=== PATIENT | female | born 1975 | race Two or more races ===

== ENCOUNTER 2020-06-28 08:38 | Emergency (ER) | payer MEDICAID, SELFPAY ==
[2020-06-28 08:45] VITALS: BP 145/75; PULSE 75; RESP 16; TEMP 36.9; O2SAT 98; BMI 30.5
--- NOTE | 2020-06-28 08:54 | ECG_ITS ---
Test Reason : CHEST WALL PAIN Blood Pressure : / mmHG Vent. Rate : 070 BPM Atrial Rate : 070 BPM P-R Int : 114 ms QRS Dur : 098 ms QT Int : 386 ms P-R-T Axes : 045 038 051 degrees QTc Int : 416 ms Normal sinus rhythm Normal ECG When compared with ECG of 25-APR-2020 08:44, No significant change was found Referred By: Martha Moore Electronically Signed By:ROLAND PRINCE MD
[2020-06-28 08:59] VITALS: PULSE 70
--- NOTE | 2020-06-28 09:01 | ED.ARRPALP ---
HPI - Arrhythmia/Palpitations General Chief Complaint: Arrhythmia/Palpitations Stated Complaint: CHEST PAIN Time Seen by Provider: 06/28/20 08:55 Source: patient Mode of arrival: ambulatory Limitations: no limitations History of Present Illness HPI narrative: patient comes to emergency room complaining of palpitations, and achiness on the left side of her chest. Patient states it started yesterday morning, it has been over 24 hours with a constant sensation in her chest. Patient states several months ago she was diagnosed with a DVT in her right upper extremity and back then she had palpitations. Patient states that she has a similar sensation in her chest, although her arm is not hurting. Patient denies fever chills cough or shortness of breath. MD complaint: palpitations Related Data Allergies Allergy/AdvReac Type Severity Reaction Status Date / Time Penicillins [PENICILLINS] Allergy Unknown RASH Unverified 05/24/20 18:56 sumatriptan [SUMATRIPTAN] Allergy Unknown DIFF Unverified 05/24/20 18:56 BREATHING Bunnys Allergy Unknown Rash/red Uncoded 06/05/17 00:00 eyes Cats Allergy Unknown Rash/red Uncoded 06/05/17 00:00 eye Dogs Allergy Unknown Rash/red Uncoded 06/05/17 00:00 eyes Review of Systems Review of Systems: Constitutional : No Weight loss, No Fever, No Chills, No Night Sweats, No Fatigue, No Malaise ENT/Mouth : No Hearing loss, No Ear Pain, No Nasal Congestion, No Sinus Pain, No Hoarseness, No sore throat, No Rhinorrhea, No Swallowing Difficulty Eyes: No Eye Pain, No Swelling, No Redness, No Foreign Body, No Discharge, No Vision Changes Cardiovascular : Achiness in the left side of the chest, No SOB, No Dyspnea on Exertion, No Orthopnea, No Edema, complaining of intermittent Palpitations Respiratory : No Cough, No Sputum, No Wheezing, No Smoke Exposure, No Dyspnea Gastrointestinal : No Nausea, No Vomiting, No Diarrhea, No Constipation, No abdominal Pain, No Hematochezia, No Melena Genitourinary : no irregular bleeding, No Dysuria, No Urinary Frequency, No Hematuria, No Urinary Incontinence, No Urgency, No Flank Pain, No Urinary Flow Changes, No Hesitancy Musculoskeletal : No joint pain, No Myalgias, No Joint Swelling Skin : No Skin Lesions, No rash Neuro : No Weakness, No Numbness, No Paresthesias, No Loss of Consciousness, No Dizziness, No Headache Psych : No Anxiety/Panic, No Depression, No SI/HI/AH/VH, No Social Issues, Heme/Lymph: No Bruising, No Bleeding,No Lymphadenopathy Endocrine : No Polyuria, No Polydipsia, No Temperature Intolerance FOR[facility]LY [facility] Past Medical History Medical History Diabetes DVT (deep venous thrombosis) Social History Social History Alcohol intake: never Smoked in Last 30 Days: No Use of substances other than those prescribed or required for medical reasons: No Advance Directives: No Advance Directives Information Provided: No Physical Exam Vital Signs: Vital Signs: Vital Signs Temp Pulse Resp BP Pulse Ox 06/28/20 08:45 98.4 F 75 16 145/75 H 98 Body Mass Index 30.5 Appearance: Alert. Oriented X3. No acute distress. Eyes: Pupils equal, round and reactive to light. ENT: Pharynx normal. Neck: Normal inspection. Neck supple. No lymph nodes noted. No crepitus CVS: Normal heart rate and rhythm. Pulses normal. Normal S1 and S2 Respiratory: No respiratory distress. Breath sounds normal. No Wheezing. No rales Abdomen: Soft and nontender. No rigidity. No distention. good BS x4 Skin: Skin warm and dry. Normal skin color. Normal skin turgor. Extremities: No lower extremity edema. No lower extremity edema. No Lacerations. No Rash Neuro: Oriented X 3. No motor deficit. No sensory deficit. Moving all extermities. No slurred speech. Course Course Course Narrative: at this time, patient is asymptomatic. I discussed with the patient her labs results, D-dimer negative, troponin negative, TSH within normal limits, EKG within normal limits. Patient struck to follow-up with her primary care physician. MDM - Arrhythmia/Palpitations Lab Data Result diagrams: 06/28/20 09:15 06/28/20 09:15 Labs: Lab Results 06/28/20 06/28/20 06/28/20 Range/Units 09:15 09:15 09:15 WBC 7.6 (4.8-10.8) X10*3/uL RBC 4.24 (4.20-5.50) X10*6/uL Hgb 9.5 L (12.0-16.0) g/dl Hct 31.4 L (37-47) % MCV 74.1 L (80-98) fL MCH 22.4 L (27.0-33.0) pg MCHC 30.3 L (31.0-35.0) g/dl RDW 17.6 H (11.0-16.0) % Plt Count 227 (160-400) X10*3/uL MPV 10.8 (9.4-12.3) fL Immature Gran % (Auto) 0.8 H (0.0-0.4) % Neut % (Auto) 68.2 (45-73) % Lymph % (Auto) 23.8 (20-40) % [place] % (Auto) 5.8 (2-11) % Eos % (Auto) 0.9 (0-4) % Baso % (Auto) 0.5 (0-2) % Lymph # (Auto) 1.8 (1.2-4.9) X10*3/uL [place] # (Auto) 0.4 (0.1-1.2) X10*3/uL Eos # (Auto) 0.1 (0.0-0.4) X10*3/uL Baso # (Auto) 0.0 (0.0-0.2) X10*3/uL Abs Immat Gran (auto) 0.06 H (0.00-0.03) X10*3/uL Absolute Neuts (auto) 5.2 (2.0-8.3) X10*3/uL Absolute Nucleated RBC 0.000 (0.0-0.012) X10*3/uL Nucleated RBC % (auto) 0.0 (0.0-0.2) /100WBC D-Dimer < 200 NG/ML Sodium 136 (135-145) mmol/L Potassium 4.2 (3.3-5.1) mmol/l Chloride 105 (96-108) mmol/L Carbon Dioxide 22 (22-29) mmol/L Anion Gap 13 (12-20) BUN 18 H (9-16) mg/dL Creatinine 0.79 (0.5-1.4) mg/dL Estim Creat Clear Calc 86.5 Estimated GFR > 60 Random Glucose 211 H (60-115) mg/dL Calcium 8.4 (8.4-10.2) mg/dL Troponin I High Sens (<3.5-17.0) ng/L TSH 1.10 (0.32-4.0) mIU/mL 06/28/20 Range/Units 09:15 WBC (4.8-10.8) X10*3/uL RBC (4.20-5.50) X10*6/uL Hgb (12.0-16.0) g/dl Hct (37-47) % MCV (80-98) fL MCH (27.0-33.0) pg MCHC (31.0-35.0) g/dl RDW (11.0-16.0) % Plt Count (160-400) X10*3/uL MPV (9.4-12.3) fL Immature Gran % (Auto) (0.0-0.4) % Neut % (Auto) (45-73) % Lymph % (Auto) (20-40) % [place] % (Auto) (2-11) % Eos % (Auto) (0-4) % Baso % (Auto) (0-2) % Lymph # (Auto) (1.2-4.9) X10*3/uL [place] # (Auto) (0.1-1.2) X10*3/uL Eos # (Auto) (0.0-0.4) X10*3/uL Baso # (Auto) (0.0-0.2) X10*3/uL Abs Immat Gran (auto) (0.00-0.03) X10*3/uL Absolute Neuts (auto) (2.0-8.3) X10*3/uL Absolute Nucleated RBC (0.0-0.012) X10*3/uL Nucleated RBC % (auto) (0.0-0.2) /100WBC D-Dimer NG/ML Sodium (135-145) mmol/L Potassium (3.3-5.1) mmol/l Chloride (96-108) mmol/L Carbon Dioxide (22-29) mmol/L Anion Gap (12-20) BUN (9-16) mg/dL Creatinine (0.5-1.4) mg/dL Estim Creat Clear Calc Estimated GFR Random Glucose (60-115) mg/dL Calcium (8.4-10.2) mg/dL Troponin I High Sens < 3.5 (<3.5-17.0) ng/L TSH (0.32-4.0) mIU/mL ECG Data Attestation: I personally reviewed and interpreted this ECG as follows: ( sinus rhythm, heart rate 70, QTC 416, no ST segment elevations or depressions, no T-wave inversions) Scores [place] DVT Alternative Dx as likely as or more likely than DVT: -2 Score: -2 2-tier Risk: unlikely risk (5%) 3-tier Risk: low risk (3%) Discharge Plan Discharge Clinical Impression: Palpitations, Chest pressure Patient Disposition: Home, Self-Care Instructions: Chest Pain (ED), Heart Palpitations (ED) Additional Instructions: Please follow-up with your primary care physician tomorrow. If you have any worsening or new symptoms, please return to the emergency room or call 911
[2020-06-28 09:24] LABS: MANUAL DIFF FLAG NO
--- NOTE | 2020-06-28 09:25 | PC.NURSE ---
pt does not remember doses and names of medications she takes.
[2020-06-28 09:35] LABS: Basophils Percent Auto 0.5 % (0-2); Eosinophils Absolute Auto 0.1 X10*3/uL (0.0-0.4); Eosinophils Percent Auto 0.9 % (0-4); Hematocrit 31.4 % (37-47); Hemoglobin 9.5 g/dl (12.0-16.0); Imm Gran Abs Auto 0.06 X10*3/uL (0.00-0.03); Imm Gran Pct Auto 0.8 % (0.0-0.4); Lymphocytes Absolute Auto 1.8 X10*3/uL (1.2-4.9); Lymphocytes Percent Auto 23.8 % (20-40); Mean Corpuscular HGB Conc 30.3 g/dl (31.0-35.0); Mean Corpuscular Hemoglobin 22.4 pg (27.0-33.0); Mean Corpuscular Volume 74.1 fL (80-98); Mean Platelet Volume 10.8 fL (9.4-12.3); Monocytes Absolute Auto 0.4 X10*3/uL (0.1-1.2); Monocytes Percent Auto 5.8 % (2-11); Neutrophils Absolute Auto 5.2 X10*3/uL (2.0-8.3); Neutrophils Percent Auto 68.2 % (45-73); Platelet Count 227 X10*3/uL (160-400); Red Blood Count 4.24 X10*6/uL (4.20-5.50); Red Cell Distribution Width 17.6 % (11.0-16.0); White Blood Count 7.6 X10*3/uL (4.8-10.8)
[2020-06-28 09:44] LABS: Anion Gap 13 (12-20); Blood Urea Nitrogen 18 mg/dL (9-16); Calcium 8.4 mg/dL (8.4-10.2); Carbon Dioxide 22 mmol/L (22-29); Chloride 105 mmol/L (96-108); Creatinine Clr Calc Pharmacy 86.5; Estimated Glomerular Filt Rate > 60; Glucose Random 211 mg/dL (60-115); Potassium 4.2 mmol/l (3.3-5.1); Sodium 136 mmol/L (135-145)
[2020-06-28 09:48] LABS: D Dimer < 200 NG/ML
[2020-06-28 09:52] LABS: Troponin-I High Sensitivity < 3.5 ng/L (<3.5-17.0)
== END 2020-06-28 10:52 | disposition home or self-care (01) ==
PROVIDERS: Emergency Provider Emergency Medicine; PCP Emergency Medicine
DX: R00.2 Palpitations (principal); R07.89 Other chest pain; Z86.718 Personal history of other venous thrombosis and embolism; Z79.899 Other long term (current) drug therapy
CPT/HCPCS: 36415; 80048; 84443; 84484; 85025; 85379; 93005; 99284

== ENCOUNTER 2020-08-25 13:02 | Emergency (ER) | payer OTHER, MEDICAID, SELFPAY ==
[2020-08-25 13:25] VITALS: BP 124/67; PULSE 74; RESP 18; TEMP 36.9; O2SAT 98; BMI 29.2
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
== END 2020-08-25 14:06 | disposition home or self-care (01) ==
PROVIDERS: Emergency Provider Emergency Medicine
DX: S00.83XA Contusion of other part of head, initial encounter (principal); G44.309 Post-traumatic headache, unspecified, not intractable; V43.52XA Car driver injured in collision with other type car in traffic accident, initial encounter; Y93.9 Activity, unspecified; Y92.410 Unspecified street and highway as the place of occurrence of the external cause; Y99.9 Unspecified external cause status
CPT/HCPCS: 99283

== ENCOUNTER 2020-10-07 13:53 | Emergency (ER) | payer MEDICAID, SELFPAY ==
[2020-10-07 14:26] VITALS: BP 188/79; PULSE 86; RESP 16; TEMP 36.9; O2SAT 99; BMI 29.4
[2020-10-07] MEDS: 0.9 % Sodium Chloride 1,000 ML 999 ML IVCONT (15:36)
--- NOTE | 2020-10-07 15:42 | ED_ITS ---
HPI - General Adult General Chief complaint: Nausea/Vomiting/Diarrhea Stated complaint: abd pain Time Seen by Provider: 10/07/20 15:27 Source: patient Mode of arrival: ambulatory Limitations: no limitations History of Present Illness HPI narrative: 45-year-old female walked in with 6 days of nonbloody watery diarrhea, associated with intermittent crampy pain of the abdomen. Pain started 6 days ago, described as intermittent crampy pain, no radiation of the pain, any type of food will make the pain and diarrhea worse, nothing relieves the symptoms. Otherwise patient declined nausea and vomiting, patient has been having good appetite. No fever, no chills. Related Data Previous Rx's Medication Instructions Recorded loperamide [Anti-Diarrheal 2 mg PO Q6H PRN #10 cap 10/07/20 (loperamide)] Allergies Allergy/AdvReac Type Severity Reaction Status Date / Time Penicillins [PENICILLINS] Allergy Unknown RASH Verified 08/25/20 13:24 sumatriptan [SUMATRIPTAN] Allergy Unknown DIFF Verified 08/25/20 13:24 BREATHING Bunnys Allergy Unknown Rash/red Uncoded 06/05/17 00:00 eyes Cats Allergy Unknown Rash/red Uncoded 06/05/17 00:00 eye Dogs Allergy Unknown Rash/red Uncoded 06/05/17 00:00 eyes Review of Systems Review of Systems: All other systems are reviewed and are negative Constitutional: Reports as per HPI and Reports no additional constitutional complaints Eyes: Reports as per HPI and Reports no additional eye complaints Reports system reviewed and no additional complaints, except as documented Cardiovascular: Reports as per HPI and Reports no additional cardiovascular complaints Respiratory: Reports as per HPI and Reports no additional respiratory complaints Gastrointestinal: Reports as per HPI and Reports no additional gastrointestinal complaints Genitourinary: Reports no additional female genitourinary complaints Musculoskeletal: Reports no additional musculoskeletal complaints Skin/Breast: Reports system reviewed and no additional complaints, except as docu Psychiatric: Reports no additional psychiatric complaints Endocrine: Reports no additional endocrine complaints Hematologic/Lymphatic: Reports no additional hematologic/lymphatic complaints Allergic/Immunologic: Reports no additional allergic/immunologic complaints Reports system reviewed and no additional complaints, except as documented and Reports Abnormal speech present [facility] Past Medical History Medical History Diabetes DVT (deep venous thrombosis) Social History Social History Alcohol intake: never Smoking Status: Never smoker Use of substances other than those prescribed or required for medical reasons: No Advance Directives: No Advance Directives Information Provided: Yes Physical Exam Vital Signs: Vital Signs: Last Vital Signs Temp 98.5 F 10/07/20 14:26 Pulse 75 10/07/20 15:52 Resp 18 10/07/20 15:52 BP 109/48 L 10/07/20 15:52 Pulse Ox 100 10/07/20 15:52 Body Mass Index 29.4 Vital signs have been reviewed as normal and appeared to be correct. Blood pressure normal. Heart rate normal. Respiration rate normal. Temperature normal. Oxygen saturation normal. Appearance: Alert. Oriented X3. No acute distress. Head: Normal external exam. Normocephalic. Atraumatic. No Ly signs noted. No raccoon eyes noted Eyes: PERRLA. EOMI. Conjunctiva and sclera normal. Eyelids normal. ENT: EAC normal. TM's Normal. Pharynx normal. Uvula midline. Moist mucous membranes. No trismus noted. No drooling noted. No muffled voice noted. Neck: Normal inspection. Neck supple. FROM. No adenopathy. Thyroid Normal. No meningeal signs. No neck mass noted. CVS: Normal heart rate and rhythm. Heart sound normal. No murmurs noted. Pulses normal throughout. Respiratory: No respiratory distress. Painless inspiration. Breath sounds normal. No wheezes/rales/rhonchi noted. Chest nontender. No accessory muscle usage noted or decreased air movement noted. Abdomen: Soft, mild tenderness in the left lower quadrant, no rebound, no guarding.. Bowel sounds normal in all 4 quadrants. No distention noted. No organomegaly noted. No visible injury noted. Back: No CVA tenderness. Full range of motion noted. Skin: Skin warm and dry. Normal skin color. Normal skin turgor. No rashes/lesions/lacerations noted. Extremities: No lower extremity edema. Extremities exhibit normal range of motion. Extremities nontender. Neuro: Oriented X 3. No motor deficit. No sensory deficit. Reflexes normal. Course Course Course Narrative: Assessment and plan. 45-year-old female came in with 6 days of nonbloody watery diarrhea with abdominal cramps intermittent for 6 days. Physical exam/labs/vital signs appear stable decide very mild and benign left lower abdominal tenderness. Patient was instructed to drink plenty of fluid will discharge the patient on Imodium and reassess herself patient was instructed to return to the emergency department if any worsening of her symptoms. Medical Decision Making Lab Data Lab results reviewed: Yes I reviewed the patient's lab results. Result diagrams: 10/07/20 15:35 10/07/20 15:35 Labs: Lab Results 10/07/20 10/07/20 10/07/20 Range/Units 15:35 15:35 15:46 WBC 9.8 (4.8-10.8) X10*3/uL RBC 4.58 (4.20-5.50) X10*6/uL Hgb 10.2 L (12.0-16.0) g/dl Hct 34.0 L (37-47) % MCV 74.2 L (80-98) fL MCH 22.3 L (27.0-33.0) pg MCHC 30.0 L (31.0-35.0) g/dl RDW 16.4 H (11.0-16.0) % Plt Count 261 (160-400) X10*3/uL MPV 11.3 (9.4-12.3) fL Immature Gran % (Auto) 0.3 (0.0-0.4) % Neut % (Auto) 69.2 (45-73) % Lymph % (Auto) 22.5 (20-40) % [place] % (Auto) 6.9 (2-11) % Eos % (Auto) 0.7 (0-4) % Baso % (Auto) 0.4 (0-2) % Lymph # (Auto) 2.2 (1.2-4.9) X10*3/uL [place] # (Auto) 0.7 (0.1-1.2) X10*3/uL Eos # (Auto) 0.1 (0.0-0.4) X10*3/uL Baso # (Auto) 0.0 (0.0-0.2) X10*3/uL Abs Immat Gran (auto) 0.03 (0.00-0.03) X10*3/uL Absolute Neuts (auto) 6.8 (2.0-8.3) X10*3/uL Absolute Nucleated RBC 0.000 (0.0-0.012) X10*3/uL Nucleated RBC % (auto) 0.0 (0.0-0.2) /100WBC Urine Color YELLOW Urine Appearance CLEAR Urine pH 6.0 (5.0-8.0) Ur Specific [place] >= 1.030 H (1.005-1.025) Urine Protein NEG (NEG-TRACE) MG/DL Urine Glucose (UA) 250 H (NEG) MG/DL Urine Ketones NEG (NEG) MG/DL Urine Blood NEG (NEG) Urine Nitrite NEG (NEG) Ur Leukocyte Esterase NEG (NEG) Urine Test NEGATIVE (NEGATIVE) COVID-19 (RICKY) Negative (Negative) COVID-19 Clin Com See Note Discharge Plan Discharge Clinical Impression: Abdominal pain Diarrhea Qualifiers: Diarrhea type: unspecified type Qualified Code(s): R19.7 - Diarrhea, unspecified Patient Disposition: Home, Self-Care Instructions: Abdominal Pain (ED) Prescriptions: New loperamide [Anti-Diarrheal (loperamide)] 2 mg capsule 2 mg PO Q6H PRN (Reason: loose stool) Qty: 10 RF: 0 Referrals: [facility] [Primary Care Provider] - 2 days Alex Hampton MD [Physician] - 2 days
[2020-10-07 15:45] LABS: MANUAL DIFF FLAG NO
[2020-10-07 15:47] LABS: Basophils Percent Auto 0.4 % (0-2); Eosinophils Absolute Auto 0.1 X10*3/uL (0.0-0.4); Eosinophils Percent Auto 0.7 % (0-4); Hemoglobin 10.2 g/dl (12.0-16.0); Imm Gran Abs Auto 0.03 X10*3/uL (0.00-0.03); Imm Gran Pct Auto 0.3 % (0.0-0.4); Lymphocytes Absolute Auto 2.2 X10*3/uL (1.2-4.9); Lymphocytes Percent Auto 22.5 % (20-40); Mean Corpuscular Hemoglobin 22.3 pg (27.0-33.0); Mean Corpuscular Volume 74.2 fL (80-98); Mean Platelet Volume 11.3 fL (9.4-12.3); Monocytes Absolute Auto 0.7 X10*3/uL (0.1-1.2); Monocytes Percent Auto 6.9 % (2-11); Neutrophils Absolute Auto 6.8 X10*3/uL (2.0-8.3); Neutrophils Percent Auto 69.2 % (45-73); Platelet Count 261 X10*3/uL (160-400); Red Blood Count 4.58 X10*6/uL (4.20-5.50); Red Cell Distribution Width 16.4 % (11.0-16.0); White Blood Count 9.8 X10*3/uL (4.8-10.8)
[2020-10-07 15:48] LABS: Glucose Urine UA 250 MG/DL (NEG); Leukocyte Esterase Urine NEG (NEG); Nitrite Urine NEG (NEG); Specific Gravity - Urine >= 1.030 (1.005-1.025); Urine Blood NEG (NEG); Urine Ketones NEG (NEG); Urine Protein NEG (NEG-TRACE)
[2020-10-07 15:49] LABS: UPreg QC Valid YES; Urine Pregnancy NEGATIVE (NEGATIVE)
[2020-10-07 15:51] LABS: Appearance Urine CLEAR; Color Urine YELLOW
[2020-10-07] MEDS: Loperamide HCl 2 MG CAPSULE PO (15:51)
[2020-10-07 15:52] VITALS: BP 109/48; PULSE 75; RESP 18; O2SAT 100
--- NOTE | 2020-10-07 15:54 | PC.NURSE ---
patient a&ox3, iv inserted, labs drawn, urine obtained, pt medicated per order, vss, will continue to monitor.
[2020-10-07 16:06] LABS: COVID-19 Test Negative (Negative); IDNOW Serial# 9DD0AD1C
[2020-10-07 16:18] LABS: Alanine Aminotransferase 25 U/L (0-31); Alkaline Phosphatase 75 U/L (39-117); Anion Gap 13 (12-20); Aspartate Amino Transferase 32 U/L (5-31); Bilirubin Direct < 0.2 mg/dL (0.0-0.5); Bilirubin Total < 0.2 mg/dL (0.0-1.0); Blood Urea Nitrogen 17 mg/dL (9-16); Calcium 8.5 mg/dL (8.4-10.2); Carbon Dioxide 23 mmol/L (22-29); Chloride 104 mmol/L (96-108); Estimated Glomerular Filt Rate > 60; Glucose Random 164 mg/dL (60-115); Lipase 33 U/L (8-78); Potassium 4.2 mmol/L (3.3-5.1); Sodium 136 mmol/L (135-145); Total Protein 6.8 g/dL (6.5-8.0)
[2020-10-07] MEDS: Fluconazole 150 MG TABLET PO (16:40)
== END 2020-10-07 16:43 | disposition home or self-care (01) ==
PROVIDERS: Emergency Provider Emergency Medicine
DX: R19.7 Diarrhea, unspecified (principal); R11.2 Nausea with vomiting, unspecified; R10.9 Unspecified abdominal pain; Z20.822 Contact with and (suspected) exposure to COVID-19
CPT/HCPCS: 36415; 80048; 80076; 81003; 81025; 83690; 85025; 87635; 96360; 99284

== ENCOUNTER 2020-10-17 15:52 | Outpatient (REF) | payer MEDICAID, SELFPAY ==
--- NOTE | ~2020-10-17 | MM_ITS ---
EXAMINATION: MM SCREENING DIGITAL BREAST TOMOSYNTHESIS, BILATERAL CLINICAL INFORMATION: Screening. Asymptomatic. The lifetime risk of breast cancer based on the Tyrer-Cuzick Model is 8.2%. COMPARISON: Mammography: October 12, 2019 and October 30, 2017 TECHNIQUE: Digital breast tomosynthesis is performed in both the craniocaudal and mediolateral oblique views along with computer-aided detection (CAD). Synthesized 2D images are generated from the tomosynthesis. FINDINGS: The breasts are almost entirely fatty (ACR BI-RADS breast composition Category a). There are no significant masses, abnormal calcifications, or other abnormalities. MM/MM tomosynthesis screening BI IMPRESSION: There are no significant changes from prior study. ASSESSMENT: BI-RADS 1: Negative RECOMMENDATION: Routine annual mammography screening. This patient's information was entered into a reminder system with a target due date for their next mammogram.
== END 2020-10-17 15:53 | disposition home or self-care (01) ==
LOC: HO.MAMMO 15:52
PROVIDERS: PCP Emergency Medicine; Visit Provider Emergency Medicine
DX: Z12.31 Encounter for screening mammogram for malignant neoplasm of breast (principal)
CPT/HCPCS: 77063; 77067

== ENCOUNTER 2020-11-06 07:25 | Outpatient (REF) | payer MEDICAID, SELFPAY ==
[2020-11-06 08:48] LABS: MANUAL DIFF FLAG NO
[2020-11-06 08:51] LABS: Basophils Absolute Auto 0.1 X10*3/uL (0.0-0.2); Basophils Percent Auto 0.6 % (0-2); Eosinophils Absolute Auto 0.1 X10*3/uL (0.0-0.4); Eosinophils Percent Auto 1.3 % (0-4); Hematocrit 34.6 % (37-47); Hemoglobin 10.3 g/dl (12.0-16.0); Imm Gran Abs Auto 0.02 X10*3/uL (0.00-0.03); Imm Gran Pct Auto 0.2 % (0.0-0.4); Lymphocytes Absolute Auto 2.1 X10*3/uL (1.2-4.9); Lymphocytes Percent Auto 24.6 % (20-40); Mean Corpuscular HGB Conc 29.8 g/dl (31.0-35.0); Mean Corpuscular Hemoglobin 21.5 pg (27.0-33.0); Mean Corpuscular Volume 72.4 fL (80-98); Mean Platelet Volume 11.7 fL (9.4-12.3); Monocytes Absolute Auto 0.5 X10*3/uL (0.1-1.2); Monocytes Percent Auto 5.4 % (2-11); Neutrophils Absolute Auto 5.7 X10*3/uL (2.0-8.3); Neutrophils Percent Auto 67.9 % (45-73); Platelet Count 272 X10*3/uL (160-400); Red Blood Count 4.78 X10*6/uL (4.20-5.50); Red Cell Distribution Width 16.8 % (11.0-16.0); White Blood Count 8.4 X10*3/uL (4.8-10.8)
[2020-11-06 09:08] LABS: Estimated Average Glucose 174 mg/dL; Hemoglobin A1c % 7.7 %
[2020-11-06 09:15] LABS: Microalbum/Creatinine Ratio Ur 6.7 ug/mg cr
[2020-11-06 09:26] LABS: Cholesterol 188 mg/dL; HDL Cholesterol 51 mg/dL; LDL Cholesterol Calculated 124 mg/dl; Triglycerides 68 mg/dL
[2020-11-06 09:36] LABS: Ferritin 3 ng/mL (10-250)
== END 2020-11-06 07:26 | disposition home or self-care (01) ==
LOC: HO.LAB 07:25
PROVIDERS: PCP Family Medicine; Visit Provider Family Medicine
DX: E11.9 Type 2 diabetes mellitus without complications (principal)
CPT/HCPCS: 36415; 80061; 82043; 82728; 83036; 85025

== ENCOUNTER 2021-02-07 19:30 | Emergency (ER) | payer MEDICAID, SELFPAY ==
--- NOTE | ~2021-02-07 | CT_ITS ---
EXAMINATION: CT ABDOMEN AND PELVIS WITH CONTRAST CLINICAL INFORMATION: Left-sided abdominal pain COMPARISON: CT abdomen pelvis 03/16/2016 TECHNIQUE: Multidetector volumetric images were obtained from the superior aspect of the liver through the pubic symphysis following administration 85 mL of Omnipaque 350 intravenous contrast. Sagittal and coronal reformatted images were obtained on the technologist's workstation. Oral contrast: No This CT examination was performed using dose optimization techniques as appropriate, variously including the following: *Automated exposure control *Adjustment of mA and/or kV according to patient size (this includes techniques or standardized protocols for targeted exams where dose is matched to indication/reason for exam; i.e. extremities or head) *Use of iterative reconstruction technique DLP: 581 mGy-cm FINDINGS: LUNG BASES: The visualized lung bases are unremarkable. Minimal bibasilar atelectasis is present LIVER, GALLBLADDER, AND BILIARY TREE: The liver is normal in size, shape, and attenuation. No focal hepatic lesion or biliary ductal dilatation is present. The gallbladder is contracted but otherwise unremarkable with no evidence of radiopaque gallstones, gallbladder wall thickening, or obvious pericholecystic inflammatory changes. PANCREAS: Unremarkable. SPLEEN: Unremarkable. ADRENAL GLANDS: Unremarkable. KIDNEYS AND URETERS: The kidneys are normal in size, shape, and attenuation. No hydronephrosis, hydroureter, or calculi seen. No perinephric stranding. BLADDER: Unremarkable. GASTROINTESTINAL TRACT: In the distal descending colon, on the medial aspect, there is a rounded area of fat with inflammatory change around it consistent with epiploic appendagitis. No diverticula are seen in this area and there is no evidence of diverticulitis. The small and large bowel are otherwise unremarkable. The appendix is unremarkable. ABDOMINAL WALL: No significant hernia is appreciated. LYMPH NODES: No retroperitoneal lymphadenopathy. VASCULAR: Unremarkable. PELVIC VISCERA: A 3.8 x 1.9 x 2.2 cm cyst is noted in the left ovary. No significant right ovarian cysts are seen. Larger left ovarian cysts were present on the 03/16/2016 no free intraperitoneal fluid is seen. A normal anteverted uterus is present.. OSSEOUS STRUCTURES: Unremarkable. CT/CT abdomen pelvis w con 1. IMPRESSION: 2. Epiploic appendagitis involving the distal descending colon. 3. Small left ovarian cyst. Much larger cysts were present at the time of the prior exam.
[2021-02-07 20:50] VITALS: BP 140/69; PULSE 68; RESP 18; TEMP 37.1; O2SAT 100; BMI 28.1
[2021-02-07 21:52] VITALS: BP 128/67; PULSE 55; RESP 17; TEMP 36.9; O2SAT 96
[2021-02-07 22:00] LABS: MANUAL DIFF FLAG NO
[2021-02-07 22:06] LABS: Basophils Percent Auto 0.4 % (0-2); Eosinophils Absolute Auto 0.2 X10*3/uL (0.0-0.4); Hematocrit 32.5 % (37-47); Hemoglobin 10.2 g/dl (12.0-16.0); Imm Gran Abs Auto 0.02 X10*3/uL (0.00-0.03); Imm Gran Pct Auto 0.2 % (0.0-0.4); Lymphocytes Absolute Auto 2.8 X10*3/uL (1.2-4.9); Lymphocytes Percent Auto 31.7 % (20-40); Mean Corpuscular HGB Conc 31.4 g/dl (31.0-35.0); Mean Corpuscular Hemoglobin 24.4 pg (27.0-33.0); Mean Corpuscular Volume 77.8 fL (80-98); Mean Platelet Volume 11.1 fL (9.4-12.3); Monocytes Absolute Auto 0.6 X10*3/uL (0.1-1.2); Monocytes Percent Auto 6.3 % (2-11); Neutrophils Absolute Auto 5.3 X10*3/uL (2.0-8.3); Neutrophils Percent Auto 59.4 % (45-73); Platelet Count 235 X10*3/uL (160-400); Red Blood Count 4.18 X10*6/uL (4.20-5.50); Red Cell Distribution Width 17.1 % (11.0-16.0)
[2021-02-07 22:06] LABS: UPreg QC Valid YES; Urine Pregnancy NEGATIVE (NEGATIVE)
[2021-02-07 22:08] LABS: Glucose Urine UA NEG (NEG); Leukocyte Esterase Urine NEG (NEG); Nitrite Urine NEG (NEG); Specific Gravity - Urine 1.025 (1.005-1.025); Urine Blood 3+ (NEG); Urine Ketones NEG (NEG); Urine Protein NEG (NEG-TRACE)
[2021-02-07 22:13] LABS: Appearance Urine CLEAR; Color Urine YELLOW
[2021-02-07 22:22] LABS: Squamous Epithelial Cell Urine 1+ /LPF; WBC Urine 0-2 /HPF (0-4)
[2021-02-07 22:23] LABS: Bacteria Urine TRACE /LPF; Mucus Urine 1+ /LPF
--- NOTE | 2021-02-07 22:31 | ED_ITS ---
HPI - Abdominal Pain General Chief Complaint: Abdominal Pain Stated Complaint: side pain Time Seen by Provider: 02/07/21 22:31 Source: patient Mode of arrival: ambulatory History of Present Illness HPI narrative: This is a 45-year-old female with history of diabetes and presents with left-sided abdominal discomfort, nonradiating that started yesterday and has not been associated with fever, chills, nausea, vomiting, diarrhea, urinary pain/burning/frequency. In addition, patient denies any cough or shortness of breath. Patient states that she started her period and thought that she was having possible menstrual cramps or that she was ?gassy? but after having bowel movements there was no improvement in her abdominal discomfort. Sh e denies any trauma. Related Data Previous Rx's Medication Instructions Recorded loperamide [Anti-Diarrheal 2 mg PO Q6H PRN #10 cap 10/07/20 (loperamide)] Allergies Allergy/AdvReac Type Severity Reaction Status Date / Time Penicillins [PENICILLINS] Allergy Unknown RASH Verified 02/07/21 20:50 sumatriptan [SUMATRIPTAN] Allergy Unknown DIFF Verified 02/07/21 20:50 BREATHING Bunnys Allergy Unknown Rash/red Uncoded 06/05/17 00:00 eyes Cats Allergy Unknown Rash/red Uncoded 06/05/17 00:00 eye Dogs Allergy Unknown Rash/red Uncoded 06/05/17 00:00 eyes Review of Systems Review of Systems Pertinent positives and negatives as stated in HPI 10 point review of systems is otherwise negative. Physical Exam Vital Signs: Vital Signs: Last Vital Signs Temp 98.4 F 02/07/21 21:52 Pulse 55 02/07/21 23:59 Resp 17 02/07/21 23:59 BP 134/72 02/07/21 23:59 Pulse Ox 97 02/07/21 23:59 Body Mass Index 28.1 VITAL SIGNS: Reviewed. GENERAL: Well developed, well nourished, in no acute distress. HEAD: Normocephalic/atraumatic EYES: PERRLA, EOMI OROPHARYNX: no oral lesions noted, posterior pharynx clear NECK: Supple, no adenopathy LUNGS: Normal breath sounds. No adventitious sounds or accessory muscle use. SpO2<96> CARDIOVASCULAR: Regular rate and rhythm without noted murmurs ABDOMEN: Soft, mild tenderness on left abdomen without rebound, non-distended with bowel sounds. NEUROLOGIC: Alert and oriented x 4. Strength and sensation to light touch were grossly intact x 4. Course Course Course Narrative: This is a 45-year-old female with history and clinical presentation suggestive of possible diverticulitis, constipation/gas, less likely pneumonia/pyelonephritis/renal colic. Review of all investigations consistent with epiploic appendagitis. All results discussed with the patient at bedside showed be discharged with combination analgesics and instructions to follow-up with her PCP. MDM - Abdominal Pain Lab Data Result diagrams: 02/07/21 21:51 02/07/21 21:52 Labs: Lab Results 02/07/21 02/07/21 02/07/21 Range/Units 21:51 21:51 21:52 WBC 9.0 (4.8-10.8) X10*3/uL RBC 4.18 L (4.20-5.50) X10*6/uL Hgb 10.2 L (12.0-16.0) g/dl Hct 32.5 L (37-47) % MCV 77.8 L (80-98) fL MCH 24.4 L (27.0-33.0) pg MCHC 31.4 (31.0-35.0) g/dl RDW 17.1 H (11.0-16.0) % Plt Count 235 (160-400) X10*3/uL MPV 11.1 (9.4-12.3) fL Immature Gran % (Auto) 0.2 (0.0-0.4) % Neut % (Auto) 59.4 (45-73) % Lymph % (Auto) 31.7 (20-40) % Bryan % (Auto) 6.3 (2-11) % Eos % (Auto) 2.0 (0-4) % Baso % (Auto) 0.4 (0-2) % Lymph # (Auto) 2.8 (1.2-4.9) X10*3/uL Bryan # (Auto) 0.6 (0.1-1.2) X10*3/uL Eos # (Auto) 0.2 (0.0-0.4) X10*3/uL Baso # (Auto) 0.0 (0.0-0.2) X10*3/uL Abs Immat Gran (auto) 0.02 (0.00-0.03) X10*3/uL Absolute Neuts (auto) 5.3 (2.0-8.3) X10*3/uL Absolute Nucleated RBC 0.000 (0.0-0.012) X10*3/uL Nucleated RBC % (auto) 0.0 (0.0-0.2) /100WBC Sodium 141 (135-145) mmol/L Potassium 4.1 (3.3-5.1) mmol/L Chloride 107 (96-108) mmol/L Carbon Dioxide 26 (22-29) mmol/L Anion Gap 12 (12-20) BUN 21 H (9-16) mg/dL Creatinine 0.80 (0.5-1.4) mg/dL Estim Creat Clear Calc 81.3 Estimated GFR > 60 Random Glucose 139 H (60-115) mg/dL Calcium 9.0 (8.4-10.2) mg/dL Lipase 36 (8-78) U/L Urine Color Urine Appearance Urine pH (5.0-8.0) Ur Specific [place] (1.005-1.025) Urine Protein (NEG-TRACE) MG/DL Urine Glucose (UA) (NEG) MG/DL Urine Ketones (NEG) MG/DL Urine Blood (NEG) Urine Nitrite (NEG) Ur Leukocyte Esterase (NEG) Urine RBC (0) /HPF Urine WBC (0-4) /HPF Ur Squamous Epith Cells /LPF Urine Bacteria /LPF Urine Mucus /LPF Urine Test (NEGATIVE) 02/07/21 02/07/21 Range/Units 21:52 21:52 WBC (4.8-10.8) X10*3/uL RBC (4.20-5.50) X10*6/uL Hgb (12.0-16.0) g/dl Hct (37-47) % MCV (80-98) fL MCH (27.0-33.0) pg MCHC (31.0-35.0) g/dl RDW (11.0-16.0) % Plt Count (160-400) X10*3/uL MPV (9.4-12.3) fL Immature Gran % (Auto) (0.0-0.4) % Neut % (Auto) (45-73) % Lymph % (Auto) (20-40) % Bryan % (Auto) (2-11) % Eos % (Auto) (0-4) % Baso % (Auto) (0-2) % Lymph # (Auto) (1.2-4.9) X10*3/uL Bryan # (Auto) (0.1-1.2) X10*3/uL Eos # (Auto) (0.0-0.4) X10*3/uL Baso # (Auto) (0.0-0.2) X10*3/uL Abs Immat Gran (auto) (0.00-0.03) X10*3/uL Absolute Neuts (auto) (2.0-8.3) X10*3/uL Absolute Nucleated RBC (0.0-0.012) X10*3/uL Nucleated RBC % (auto) (0.0-0.2) /100WBC Sodium (135-145) mmol/L Potassium (3.3-5.1) mmol/L Chloride (96-108) mmol/L Carbon Dioxide (22-29) mmol/L Anion Gap (12-20) BUN (9-16) mg/dL Creatinine (0.5-1.4) mg/dL Estim Creat Clear Calc Estimated GFR Random Glucose (60-115) mg/dL Calcium (8.4-10.2) mg/dL Lipase (8-78) U/L Urine Color YELLOW Urine Appearance CLEAR Urine pH 6.0 (5.0-8.0) Ur Specific [place] 1.025 (1.005-1.025) Urine Protein NEG (NEG-TRACE) MG/DL Urine Glucose (UA) NEG (NEG) MG/DL Urine Ketones NEG (NEG) MG/DL Urine Blood 3+ H (NEG) Urine Nitrite NEG (NEG) Ur Leukocyte Esterase NEG (NEG) Urine RBC 15-29 H (0) /HPF Urine WBC 0-2 (0-4) /HPF Ur Squamous Epith Cells 1+ /LPF Urine Bacteria TRACE /LPF Urine Mucus 1+ /LPF Urine Test NEGATIVE (NEGATIVE) Discharge Plan Discharge Clinical Impression: Epiploic appendagitis Patient Disposition: Home, Self-Care Additional Instructions: 1. Resume all home medications as prescribed. 2. Tylenol 1000 mg, orally, every 6 hours as needed for pain control. Do not exceed 4000 mg within 24 hours. 3. Ibuprofen 400 mg, orally with milk or food, every 6 hours as needed for pain control. Recommend taking this together with Tylenol for additional symptom relief. 4. Please follow-up with your primary care provider in 2-3 days for re- evaluation. Return to the ER for any acute worsening of your symptoms. Prescriptions: No Action loperamide [Anti-Diarrheal (loperamide)] 2 mg capsule 2 mg PO Q6H PRN (Reason: loose stool) Qty: 10 RF: 0 Referrals: Randi Chávez MD [Primary Care Provider] - 2 days (Re-evaluation for epiploic appendagitis.) REPLACED BY [facility] Past Medical History Source: nursing notes reviewed Medical History Diabetes DVT (deep venous thrombosis) Social History Social History Alcohol intake: never Advance Directives: No Advance Directives Information Provided: No Patient : No
[2021-02-07 22:34] LABS: Anion Gap 12 (12-20); Blood Urea Nitrogen 21 mg/dL (9-16); Carbon Dioxide 26 mmol/L (22-29); Chloride 107 mmol/L (96-108); Creatinine Clr Calc Pharmacy 81.3; Estimated Glomerular Filt Rate > 60; Glucose Random 139 mg/dL (60-115); Potassium 4.1 mmol/L (3.3-5.1); Sodium 141 mmol/L (135-145)
[2021-02-07 22:35] LABS: Lipase 36 U/L (8-78)
[2021-02-07] MEDS: iohexoL 350 MG/ML 100 ML INFUS..BTL 85 ML IV (23:52)
[2021-02-07 23:59] VITALS: BP 134/72; PULSE 55; RESP 17; O2SAT 97
[2021-02-08] MEDS: 0.9 % Sodium Chloride 1,000 ML 999 ML IV (00:01)
== END 2021-02-08 02:03 | disposition home or self-care (01) ==
PROVIDERS: Emergency Provider Student in an Organized Health Care Education/Training Program; PCP Family Medicine
DX: K63.89 Other specified diseases of intestine (principal); R10.9 Unspecified abdominal pain; Z86.718 Personal history of other venous thrombosis and embolism; Z79.899 Other long term (current) drug therapy
CPT/HCPCS: 36415; 74177; 80048; 81001; 81003; 81025; 83690; 85025; 96360; 99284; Q9967

== ENCOUNTER 2021-06-04 10:15 | Outpatient (REF) | payer MEDICAID, SELFPAY ==
--- NOTE | 2021-06-11 11:30 | MHC.AU.ANO ---
Adult Audiological Evaluation Date of Visit: 06/04/21 Blackjack Supervisor Used: Not Applicable Reason for Appointment: Audiologic re-evaluation due to increasing difficulties understanding speech which is now significantly impacting daily functioning. Izabella was previously tested at this office in May 2019 with results indicating normal peripheral hearing, as well as normal cochlear and middle ear function for both ears. Provided communication strategies and recommended consideration for a medical consultation with a Neurologist or Waste Management Specialist regarding her significant aural symptoms related to migraines. This consultation was not pursued. Does patient feel they have a hearing loss?: Yes If Yes, Which Ear?: Both Ears Hearing Handicap Inventory: HHIE SCORE: 26 Based on HHIE score, patient has: Severe perceived hearing handicap Medical History: Medical History: Diabetes, Migraines, COVID-19, and history of anemia Medication List: Trulicity, Metformin, Melatonin, Crestor, Escitalopram Oxalate, Famotidine, Fioricet, Baclofen, Naprosyn, Epipen, Loratadine, Minoxidil, Ferrous Gluconate, Tramadol, Vitamin B, Magnesium, Finasteride, Omeprazole, Otoscopy: Right Ear: Unremarkable Left Ear: Unremarkable Tympanometry: Tympanometry performed due to: To assess integrity of the middle ear system Right Ear: Normal Middle Ear System (Type A) Left Ear: Normal Middle Ear System (Type A) Acoustic Reflexes: Ipsilateral Probe Right: 500 Hz: Present 1000 Hz: Present 2000 Hz: Present 4000 Hz: Present Probe Left: 500 Hz: Present 1000 Hz: Present 2000 Hz: Present 4000 Hz: Present Otoacoustic Emissions Frequency Range Used: 1.6-8 kHz Right Ear Results: Present 0367-3727 Hz, Absent 8000 Hz Analysis: Present emissions suggest normal cochlear function Rules out peripheral hearing loss greater than a mild degree Reduced/Absent emissions suggest cochlear dysfunction Left Ear Results: Present Emissions Analysis: Present emissions suggest normal cochlear function Rules out peripheral hearing loss greater than a mild degree Hearing Evaluation: Transducer(s) Used: Circumaural Headphones Bone Conduction Method: Conventional Audiometry Stimuli Used: Pure Tones Right Ear: Description of Hearing: Normal to borderline normal thresholds at 250-8000 Hz. Compared to the left ear, thresholds at 1000 and 8000 Hz are 10-15 dB poorer. Left Ear: Description of Hearing: Normal to borderline normal thresholds at 250-8000 Hz. Speech Recognition Threshold (SRT): Method Used: Monitored Live Voice Stimuli Used: Spondee Words Right Ear: 10 dB HL Left Ear: 10 dB HL Word Discrimination: Method: Recorded Lists Word Lists Used: NU-6 Right Ear: 92% at 50 dB HL Left Ear: 92% at 50 dB HL QuickSIN: Binaural Quick SIN Test: 15 dB SNR Loss suggesting severe difficulty understanding speech with increasing levels of background noise. Comparison: Compared to most recent evaluation: Overall 5-15 dB decrease in hearing thresholds for both ears Interpretation of Results: The Mwajrm-lz-Vnhcx test indicates Izabella experiences significant difficulty understanding speech in noise despite overall normal hearing thresholds and excellent speech discrimination in quiet. This test was performed in the controlled test environment with Izabella's full attention to the listening task. Real world listening with background noise and distractions will cause even further speech discrimination problems. Recommendations: - Consultation with an Waste Management Specialist is recommended due to the continued aural migraine symptoms and decreased hearing thresholds and symptoms. - Due to the fact Josephs hearing difficulties are now significantly impacting her daily functioning and causing more stress, discussed Jayce Montnets II hearing devices/FM system to help with the difficulty understanding speech in noise. This device does not provide amplification, but brings the speech of the person using the FM microphone directly with the hearing devices worn by Izabella. Unfortunately, insurance does not cover this FM system. Her insurance would cover traditional hearing aids. It is recommended Izabella contact [place] [facility] ([facility]) to determine if she is eligible to obtain a Phonak Jayce Select iN microphone which would be placed on the person speaking, and wirelessly connect to hearing aids obtained through her insurance. This device will significantly improve the [id number] ratio and her ability to the understand the primary speaker. - If Izabella is eligible for [facility] and would like to pursue the hearing aid/Jayce Select iN FM recommendation, she may schedule a Hearing Aid Evaluation appointment. This evaluation needs to be scheduled within 6 months of this hearing test. - Audiological re-evaluation in one year. Will send a reminder card. Diagnosis: Primary Diagnosis: H93.293 Abnormal Auditory Perception Services Performed: Comprehensive Audiological Evaluation (CPT 80158) Diagnostic Otoacoustic Emissions (CPT 93627, 26+TC) Tympanometry and Acoustic Reflexes (CPT 20557) Signature: Provider: Sharmaine Pineda, [facility]
== END 2021-06-04 10:16 | disposition home or self-care (01) ==
LOC: HO.SH 10:15
PROVIDERS: Visit Provider Family Medicine
DX: H93.293 Other abnormal auditory perceptions, bilateral (principal)
CPT/HCPCS: 92550; 92557; 92588

== ENCOUNTER 2021-06-22 07:25 | Outpatient (REF) | payer MEDICAID, SELFPAY ==
[2021-06-22 08:24] LABS: Hematocrit 32.5 % (37-47); Mean Corpuscular HGB Conc 30.8 g/dl (31.0-35.0); Mean Corpuscular Volume 74.9 fL (80-98); Mean Platelet Volume 11.2 fL (9.4-12.3); Platelet Count 259 X10*3/uL (160-400); Red Blood Count 4.34 X10*6/uL (4.20-5.50); Red Cell Distribution Width 15.9 % (11.0-16.0); White Blood Count 7.7 X10*3/uL (4.8-10.8)
[2021-06-22 08:44] LABS: Estimated Average Glucose 131 mg/dL; Hemoglobin A1c % 6.2 %
[2021-06-22 09:16] LABS: Creatinine Urine 91.72 mg/dL; Microalbumin Urine < 5.0 mg/L
[2021-06-22 09:23] LABS: Alanine Aminotransferase 17 U/L (0-31); Albumin Level 4.1 g/dL (3.5-5.0); Alkaline Phosphatase 62 U/L (39-117); Anion Gap 10 (12-20); Aspartate Amino Transferase 21 U/L (5-31); Bilirubin Total < 0.2 mg/dL (0.0-1.0); Blood Urea Nitrogen 15 mg/dL (9-16); Calcium 8.7 mg/dL (8.4-10.2); Carbon Dioxide 25 mmol/L (22-29); Chloride 106 mmol/L (96-108); Cholesterol 160 mg/dL; Estimated Glomerular Filt Rate > 60; Glucose Random 99 mg/dL (60-115); HDL Cholesterol 42 mg/dL; LDL Cholesterol Calculated 102 mg/dl; Potassium 4.4 mmol/L (3.3-5.1); Sodium 137 mmol/L (135-145); Total Protein 6.7 g/dL (6.5-8.0); Triglycerides 81 mg/dL
[2021-06-22 09:45] LABS: T4 Thyroxine 6.8 ug/dL (4.5-12.0); Thyroid Stimulating Hormone 1.65 uIU/mL (0.32-4.0)
[2021-06-22 11:34] LABS: CT PCR NOT DETECTED (Not Detect.); NG PCR NOT DETECTED (Not Detect.)
[2021-06-24 04:18] LABS: Syphilis Screen Nonreactive (Nonreactive)
[2021-06-24 04:19] LABS: ~HepC Num1 0.11 S/CO (0.00-0.79); ~Hepatitis C Antibody Nonreactive (Nonreactive)
[2021-06-24 04:41] LABS: HBS Num1 > 1000.00 mIU/mL (0-7.99); HBsAGNum1 0.27 S/CO (0.00-0.99); HIV AB/AG Nonreactive (Nonreactive); HIV Num 1 0.07 S/CO (0.00-0.99); Hepatitis B Surface Antigen Negative (Negative); ~Hepatitis B Surface Antibody REACTIVE (Nonreactive)
[2021-06-24 08:26] LABS: Triiodothyronine T3 Total 91 ng/dL (76-181)
== END 2021-06-22 07:26 | disposition home or self-care (01) ==
LOC: HO.LAB 07:25
PROVIDERS: PCP Family Medicine; Visit Provider Family Medicine
DX: E11.9 Type 2 diabetes mellitus without complications (principal)
CPT/HCPCS: 80053; 80061; 82043; 82306; 83036; 84436; 84443; 84480; 85027; 86706; 86780; 86803; 87340; 87389; 87491; 87591

== ENCOUNTER 2021-07-09 07:53 | Outpatient (REF) | payer MEDICAID, SELFPAY | END 2021-07-09 07:54 | disposition home or self-care (01) | LOC: HO.MDS 07:53 | PROVIDERS: Visit Provider Internal Medicine | DX: D50.9 Iron deficiency anemia, unspecified (principal) | CPT/HCPCS: 96365; 96366; J1200; J1750; Q0163 ==

== ENCOUNTER 2021-10-30 18:32 | Emergency (ER) | payer MEDICAID, SELFPAY ==
[2021-10-30 19:02] VITALS: BP 139/89; PULSE 80; RESP 18; TEMP 37.1; O2SAT 98; BMI 26.5
[2021-10-30 21:04] VITALS: BP 135/77; PULSE 66; RESP 16; TEMP 36.8; O2SAT 98
--- NOTE | 2021-10-30 21:07 | ED_ITS ---
HPI - Headache General Chief Complaint: Headache Stated Complaint: migrane/ ear ache Time Seen by Provider: 10/30/21 21:06 Source: patient Mode of arrival: ambulatory Limitations: no limitations History of Present Illness HPI Narrative: Patient is a 46 year old female presenting to the emergency department today with a migraine headache. Patient states that he has a history of migraine headaches and this headache feels the same. Patient states that she usually gets a migraine cocktail and feels much better. Patient denies any dizziness, lightheadedness, abdominal pain, vomiting, fever, chills, blurry vision, double vision, loss of vision, chest pain, difficulty breathing, shortness of breath, back pain, night sweats, pain with urination, increased urinary frequency, increased urinary urgency, blood in her urine or stool, syncope or a near syncopal episode, recent trauma or falls, bowel incontinence, bladder incontinence, bowel retention, bladder retention, or any other complaints at this time. MD elicited complaint: headache and migraine Pertinent past history: migraines Onset (ago): hour(s) Related Data Home Medications Medication Instructions Recorded Confirmed [id number]-qucyskcixgeci-[id number] 1 - 2 tab PO Q4H PRN 07/02/21 09/03/21 50 mg-325 mg-40 mg tablet dulaglutide 1.5 mg/0.5 mL 1.5 mg SUBCUT QWEEK 07/02/21 09/03/21 subcutaneous pen injector (Trulicity) loratadine 10 mg tablet 1 tab PO DAILY 07/02/21 09/03/21 metformin 500 mg tablet 1 tab PO BID 07/02/21 09/03/21 omeprazole 20 mg capsule,delayed 1 cap PO DAILY 07/02/21 09/03/21 release tramadol 50 mg tablet 1 tab PO Q8H PRN 07/02/21 09/03/21 Previous Rx's Medication Instructions Recorded loperamide 2 mg capsule 2 mg PO Q6H PRN #10 cap 10/07/20 (Anti-Diarrheal (loperamide)) Allergies Allergy/AdvReac Type Severity Reaction Status Date / Time Penicillins [PENICILLINS] Allergy Unknown RASH Verified 10/30/21 19:02 sumatriptan [SUMATRIPTAN] Allergy Unknown DIFF Verified 10/30/21 19:02 BREATHING Bunnys Allergy Unknown Rash/red Uncoded 10/30/21 19:02 eyes Cats Allergy Unknown Rash/red Uncoded 10/30/21 19:02 eye Dogs Allergy Unknown Rash/red Uncoded 10/30/21 19:02 eyes Review of Systems Constitutional: Constitutional: Reports no additional constitutional complaints, Denies chills, Denies fever(s) and Denies night sweats Eyes: Eyes: Reports no additional eye complaints, Denies blurry vision, Denies change in vision, Denies diplopia, Denies eye discharge, Denies loss of vision and Denies eye pain ENT: Denies dizziness Cardiovascular: Cardiovascular: Reports no additional cardiovascular complaints, Denies chest pain, Denies lightheadedness, Denies Loss of Consciousness and Denies dyspnea Respiratory: Respiratory: Reports no additional respiratory complaints and Denies dyspnea Gastrointestinal: Gastrointestinal: Reports no additional gastrointestinal complaints, Denies abdominal pain, Denies melena, Denies hematochezia, Denies change in bowel habits and Denies change in stool character Genitourinary: Genitourinary: Denies hematuria, Denies urinary frequency, Denies dysuria, Denies urinary incontinence, Denies urinary hesitancy and Denies urinary urgency Musculoskeletal: Musculoskeletal: Reports no additional musculoskeletal complaints, Denies numbness and Denies tingling Neurologic: Denies dizziness, Denies loss of vision, Denies numbness and Denies tingling Psychiatric: Psychiatric: Reports no additional psychiatric complaints Endocrine: Endocrine: Reports no additional endocrine complaints Hematologic/Lymphatic: Hematologic/Lymphatic: Reports no additional hematologic/lymphatic complaints Allergic/Immunologic: Allergic/Immunologic: Reports no additional allergic/immunologic complaints [facility] Past Medical History Attestation statement: The following information was validated with the patient. Medical History Diabetes DVT (deep venous thrombosis) GERD (gastroesophageal reflux disease) Iron deficiency Migraine Surgical History Hx of section Hx of tubal ligation Family History Family History Paternal Grandfather Cancer Paternal Uncle Stomach cancer Father Diabetes Heart attack Mother Diabetes Heart attack Social History Social History Alcohol intake: current Alcohol intake frequency: holidays/special occasions only Patient Tobacco Use Status: Former Tobacco user Quit Date: 2018 Tobacco use type: Cigarette Advance Directives: No Advance Directives Information Provided: No Patient : No Physical Exam Vital Signs: Vital Signs: Last Vital Signs Temp 98.2 F 10/30/21 21:04 Pulse 66 10/30/21 21:04 Resp 16 10/30/21 21:04 BP 135/77 10/30/21 21:04 Pulse Ox 98 10/30/21 21:04 BMI result Body Mass Index 26.5 Const: General: cooperative, no acute distress, alert and awake Nutritional Appearance: well nourished Orientation/consciousness: patient oriented x3 Limitations: no limitations HENMT: Head: Yes normal to inspection and Yes atraumatic Ears: hearing grossly normal bilaterally and external ears normal General nose exam: Normal external nose present, no nasal discharge noted and no epistaxis Face and sinus: Yes normal facial exam, No abrasion and No laceration Mouth: Normal oral and palatal mucosa present, no drooling and no muffled voice Eyes: General: appearance normal, both eyes and all related structures Periorbital: periorbital findings normal Eyelids: Yes eyelids normal Conjunctivae: conjunctivae normal Pupils: Equal, round and reactive pupils present EOM: EOMs intact bilaterally Neck: Neck: Yes normal visual inspection, Yes full ROM and Yes no lymphadenopathy Chest: Chest palpation & inspection: normal inspection of the chest Resp: Effort & Inspection: normal respiratory effort and able to speak in complete sentences Auscultation: clear to auscultation bilaterally Cardio: Rate: regular rate Rhythm: regular rhythm GI: Inspection: Yes normal to inspection Neuro: General: patient oriented x3 and moves all extremities Cranial nerves: Yes Equal, round and reactive pupils present Cognition (Neuro): normal cognition Motor exam (neuro): 5/5 motor strength present throughout Sensory Exam: Normal double simultaneous stimulation for sensation Coordination: urtbdh-qk-jyrg test normal Extrem: General: Yes normal to inspection, Yes full ROM and Yes capillary refill normal Psych: Appearance: grossly normal Mental Status: mental status grossly normal Affect: normal affect Attitude: cooperative Thought process: Normal thought process present Thought content: Normal thought content present Insight: Good insight present (Psych) MDM - Headache MDM Narrative Medical decision making narrative: Patient is a 46 year old female presenting to the emergency department today with a migraine headache. Patient's physical exam was unremarkable. I explained my physical exam findings to the patient. I answered all questions asked by the patient. Patient received ODT Zofran, PO Benadryl, and IM toradol which she stated helped her symptoms significantly. I stressed the importance of the patient taking her medication as prescribed. I stressed the importance of the patient following up with her primary care provider. I stressed the importance of the patient returning to the emergency department immediately if her symptoms were to worsen or if she were to develop any dizziness, shortness of breath, difficulty breathing, chest pain, blurry vision, loss of vision, nausea, vomiting, abdominal pain, fever, chills, back pain, or any other complaints. Patient verbalized agreement and understanding with this treatment plan and discharge. Differential Diagnosis Differential diagnosis: Likely migraine Medical Records Attestation: I reviewed the patient's medical records. Discharge Plan Discharge Clinical Impression: Migraine Patient Disposition: Home, Self-Care Instructions: Migraine Headache (ED) Additional Instructions: Follow up with your primary care provider. Return to the emergency department immediately if your symptoms worsen or if you develop any dizziness, shortness of breath, difficulty breathing, chest pain, blurry vision, loss of vision, nausea, vomiting, abdominal pain, fever, chills, back pain, or any other complaints. Prescriptions: No Action loperamide [Anti-Diarrheal (loperamide)] 2 mg capsule 2 mg PO Q6H PRN (Reason: loose stool) Qty: 10 0RF metformin 500 mg tablet 1 tab PO BID 0RF tramadol 50 mg tablet 1 tab PO Q8H PRN (Reason: Pain) 0RF isqmmlauyt-saacxylfiftug-eagk 50-325-40 mg tablet 1 - 2 tab PO Q4H PRN (Reason: migraine) 0RF omeprazole 20 mg capsule,delayed release(DR/EC) 1 cap PO DAILY 0RF loratadine 10 mg tablet 1 tab PO DAILY 0RF Trulicity 1.5 mg/0.5 mL pen injector 1.5 mg subcut QWEEK 0RF Referrals: Randi Chávez MD [Primary Care Provider] - 2 days Print Language: Mauritanian
[2021-10-30] MEDS: diphenhydrAMINE HCL 25 MG TABLET 50 MG PO (21:33)
[2021-10-30] MEDS: Ondansetron ODT 4 MG TAB.RAPDIS TRANSLINGU (21:33)
[2021-10-30] MEDS: Ketorolac Tromethamine 30 MG/ML VIAL IM (21:33)
[2021-10-30 23:42] VITALS: BP 124/76; PULSE 72; RESP 16; O2SAT 99
== END 2021-10-30 23:50 | disposition home or self-care (01) ==
PROVIDERS: Emergency Provider Emergency Medicine Emergency Medical Services; PCP Family Medicine
DX: G43.909 Migraine, unspecified, not intractable, without status migrainosus (principal); E11.9 Type 2 diabetes mellitus without complications; Z86.718 Personal history of other venous thrombosis and embolism
CPT/HCPCS: 96372; 99284; J1885; Q0163

== ENCOUNTER 2021-11-12 14:30 | Outpatient (REF) | payer MEDICAID, SELFPAY ==
--- NOTE | ~2021-11-12 | MM_ITS ---
EXAMINATION: MM SCREENING DIGITAL BREAST TOMOSYNTHESIS, BILATERAL CLINICAL INFORMATION: Screening. Asymptomatic. The lifetime risk of breast cancer based on the Tyrer-Cuzick Model is 9%. COMPARISON: Mammography: 10/17/2020, 10/12/2019, 10/30/2017 (baseline) TECHNIQUE: Digital breast tomosynthesis is performed in both the craniocaudal and mediolateral oblique views along with computer-aided detection (CAD). Synthesized 2D images are generated from the tomosynthesis. FINDINGS: There are scattered areas of fibroglandular density (ACR BI-RADS breast composition Category b). There are no significant masses, abnormal calcifications, or other abnormalities. Parenchymal pattern is similar to prior studies. There are no significant changes. MM/MM tomosynthesis screening BI IMPRESSION: No mammographic evidence of malignancy. ASSESSMENT: BI-RADS 1: Negative RECOMMENDATION: Routine annual mammography screening. This patient's information was entered into a reminder system with a target due date for their next mammogram.
== END 2021-11-12 14:31 | disposition home or self-care (01) ==
LOC: HO.MAMMO 14:30
PROVIDERS: PCP Family Medicine; Visit Provider Family Medicine
DX: Z12.31 Encounter for screening mammogram for malignant neoplasm of breast (principal)
CPT/HCPCS: 77063; 77067

== ENCOUNTER 2021-11-13 17:09 | Emergency (ER) | payer MEDICAID, SELFPAY ==
--- NOTE | ~2021-11-13 | US_ITS ---
EXAMINATION: PELVIC ULTRASOUND CLINICAL INFORMATION: Left adnexal tenderness COMPARISON: CT abdomen and pelvis 02/07/2021 TECHNIQUE: Both transabdominal and endovaginal imaging was performed. Color-flow Doppler imaging was utilized. FINDINGS: An anteverted anteflexed uterus is present measuring 8.9 x 4.2 x 6.6 cm which appears normal. Endometrium measures 1.7 cm in thickness. The right ovary measures 2.5 x 1.4 x 1.8 cm for volume of 3.3 mL and appears normal. The left ovary measures 6.4 x 4.3 x 5.8 cm for a volume of 87.4 mL and contains a complex cystic structure measuring 3.8 x 4.7 x 2.2 cm. In addition, there is a tubular structure/versus free fluid seen in the left adnexa measuring 4.0 x 1.8 x 1.9 cm. A similar tubular structure could be seen on the prior CT (3:74). Flow in both ovaries is symmetric. No free fluid is present in the cul-de-sac. US/US pelvic ovarian doppler IMPRESSION: Complex left ovarian cyst with tubular structure next to it. Similar appearances were present at the time of the prior CT scan. If the patient is tender, this could conceivably represent a tubo-ovarian abscess, although, if this was the case, I probably would have expected significantly increased flow on Doppler imaging.
[2021-11-13 17:26] VITALS: BP 131/81; PULSE 90; RESP 18; TEMP 37.3; O2SAT 99; BMI 26.6
[2021-11-13 17:51] LABS: Appearance Urine CLEAR; Color Urine YELLOW; Glucose Urine UA NEG (NEG); Leukocyte Esterase Urine NEG (NEG); Nitrite Urine NEG (NEG); Specific Gravity - Urine >= 1.030 (1.005-1.025); UACC Culture Trigger NO; Urine Blood TRACE (NEG); Urine Ketones 5 MG/DL (NEG); Urine Protein TRACE MG/DL (NEG-TRACE)
[2021-11-13 17:54] LABS: UPreg QC Valid YES; Urine Pregnancy NEGATIVE (NEGATIVE)
[2021-11-13 17:58] LABS: RBC Urine 0-2 /HPF (0); Squamous Epithelial Cell Urine 1+ /LPF; WBC Urine 0 /HPF (0-4)
--- NOTE | 2021-11-13 18:27 | ED.ABDPAIN ---
HPI - Abdominal Pain General Chief Complaint: Abdominal Pain Stated Complaint: abd pain/lower back/barragan when urinanting Source: patient Mode of arrival: ambulatory Limitations: no limitations History of Present Illness HPI narrative: 46-year-old female presents with left-sided flank pain and painful urination for 5 days. Does not report any fevers, chills, nausea, vomiting, diarrhea, constipation, or any other concerning symptoms. Has a history of ovarian cysts. Does not report any abnormal vaginal discharge or bleeding. MD elicited complaint: abdominal pain and flank pain Onset (ago): day(s) (5) Pain Consistency: constant and colicky Location: LLQ and L flank Severity: moderate Pain scale (0-10): 6 Quality: cramping and aching Radiation: LLQ Migration to: no migration Exacerbating factors: eating and movement Relieving factors: rest Associated symptoms: other (Dysuria) Treatments prior to arrival: NSAIDs Related Data Patient : No Home Medications Medication Instructions Recorded Confirmed kostczopmx-tdaqtmqdhjbhd-sjaitdxd 1 - 2 tab PO Q4H PRN 07/02/21 09/03/21 50 mg-325 mg-40 mg tablet dulaglutide 1.5 mg/0.5 mL 1.5 mg SUBCUT QWEEK 07/02/21 09/03/21 subcutaneous pen injector (Trulicity) loratadine 10 mg tablet 1 tab PO DAILY 07/02/21 09/03/21 metformin 500 mg tablet 1 tab PO BID 07/02/21 09/03/21 omeprazole 20 mg capsule,delayed 1 cap PO DAILY 07/02/21 09/03/21 release tramadol 50 mg tablet 1 tab PO Q8H PRN 07/02/21 09/03/21 Previous Rx's Medication Instructions Recorded loperamide 2 mg capsule 2 mg PO Q6H PRN #10 cap 10/07/20 (Anti-Diarrheal (loperamide)) ibuprofen 600 mg tablet 600 mg PO Q6H PRN #60 tab 11/13/21 Allergies Allergy/AdvReac Type Severity Reaction Status Date / Time Penicillins [PENICILLINS] Allergy Unknown RASH Verified 10/30/21 19:02 sumatriptan [SUMATRIPTAN] Allergy Unknown DIFF Verified 10/30/21 19:02 BREATHING Bunnys Allergy Unknown Rash/red Uncoded 10/30/21 19:02 eyes Cats Allergy Unknown Rash/red Uncoded 10/30/21 19:02 eye Dogs Allergy Unknown Rash/red Uncoded 10/30/21 19:02 eyes Review of Systems Review of Systems Constitutional: No Weight loss, No Fever, No Chills, No Night Sweats, No Fatigue, No Malaise ENT/Mouth: No Hearing loss, No Ear Pain, No Nasal Congestion, No Sinus Pain, No Hoarseness, No sore throat, No Rhinorrhea, No Swallowing Difficulty Eyes: No Eye Pain, No Swelling, No Redness, No Foreign Body, No Discharge, No Vision Changes Cardiovascular: No Chest Pain, No SOB, No Dyspnea on Exertion, No Orthopnea, No Edema, No Palpitations Respiratory: No Cough, No Sputum, No Wheezing, No Smoke Exposure, No Dyspnea Gastrointestinal: No Nausea, no Vomiting, no Diarrhea, positive abdominal Pain, No Hematochezia, No Melena Genitourinary: no irregular bleeding, positive Dysuria, No Urinary Frequency, No Hematuria, No Urinary Incontinence, No Urgency, positive Flank Pain, No Urinary Flow Changes, No Hesitancy Musculoskeletal: No joint pain, No Myalgias, No Joint Swelling Skin: No Skin Lesions, No rash Neuro: No Weakness, No Numbness, No Paresthesias, No Loss of Consciousness, No Dizziness, No Headache Psych: No Anxiety/Panic, No Depression, No SI/HI/AH/VH, No Social Issues Heme/Lymph: No Bruising, No Bleeding,No Lymphadenopathy Endocrine: No Polyuria, No Polydipsia, No Temperature Intolerance Yes all other systems are reviewed and are negative [facility] Past Medical History Attestation statement: The following information was validated with the patient. Source: old records reviewed Medical History Diabetes DVT (deep venous thrombosis) GERD (gastroesophageal reflux disease) Iron deficiency Migraine Surgical History Hx of section Hx of tubal ligation Family History Family History Paternal Grandfather Cancer Paternal Uncle Stomach cancer Father Diabetes Heart attack Mother Diabetes Heart attack Social History Social History Alcohol intake: current Alcohol intake frequency: holidays/special occasions only Patient Tobacco Use Status: Former Tobacco user Quit Date: 2018 Tobacco use type: Cigarette Advance Directives: No Advance Directives Information Provided: No Physical Exam ED Vital Signs: Vital Signs - 24 hr 11/13/21 17:26 11/13/21 19:50 11/13/21 19:58 Temperature 99.1 F 98.8 F 98.8 F Pulse Rate 90 72 62 Respiratory Rate 18 20 16 Blood Pressure 131/81 136/80 130/84 Pulse Oximetry 99 97 99 BMI result Body Mass Index 26.6 Appearance: Alert. Oriented X3. Mild distress. Eyes: Pupils equal, round and reactive to light. EOMI. Sclerae nonicteric. ENT: Pharynx normal. Moist mucous membranes. Neck: Normal inspection. Neck supple. CVS: Normal heart rate and rhythm. Pulses normal. Respiratory: No respiratory distress. Breath sounds normal. Abdomen: Soft and left lower tenderness. Left adnexal tenderness. No CVA tenderness. Skin: Skin warm and dry. Normal skin color. Normal skin turgor. Extremities: No lower extremity edema. Gait well-balanced well coordinated. Neuro: No motor deficit. No sensory deficit. Cranial nerves 2-12 intact. Course Course Course Narrative: 46-year-old female presents with left lower quadrant and flank pain with dysuria for approximately 5 days. Does have a known history of ovarian cysts. Patient denies fevers, chills, nausea, vomiting, and any other concerning symptoms. Patient is afebrile and nontoxic appearing. Physical exam is negative for CVA tenderness, urinalysis negative for heme. Will order pelvic ultrasound secondary to adnexal tenderness on the left side and history of ovarian cyst. Will give L of fluid at this time. Ovarian Doppler negative for acute findings requiring emergent intervention. Does show left ovarian complex cyst with tubular structure, no significant change when compared to abdominal ultrasound on 02/07/2021. I do not feel that further imaging is warranted at this time as patient does not have a significant white count, and urinalysis is negative. Low likelihood to be kidney stone or pyelo secondary to negative urinalysis and negative CVA tenderness. Patient will follow-up with primary care physician. I did refer her to Dr. Hayes for laser beam cutter follow-up. Patient verbalized understanding of and agrees to plan of care to discharge home. Verbalized understanding of signs and symptoms indicating need for emergent intervention MDM - Abdominal Pain Differential Diagnosis Differential diagnosis: Likely abdominal pain, calculus of kidney, diverticulitis and ovarian cyst Medical Records Attestation: I reviewed the patient's medical records. Lab Data Attestation: I reviewed the patient's lab results. Result diagrams: 11/13/21 19:46 11/13/21 19:46 Labs: Lab Results 11/13/21 11/13/21 11/13/21 Range/Units 17:40 17:40 19:46 WBC 8.9 (4.8-10.8) X10*3/uL RBC 4.24 (4.20-5.50) X10*6/uL Hgb 11.9 L (12.0-16.0) g/dl Hct 36.3 L (37.0-47.0) % MCV 85.6 (80.0-98.0) fL MCH 28.1 (27.0-33.0) pg MCHC 32.8 (31.0-35.0) g/dl RDW 12.6 (11.0-16.0) % Plt Count 188 D (160-400) X10*3/uL MPV 10.8 (9.4-12.3) fL Immature Gran % (Auto) 0.2 (0.0-0.4) % Neut % (Auto) 50.0 (45-73) % Lymph % (Auto) 40.5 H (20-40) % Beckham % (Auto) 7.4 (2-11) % Eos % (Auto) 1.5 (0-4) % Baso % (Auto) 0.4 (0-2) % Lymph # (Auto) 3.6 (1.2-4.9) X10*3/uL Beckham # (Auto) 0.7 (0.1-1.2) X10*3/uL Eos # (Auto) 0.1 (0.0-0.4) X10*3/uL Baso # (Auto) 0.0 (0.0-0.2) X10*3/uL Abs Immat Gran (auto) 0.02 (0.00-0.03) X10*3/uL Absolute Neuts (auto) 4.4 (2.0-8.3) x10*3/uL Absolute Nucleated RBC 0.000 (0.0-0.012) X10*3/uL Nucleated RBC % (auto) 0.0 (0.0-0.2) /100WBC Sodium (135-145) mmol/L Potassium (3.3-5.1) mmol/L Chloride (96-108) mmol/L Carbon Dioxide (22-29) mmol/L Anion Gap (12-20) BUN (9-16) mg/dL Creatinine (0.5-1.4) mg/dL Estim Creat Clear Calc Estimated GFR Random Glucose (60-115) mg/dL Calcium (8.4-10.2) mg/dL Total Bilirubin (0.0-1.0) mg/dL Direct Bilirubin (0.0-0.5) mg/dL AST (5-31) U/L ALT (0-31) U/L Alkaline Phosphatase (39-117) U/L Total Protein (6.5-8.0) g/dL Albumin (3.5-5.0) g/dL Lipase (8-78) U/L Urine Color YELLOW Urine Appearance CLEAR Urine pH 6.0 (5.0-8.0) Ur Specific [place] >= 1.030 H (1.005-1.025) Urine Protein TRACE (NEG-TRACE) MG/DL Urine Glucose (UA) NEG (NEG) MG/DL Urine Ketones 5 (NEG) MG/DL Urine Blood TRACE (NEG) Urine Nitrite NEG (NEG) Ur Leukocyte Esterase NEG (NEG) Urine RBC 0-2 (0) /HPF Urine WBC 0 (0-4) /HPF Ur Squamous Epith Cells 1+ /LPF Urine Bacteria NONE /LPF Urine Test NEGATIVE (NEGATIVE) 11/13/21 Range/Units 19:46 WBC (4.8-10.8) X10*3/uL RBC (4.20-5.50) X10*6/uL Hgb (12.0-16.0) g/dl Hct (37.0-47.0) % MCV (80.0-98.0) fL MCH (27.0-33.0) pg MCHC (31.0-35.0) g/dl RDW (11.0-16.0) % Plt Count (160-400) X10*3/uL MPV (9.4-12.3) fL Immature Gran % (Auto) (0.0-0.4) % Neut % (Auto) (45-73) % Lymph % (Auto) (20-40) % Beckham % (Auto) (2-11) % Eos % (Auto) (0-4) % Baso % (Auto) (0-2) % Lymph # (Auto) (1.2-4.9) X10*3/uL [place]ham # (Auto) (0.1-1.2) X10*3/uL Eos # (Auto) (0.0-0.4) X10*3/uL Baso # (Auto) (0.0-0.2) X10*3/uL Abs Immat Gran (auto) (0.00-0.03) X10*3/uL Absolute Neuts (auto) (2.0-8.3) x10*3/uL Absolute Nucleated RBC (0.0-0.012) X10*3/uL Nucleated RBC % (auto) (0.0-0.2) /100WBC Sodium 137 (135-145) mmol/L Potassium 4.0 (3.3-5.1) mmol/L Chloride 106 (96-108) mmol/L Carbon Dioxide 24 (22-29) mmol/L Anion Gap 11 L (12-20) BUN 20 H (9-16) mg/dL Creatinine 0.73 (0.5-1.4) mg/dL Estim Creat Clear Calc 85.9 Estimated GFR > 60 Random Glucose 108 (60-115) mg/dL Calcium 9.0 (8.4-10.2) mg/dL Total Bilirubin 0.3 (0.0-1.0) mg/dL Direct Bilirubin < 0.2 (0.0-0.5) mg/dL AST 18 (5-31) U/L ALT 11 (0-31) U/L Alkaline Phosphatase 58 (39-117) U/L Total Protein 6.3 L (6.5-8.0) g/dL Albumin 3.9 (3.5-5.0) g/dL Lipase 68 (8-78) U/L Urine Color Urine Appearance Urine pH (5.0-8.0) Ur Specific [place] (1.005-1.025) Urine Protein (NEG-TRACE) MG/DL Urine Glucose (UA) (NEG) MG/DL Urine Ketones (NEG) MG/DL Urine Blood (NEG) Urine Nitrite (NEG) Ur Leukocyte Esterase (NEG) Urine RBC (0) /HPF Urine WBC (0-4) /HPF Ur Squamous Epith Cells /LPF Urine Bacteria /LPF Urine Test (NEGATIVE) Imaging Data Ovarian Doppler: Attestation: I personally reviewed and interpreted this imaging study as follows: Radiologist's impression: EXAMINATION: PELVIC ULTRASOUND CLINICAL INFORMATION: Left adnexal tenderness? COMPARISON: CT abdomen and pelvis 02/07/2021? TECHNIQUE: Both transabdominal and endovaginal imaging was performed. Color-flow Doppler imaging was utilized.? FINDINGS: An anteverted anteflexed uterus is present measuring 8.9 x 4.2 x 6.6 cm which appears normal. Endometrium measures 1.7 cm in thickness. The right ovary measures 2.5 x 1.4 x 1.8 cm for volume of 3.3 mL and appears normal. The left ovary measures 6.4 x 4.3 x 5.8 cm for a volume of 87.4 mL and contains a complex cystic structure measuring 3.8 x 4.7 x 2.2 cm. In addition, there is a tubular structure/versus free fluid seen in the left adnexa measuring 4.0 x 1.8 x 1.9 cm. A similar tubular structure could be seen on the prior CT (3:74). Flow in both ovaries is symmetric. No free fluid is present in the cul-de-sac. US/US pelvic ovarian doppler IMPRESSION: Complex left ovarian cyst with tubular structure next to it. Similar appearances were present at the time of the prior CT scan. If the patient is tender, this could conceivably represent a tubo-ovarian abscess, although, if this was the case, I probably would have expected significantly increased flow on Doppler imaging.? Discharge Plan Discharge Clinical Impression: Complex cyst of left ovary Patient Disposition: Home, Self-Care Instructions: Ovarian Cyst (ED) Additional Instructions: You were evaluated for left lower abdominal pain. Pelvic ultrasound indicates a left ovarian cyst with a tubular structure. Please follow-up with laser beam cutter for further evaluation. I referred her to Dr. Machado. Please call and request an appointment. Use Motrin 600 mg every 6 hours as needed for pain management. Drink plenty of fluids. Thank you for choosing this emergency department for evaluation. Please follow-up with primary care physician as needed. Return to the emergency department for any new, concerning, or worsening symptoms. Prescriptions: New ibuprofen 600 mg tablet 600 mg PO Q6H PRN (Reason: fever or pain) Qty: 60 0RF No Action loperamide [Anti-Diarrheal (loperamide)] 2 mg capsule 2 mg PO Q6H PRN (Reason: loose stool) Qty: 10 0RF metformin 500 mg tablet 1 tab PO BID 0RF tramadol 50 mg tablet 1 tab PO Q8H PRN (Reason: Pain) 0RF cvlbarhljo-lkkiogpvzlkqs-zhmj 50-325-40 mg tablet 1 - 2 tab PO Q4H PRN (Reason: migraine) 0RF omeprazole 20 mg capsule,delayed release(DR/EC) 1 cap PO DAILY 0RF loratadine 10 mg tablet 1 tab PO DAILY 0RF Trulicity 1.5 mg/0.5 mL pen injector 1.5 mg subcut QWEEK 0RF Referrals: Samuel Machado MD [Physician] - 2 days (Complex left ovarian cyst)
[2021-11-13 19:50] VITALS: BP 136/80; PULSE 72; RESP 20; TEMP 37.1; O2SAT 97
[2021-11-13 19:57] LABS: MANUAL DIFF FLAG NO
[2021-11-13 19:58] VITALS: BP 130/84; PULSE 62; RESP 16; TEMP 37.1; O2SAT 99
[2021-11-13 19:58] LABS: Basophils Percent Auto 0.4 % (0-2); Eosinophils Absolute Auto 0.1 X10*3/uL (0.0-0.4); Eosinophils Percent Auto 1.5 % (0-4); Hematocrit 36.3 % (37.0-47.0); Hemoglobin 11.9 g/dl (12.0-16.0); Imm Gran Abs Auto 0.02 X10*3/uL (0.00-0.03); Imm Gran Pct Auto 0.2 % (0.0-0.4); Lymphocytes Absolute Auto 3.6 X10*3/uL (1.2-4.9); Lymphocytes Percent Auto 40.5 % (20-40); Mean Corpuscular HGB Conc 32.8 g/dl (31.0-35.0); Mean Corpuscular Hemoglobin 28.1 pg (27.0-33.0); Mean Corpuscular Volume 85.6 fL (80.0-98.0); Mean Platelet Volume 10.8 fL (9.4-12.3); Monocytes Absolute Auto 0.7 X10*3/uL (0.1-1.2); Monocytes Percent Auto 7.4 % (2-11); Neutrophils Absolute Auto 4.4 x10*3/uL (2.0-8.3); Platelet Count 188 X10*3/uL (160-400); Red Blood Count 4.24 X10*6/uL (4.20-5.50); Red Cell Distribution Width 12.6 % (11.0-16.0); White Blood Count 8.9 X10*3/uL (4.8-10.8)
[2021-11-13 20:16] LABS: Alanine Aminotransferase 11 U/L (0-31); Albumin Level 3.9 g/dL (3.5-5.0); Alkaline Phosphatase 58 U/L (39-117); Anion Gap 11 (12-20); Aspartate Amino Transferase 18 U/L (5-31); Bilirubin Direct < 0.2 mg/dL (0.0-0.5); Bilirubin Total 0.3 mg/dL (0.0-1.0); Blood Urea Nitrogen 20 mg/dL (9-16); Carbon Dioxide 24 mmol/L (22-29); Chloride 106 mmol/L (96-108); Creatinine Clr Calc Pharmacy 85.9; Estimated Glomerular Filt Rate > 60; Glucose Random 108 mg/dL (60-115); Lipase 68 U/L (8-78); Sodium 137 mmol/L (135-145); Total Protein 6.3 g/dL (6.5-8.0)
[2021-11-13] MEDS: 0.9 % Sodium Chloride 1,000 ML 999 ML IVCONT (20:22)
[2021-11-13 21:39] VITALS: BP 139/80; PULSE 67; RESP 17; O2SAT 97
== END 2021-11-13 21:40 | disposition home or self-care (01) ==
PROVIDERS: Nurse Practitioner Family; Emergency Provider Emergency Medicine Emergency Medical Services; PCP Family Medicine
DX: N83.202 Unspecified ovarian cyst, left side (principal); R10.32 Left lower quadrant pain; R30.0 Dysuria; Z79.899 Other long term (current) drug therapy
CPT/HCPCS: 36415; 80048; 80076; 81001; 81025; 83690; 85025; 93975; 96360; 99283; 99284

== ENCOUNTER 2022-03-31 12:17 | Outpatient (REF) | payer MEDICAID, SELFPAY | END 2022-03-31 12:18 | disposition home or self-care (01) | LOC: HO.MDS 12:17 | PROVIDERS: Visit Provider Internal Medicine | DX: D50.9 Iron deficiency anemia, unspecified (principal) | CPT/HCPCS: 96365; J1756 ==

== ENCOUNTER 2022-04-07 11:10 | Outpatient (REF) | payer MEDICAID, SELFPAY | END 2022-04-07 11:11 | disposition home or self-care (01) | LOC: HO.MDS 11:10 | PROVIDERS: Visit Provider Internal Medicine | DX: D50.9 Iron deficiency anemia, unspecified (principal) | CPT/HCPCS: 96365; J1756 ==

== ENCOUNTER 2022-04-15 12:29 | Outpatient (REF) | payer MEDICAID, SELFPAY | END 2022-04-15 12:30 | disposition home or self-care (01) | LOC: HO.MDS 12:29 | PROVIDERS: Visit Provider Internal Medicine | DX: D50.9 Iron deficiency anemia, unspecified (principal) | CPT/HCPCS: 96365; J1756 ==

== ENCOUNTER 2022-05-18 16:36 | Emergency (ER) | payer MEDICAID, SELFPAY ==
[2022-05-18 18:48] VITALS: BP 116/74; PULSE 79; RESP 16; TEMP 36.1; O2SAT 96; BMI 23.8
[2022-05-18 19:39] LABS: Appearance Urine Clear; Color Urine Yellow; Glucose Urine UA Negative (Negative); Leukocyte Esterase Urine Small (1+) (Negative); Nitrite Urine Negative (Negative); Specific Gravity - Urine 1.025 (1.005-1.025); Urine Blood Negative (Negative); Urine Ketones Negative (Negative); Urine Protein Negative (Neg-Trace)
[2022-05-18 19:44] LABS: Bacteria Urine None Seen (None Seen); Hyaline Casts Urine 0-2 /LPF (0-2); RBC Urine 0-2 /HPF (0-2); Squamous Epithelial Cell Urine 0-2 /HPF (0-2); UACC CULT YES; UACC Culture Trigger YES
== END 2022-05-18 23:23 | disposition left against medical advice (07) ==
PROVIDERS: Emergency Provider Emergency Medicine; PCP Family Medicine
DX: R10.13 Epigastric pain (principal); M54.50 Low back pain, unspecified; Z79.899 Other long term (current) drug therapy
CPT/HCPCS: 81001; 87086; 99282

== ENCOUNTER 2022-05-19 07:36 | Emergency (ER) | payer MEDICAID, SELFPAY ==
--- NOTE | ~2022-05-19 | CT_ITS ---
EXAMINATION: CT ABDOMEN AND PELVIS WITH CONTRAST CLINICAL INFORMATION: Abdominal pain postop COMPARISON: Pelvic ultrasound 11/13/[address] abdomen pelvis 02/07/2021 TECHNIQUE: Multidetector volumetric images were obtained from the superior aspect of the liver through the pubic symphysis following administration 85 mL of Omnipaque 350 intravenous contrast. Sagittal and coronal reformatted images were obtained on the technologist's workstation. This CT examination was performed using dose optimization techniques as appropriate, variously including the following: *Automated exposure control *Adjustment of mA and/or kV according to patient size (this includes techniques or standardized protocols for targeted exams where dose is matched to indication/reason for exam; i.e. extremities or head) *Use of iterative reconstruction technique DLP: 436 mGy-cm FINDINGS: LUNG BASES: Visualized lung bases demonstrate minimal dependent atelectasis. The liver demonstrates normal size, contour and attenuation. The gallbladder is normal in appearance. The pancreas, spleen and adrenal glands are unremarkable. Symmetrically enhancing kidneys. No hydronephrosis bilaterally. Normal caliber loops of small and large bowel. Unremarkable anastomotic suture line within the proximal sigmoid colon. There is a mild colonic stool burden. Normal appendix. Normal caliber abdominal aorta. No retroperitoneal lymphadenopathy. The bladder is normal in appearance. Unremarkable CT appearance of the uterus. 2.1 cm right adnexal cyst. Previously visualized left ovarian cyst not clearly identified on today's imaging. There is no gross free pelvic fluid. No inguinal lymphadenopathy. Mild degenerative changes of the spine. CT/CT abdomen pelvis w IV con IMPRESSION: No CT evidence for acute abnormality within the abdomen or pelvis. Fleischner guidelines were followed.
[2022-05-19 07:53] VITALS: BP 134/86; PULSE 67; RESP 16; TEMP 36.6; O2SAT 98; BMI 23.8
--- NOTE | 2022-05-19 08:16 | ED.GENADULT ---
HPI - General Adult General Chief complaint: Abdominal Pain Stated complaint: abd pain Time Seen by Provider: 05/19/22 08:16 Source: patient Mode of arrival: ambulatory Limitations: no limitations History of Present Illness HPI narrative: Patient is a 46 year old female presenting to the emergency department today with abdominal pain. Patient states that she has had this abdominal pain since last Thursday and she attempted to be evaluated last night but left after waiting too long. Patient states that she had a surgery in February for an ovarian issue and while the procedure was being done, she got a bowel laceration. Patient states that everything from that has been healed. Patient denies any dizziness, lightheadedness, nausea, vomiting, fever, chills, blurry vision, double vision, loss of vision, chest pain, difficulty breathing, shortness of breath, back pain, night sweats, pain with urination, increased urinary frequency, increased urinary urgency, blood in her urine or stool, syncope or a near syncopal episode, recent trauma or falls, bowel incontinence, bladder incontinence, bowel retention, bladder retention, or any other complaints at this time. Onset (ago): day(s) (2) Location: abdomen Radiation: non-radiation Severity: mild Severity scale (1-10): 2 Quality: dull Pain Consistency: constant Relieving factors: none Exacerbating factors: none Associated symptoms: denies other symptoms Treatments prior to arrival: none Related Data Home Medications Medication Instructions Recorded Confirmed uvwmcukyqn-ivhdztidpsagp-lfypvrsc 1 - 2 tab PO Q4H PRN migraine 07/02/21 09/03/21 50 mg-325 mg-40 mg tablet dulaglutide 1.5 mg/0.5 mL 1.5 mg subcut QWEEK 07/02/21 09/03/21 subcutaneous pen injector (Trulicity) loratadine 10 mg tablet 1 tab PO DAILY 07/02/21 09/03/21 metformin 500 mg tablet 1 tab PO BID 07/02/21 09/03/21 omeprazole 20 mg capsule,delayed 1 cap PO DAILY 07/02/21 09/03/21 release tramadol 50 mg tablet 1 tab PO Q8H PRN Pain 07/02/21 09/03/21 amitriptyline 10 mg tablet 1 tab PO BEDTIME headache 03/12/22 03/12/22 Previous Rx's Medication Instructions Recorded ibuprofen 600 mg tablet 600 mg PO Q6H PRN fever or pain 11/13/21 #60 tabs fluconazole 150 mg tablet 150 mg PO Q3D 2 doses #2 tabs 05/19/22 (Diflucan) nitrofurantoin macrocrystal 100 mg 100 mg PO BID 7 days #14 caps 05/19/22 capsule Allergies Allergy/AdvReac Type Severity Reaction Status Date / Time Penicillins [PENICILLINS] Allergy Unknown RASH Verified 10/30/21 19:02 sumatriptan [SUMATRIPTAN] Allergy Unknown DIFF Verified 10/30/21 19:02 BREATHING grass pollen Allergy Difficulty Verified 03/12/22 15:28 Breathing mite-Dermatophagoides Allergy Difficulty Verified 03/12/22 15:28 farinae, stacey Breathing [dust mite - [place]] Bunnys Allergy Unknown Rash/red Uncoded 10/30/21 19:02 eyes Cats Allergy Unknown Rash/red Uncoded 10/30/21 19:02 eye Dogs Allergy Unknown Rash/red Uncoded 10/30/21 19:02 eyes Review of Systems Constitutional: Constitutional: Reports no additional constitutional complaints, Denies chills, Denies fever(s) and Denies night sweats Eyes: Eyes: Reports no additional eye complaints, Denies blurry vision, Denies change in vision, Denies diplopia, Denies eye discharge, Denies loss of vision and Denies eye pain ENT: Denies dizziness Cardiovascular: Cardiovascular: Reports no additional cardiovascular complaints, Denies chest pain, Denies lightheadedness, Denies Loss of Consciousness and Denies dyspnea Respiratory: Respiratory: Reports no additional respiratory complaints and Denies dyspnea Gastrointestinal: Gastrointestinal: Reports no additional gastrointestinal complaints, Reports abdominal pain, Denies melena, Denies hematochezia, Denies change in bowel habits and Denies change in stool character Genitourinary: Genitourinary: Denies hematuria, Denies urinary frequency, Denies dysuria, Denies urinary incontinence, Denies urinary hesitancy and Denies urinary urgency Musculoskeletal: Musculoskeletal: Reports no additional musculoskeletal complaints, Denies numbness and Denies tingling Neurologic: Denies dizziness, Denies loss of vision, Denies numbness and Denies tingling Psychiatric: Psychiatric: Reports no additional psychiatric complaints Endocrine: Endocrine: Reports no additional endocrine complaints Hematologic/Lymphatic: Hematologic/Lymphatic: Reports no additional hematologic/lymphatic complaints Allergic/Immunologic: Allergic/Immunologic: Reports no additional allergic/immunologic complaints PMFSH Past Medical History Attestation statement: The following information was validated with the patient. Source: old records reviewed Medical History Cyst of ovary, left Diabetes DVT (deep venous thrombosis) GERD (gastroesophageal reflux disease) Iron deficiency Migraine Surgical History H/O resection of large bowel Hx of section Hx of tubal ligation Family History Family History Paternal Grandfather Cancer Paternal Uncle Stomach cancer Father Diabetes Heart attack Mother Diabetes Heart attack Social History Social History Household Members: Children Housing: Apartment Alcohol intake: never Patient Tobacco Use Status: Former Tobacco user Quit Date: 2018 Tobacco use type: Cigarette Use of substances other than those prescribed or required for medical reasons: No Advance Directives: No Advance Directives Information Provided: No Patient : No service: No Current occupational status: employed Physical Exam ED Vital Signs: Vital Signs - 24 hr 05/19/22 07:53 05/19/22 09:53 05/19/22 10:50 Temperature 98 F 98.3 F 98.1 F Pulse Rate 67 60 56 Respiratory Rate 16 18 18 Blood Pressure 134/86 139/82 139/82 Pulse Oximetry 98 98 98 Oxygen Delivery Method Room Air Room Air Room Air BMI result Body Mass Index 23.8 Const General: cooperative, no acute distress, alert and awake Nutritional Appearance: well nourished Orientation/consciousness: patient oriented x3 Limitations: no limitations HENID Head: Yes normal to inspection and Yes atraumatic Ears: hearing grossly normal bilaterally and external ears normal General nose exam: Normal external nose present, no nasal discharge noted and no epistaxis Face and sinus: Yes normal facial exam, No abrasion and No laceration Mouth: Normal oral and palatal mucosa present, no drooling and no muffled voice Eyes General: appearance normal, both eyes and all related structures Periorbital: periorbital findings normal Eyelids: Yes eyelids normal Conjunctivae: conjunctivae normal Pupils: Equal, round and reactive pupils present EOM: EOMs intact bilaterally Neck Neck: Yes normal visual inspection, Yes full ROM and Yes no lymphadenopathy Chest Chest palpation & inspection: normal inspection of the chest Resp Effort & Inspection: normal respiratory effort and able to speak in complete sentences Auscultation: clear to auscultation bilaterally Cardio Rate: regular rate Rhythm: regular rhythm GI Inspection: Yes normal to inspection Palpation (GI): Soft to palpation, not firm, nontender, no guarding and not rigid Neuro General: patient oriented x3 and moves all extremities Cranial nerves: Yes Equal, round and reactive pupils present Cognition (Neuro): normal cognition Motor exam (neuro): 5/5 motor strength present throughout Sensory Exam: Normal double simultaneous stimulation for sensation Coordination: [id number]-[id number] test normal Extrem General: Yes normal to inspection, Yes full ROM and Yes capillary refill normal Psych Appearance: grossly normal Mental Status: mental status grossly normal Affect: normal affect Attitude: cooperative Thought process: Normal thought process present Thought content: Normal thought content present Insight: Good insight present (Psych) Medical Decision Making MDM Narrative Medical decision making narrative: Patient is a 46 year old female presenting to the emergency department today with abdominal pain. Patient's physical exam was unremarkable. Patient's blood work was unremarkable. Patient's urine showed an acute urinary tract infection. Patient's abdominal CT showed no acute process. I explained my physical exam findings as well as all test results to the patient. I answered all questions asked by the patient. I stressed the importance of the patient taking her medication as prescribed. I stressed the importance of the patient following up with her primary care provider. I stressed the importance of the patient returning to the emergency department immediately if her symptoms were to worsen or if she were to develop any dizziness, shortness of breath, difficulty breathing, chest pain, blurry vision, loss of vision, nausea, vomiting, abdominal pain, fever, chills, back pain, or any other complaints. Patient verbalized agreement and understanding with this treatment plan and discharge. Medical Records Medical records reviewed: Yes I reviewed the patient's medical records. Lab Data Lab results reviewed: Yes I reviewed the patient's lab results. Result diagrams: 05/19/22 08:36 05/19/22 08:36 Labs: Lab Results 05/19/22 05/19/22 05/19/22 Range/Units 08:36 08:36 08:36 WBC 5.4 (4.8-10.8) X10*3/uL RBC 4.37 (4.20-5.50) X10*6/uL Hgb 11.8 L (12.0-16.0) g/dl Hct 36.6 L (37.0-47.0) % MCV 83.8 (80.0-98.0) fL MCH 27.0 (27.0-33.0) pg MCHC 32.2 (31.0-35.0) g/dl RDW 14.4 (11.0-16.0) % Plt Count 174 (160-400) X10*3/uL MPV 10.6 (9.4-12.3) fL Immature Gran % (Auto) 0.2 (0.0-0.4) % Neut % (Auto) 66.2 (45-73) % Lymph % (Auto) 25.7 (20-40) % [place] % (Auto) 6.1 (2-11) % Eos % (Auto) 1.1 (0-4) % Baso % (Auto) 0.7 (0-2) % Lymph # (Auto) 1.4 (1.2-4.9) X10*3/uL [place] # (Auto) 0.3 (0.1-1.2) X10*3/uL Eos # (Auto) 0.1 (0.0-0.4) X10*3/uL Baso # (Auto) 0.0 (0.0-0.2) X10*3/uL Abs Immat Gran (auto) 0.01 (0.00-0.03) X10*3/uL Absolute Neuts (auto) 3.6 (2.0-8.3) x10*3/uL Absolute Nucleated RBC 0.000 (0.0-0.012) X10*3/uL Nucleated RBC % (auto) 0.0 (0.0-0.2) /100WBC Sodium 140 (135-145) mmol/L Potassium 3.9 (3.3-5.1) mmol/L Chloride 106 (96-108) mmol/L Carbon Dioxide 27 (22-29) mmol/L Anion Gap 11 L (12-20) BUN 24 H (9-16) mg/dL Creatinine 0.77 (0.5-1.4) mg/dL Estim Creat Clear Calc 72.2 Estimated GFR > 60 Random Glucose 137 H (60-115) mg/dL Calcium 8.7 (8.4-10.2) mg/dL Magnesium 1.9 (1.6-2.6) mg/dL Total Bilirubin 0.2 (0.0-1.0) mg/dL Direct Bilirubin < 0.2 (0.0-0.5) mg/dL AST 13 (5-31) U/L ALT 11 (0-31) U/L Alkaline Phosphatase 66 (39-117) U/L Total Protein 6.2 L (6.5-8.0) g/dL Albumin 3.9 (3.5-5.0) g/dL Beta HCG, Quant 4 mIU/mL Urine Color Urine Appearance Urine pH (5.0-9.0) Ur Specific [place] (1.005-1.025) Urine Protein (Neg-Trace) mg/dL Urine Glucose (UA) (Negative) mg/dL Urine Ketones (Negative) mg/dL Urine Blood (Negative) Urine Nitrite (Negative) Ur Leukocyte Esterase (Negative) Urine RBC (0-2) /HPF Urine WBC (0-5) /HPF Ur Squamous Epith Cells (0-2) /HPF Urine Bacteria (None Seen) Hyaline Casts (0-2) /LPF 05/19/22 Range/Units 09:01 WBC (4.8-10.8) X10*3/uL RBC (4.20-5.50) X10*6/uL Hgb (12.0-16.0) g/dl Hct (37.0-47.0) % MCV (80.0-98.0) fL MCH (27.0-33.0) pg MCHC (31.0-35.0) g/dl RDW (11.0-16.0) % Plt Count (160-400) X10*3/uL MPV (9.4-12.3) fL Immature Gran % (Auto) (0.0-0.4) % Neut % (Auto) (45-73) % Lymph % (Auto) (20-40) % [place] % (Auto) (2-11) % Eos % (Auto) (0-4) % Baso % (Auto) (0-2) % Lymph # (Auto) (1.2-4.9) X10*3/uL [place] # (Auto) (0.1-1.2) X10*3/uL Eos # (Auto) (0.0-0.4) X10*3/uL Baso # (Auto) (0.0-0.2) X10*3/uL Abs Immat Gran (auto) (0.00-0.03) X10*3/uL Absolute Neuts (auto) (2.0-8.3) x10*3/uL Absolute Nucleated RBC (0.0-0.012) X10*3/uL Nucleated RBC % (auto) (0.0-0.2) /100WBC Sodium (135-145) mmol/L Potassium (3.3-5.1) mmol/L Chloride (96-108) mmol/L Carbon Dioxide (22-29) mmol/L Anion Gap (12-20) BUN (9-16) mg/dL Creatinine (0.5-1.4) mg/dL Estim Creat Clear Calc Estimated GFR Random Glucose (60-115) mg/dL Calcium (8.4-10.2) mg/dL Magnesium (1.6-2.6) mg/dL Total Bilirubin (0.0-1.0) mg/dL Direct Bilirubin (0.0-0.5) mg/dL AST (5-31) U/L ALT (0-31) U/L Alkaline Phosphatase (39-117) U/L Total Protein (6.5-8.0) g/dL Albumin (3.5-5.0) g/dL Beta HCG, Quant mIU/mL Urine Color Yellow Urine Appearance Clear Urine pH 5.5 (5.0-9.0) Ur Specific [place] 1.025 (1.005-1.025) Urine Protein Negative (Neg-Trace) mg/dL Urine Glucose (UA) 100 H (Negative) mg/dL Urine Ketones Negative (Negative) mg/dL Urine Blood Negative (Negative) Urine Nitrite Negative (Negative) Ur Leukocyte Esterase Small (1+) H (Negative) Urine RBC 3-5 H (0-2) /HPF Urine WBC 11-20 H (0-5) /HPF Ur Squamous Epith Cells 6-10 (0-2) /HPF Urine Bacteria Trace (None Seen) Hyaline Casts 0-2 (0-2) /LPF Imaging Data CT scan - abdomen: Attestation: I personally reviewed and interpreted this imaging study as follows: My impression: No acute process. Radiologist's impression: EXAMINATION: CT ABDOMEN AND PELVIS WITH CONTRAST? CLINICAL INFORMATION: Abdominal pain postop? COMPARISON: Pelvic ultrasound 11/13/[address] abdomen pelvis 02/07/2021? TECHNIQUE: Multidetector volumetric images were obtained from the superior aspect of the liver through the pubic symphysis following administration 85 mL of Omnipaque 350 intravenous contrast. Sagittal and coronal reformatted images were obtained on the technologist's workstation.? This CT examination was performed using dose optimization techniques as appropriate, variously including the following: *Automated exposure control *Adjustment of mA and/or kV according to patient size (this includes techniques or standardized protocols for targeted exams where dose is matched to indication/reason for exam; i.e. extremities or head) *Use of iterative reconstruction technique DLP: 436 mGy-cm FINDINGS: LUNG BASES: Visualized lung bases demonstrate minimal dependent atelectasis. The liver demonstrates normal size, contour and attenuation. The gallbladder is normal in appearance. The pancreas, spleen and adrenal glands are unremarkable. Symmetrically enhancing kidneys. No hydronephrosis bilaterally. Normal caliber loops of small and large bowel. Unremarkable anastomotic suture line within the proximal sigmoid colon. There is a mild colonic stool burden. Normal appendix. Normal caliber abdominal aorta. No retroperitoneal lymphadenopathy. The bladder is normal in appearance. Unremarkable CT appearance of the uterus. 2.1 cm right adnexal cyst. Previously visualized left ovarian cyst not clearly identified on today's imaging. There is no gross free pelvic fluid. No inguinal lymphadenopathy. Mild degenerative changes of the spine. CT/CT abdomen pelvis w IV con IMPRESSION: No CT evidence for acute abnormality within the abdomen or pelvis.? ? Fleischner guidelines were followed. Dictated By: Darnell Pike MD Signed By: Electronically signed by Darnell Pike MD 05/19/22 5005 Discharge Plan Discharge Clinical Impression: UTI (urinary tract infection) Patient Disposition: Home, Self-Care Instructions: Urinary Tract Infection in Women (ED) Additional Instructions: Follow up with your primary care provider. Return to the emergency department immediately if your symptoms worsen or if you develop any dizziness, shortness of breath, difficulty breathing, chest pain, blurry vision, loss of vision, nausea, vomiting, abdominal pain, fever, chills, back pain, or any other complaints. Prescriptions: New nitrofurantoin macrocrystal 100 mg capsule 100 mg PO BID 7 Days Qty: 14 0RF Rx Instructions: must administer with a meal/food fluconazole [Diflucan] 150 mg tablet 150 mg PO Q3D Qty: 2 0RF No Action metformin 500 mg tablet 1 tab PO BID tramadol 50 mg tablet 1 tab PO Q8H PRN (Reason: Pain) bfpeqlobxm-iyzgpxnohlerj-uyie 50-325-40 mg tablet 1 - 2 tab PO Q4H PRN (Reason: migraine) omeprazole 20 mg capsule,delayed release(DR/EC) 1 cap PO DAILY loratadine 10 mg tablet 1 tab PO DAILY Trulicity 1.5 mg/0.5 mL pen injector 1.5 mg subcut QWEEK amitriptyline 10 mg tablet 1 tab PO BEDTIME ibuprofen 600 mg tablet 600 mg PO Q6H PRN (Reason: fever or pain) Qty: 60 0RF Referrals: Randi Chávez MD [Primary Care Provider] - Interventions: ED Discharge Assessment Last Done: 05/19/22 10:58 Discharge Date/Time: 05/19/22 10:58 Print Language: Spanish
[2022-05-19 08:44] LABS: MANUAL DIFF FLAG NO
[2022-05-19] MEDS: Pantoprazole Sodium 40 MG/10 ML VIAL IVPUSH (08:44)
[2022-05-19] MEDS: 0.9 % Sodium Chloride 1,000 ML 999 ML IV (08:44)
[2022-05-19 08:45] LABS: Basophils Percent Auto 0.7 % (0-2); Eosinophils Absolute Auto 0.1 X10*3/uL (0.0-0.4); Eosinophils Percent Auto 1.1 % (0-4); Hematocrit 36.6 % (37.0-47.0); Hemoglobin 11.8 g/dl (12.0-16.0); Imm Gran Abs Auto 0.01 X10*3/uL (0.00-0.03); Imm Gran Pct Auto 0.2 % (0.0-0.4); Lymphocytes Absolute Auto 1.4 X10*3/uL (1.2-4.9); Lymphocytes Percent Auto 25.7 % (20-40); Mean Corpuscular HGB Conc 32.2 g/dl (31.0-35.0); Mean Corpuscular Volume 83.8 fL (80.0-98.0); Mean Platelet Volume 10.6 fL (9.4-12.3); Monocytes Absolute Auto 0.3 X10*3/uL (0.1-1.2); Monocytes Percent Auto 6.1 % (2-11); Neutrophils Absolute Auto 3.6 x10*3/uL (2.0-8.3); Neutrophils Percent Auto 66.2 % (45-73); Platelet Count 174 X10*3/uL (160-400); Red Blood Count 4.37 X10*6/uL (4.20-5.50); Red Cell Distribution Width 14.4 % (11.0-16.0); White Blood Count 5.4 X10*3/uL (4.8-10.8)
[2022-05-19 09:03] LABS: Anion Gap 11 (12-20); Blood Urea Nitrogen 24 mg/dL (9-16); Calcium 8.7 mg/dL (8.4-10.2); Carbon Dioxide 27 mmol/L (22-29); Chloride 106 mmol/L (96-108); Creatinine Clr Calc Pharmacy 72.2; Estimated Glomerular Filt Rate > 60; Glucose Random 137 mg/dL (60-115); Potassium 3.9 mmol/L (3.3-5.1); Sodium 140 mmol/L (135-145)
[2022-05-19 09:25] LABS: Appearance Urine Clear; Color Urine Yellow; Glucose Urine UA 100 mg/dL (Negative); Leukocyte Esterase Urine Small (1+) (Negative); Nitrite Urine Negative (Negative); PH 5.5 (5.0-9.0); Specific Gravity - Urine 1.025 (1.005-1.025); Urine Blood Negative (Negative); Urine Ketones Negative (Negative); Urine Protein Negative (Neg-Trace)
[2022-05-19 09:30] LABS: Bacteria Urine Trace (None Seen); Hyaline Casts Urine 0-2 /LPF (0-2); UACC Culture Trigger YES
[2022-05-19 09:40] LABS: Alanine Aminotransferase 11 U/L (0-31); Albumin Level 3.9 g/dL (3.5-5.0); Alkaline Phosphatase 66 U/L (39-117); Aspartate Amino Transferase 13 U/L (5-31); Bilirubin Direct < 0.2 mg/dL (0.0-0.5); Bilirubin Total 0.2 mg/dL (0.0-1.0); Magnesium 1.9 mg/dL (1.6-2.6); Total Protein 6.2 g/dL (6.5-8.0)
[2022-05-19 09:43] LABS: HCG Quantitative 4 mIU/mL
[2022-05-19] MEDS: iohexoL 350 MG/ML 100 ML INFUS..BTL IV (09:49)
[2022-05-19 09:53] VITALS: BP 139/82; PULSE 60; RESP 18; TEMP 36.8; O2SAT 98
[2022-05-19 10:50] VITALS: BP 139/82; PULSE 56; RESP 18; TEMP 36.7; O2SAT 98
== END 2022-05-19 10:58 | disposition home or self-care (01) ==
PROVIDERS: Physician Assistant Medical; Emergency Provider Emergency Medicine; PCP Family Medicine
DX: N39.0 Urinary tract infection, site not specified (principal); R10.9 Unspecified abdominal pain; E11.9 Type 2 diabetes mellitus without complications; Z86.718 Personal history of other venous thrombosis and embolism; Z79.84 Long term (current) use of oral hypoglycemic drugs; Z79.899 Other long term (current) drug therapy
CPT/HCPCS: 36415; 74177; 80048; 80076; 81001; 83735; 84702; 85025; 96361; 96374; 99284; Q9967

== ENCOUNTER 2022-11-14 14:19 | Outpatient (REF) | payer MEDICAID, SELFPAY ==
--- NOTE | ~2022-11-14 | MM_ITS ---
EXAMINATION: MM SCREENING DIGITAL BREAST TOMOSYNTHESIS, BILATERAL CLINICAL INFORMATION: Screening. Asymptomatic. The lifetime risk of breast cancer based on the Tyrer-Cuzick Model is 10%. COMPARISON: Mammography: 11/12/2021, 10/17/2020, 10/12/2019 TECHNIQUE: Digital breast tomosynthesis is performed in both the craniocaudal and mediolateral oblique views along with computer-aided detection (CAD). Synthesized 2D images are generated from the tomosynthesis. FINDINGS: There are scattered areas of fibroglandular density (ACR BI-RADS breast composition Category b). There are no significant masses, abnormal calcifications, or other abnormalities. Parenchymal pattern is similar to prior studies. There is no developing density or architectural abnormality. The axilla and skin contours are unremarkable. No significant changes. MM/MM tomosynthesis screening BI IMPRESSION: No mammographic evidence of malignancy. ASSESSMENT: BI-RADS 1: Negative RECOMMENDATION: Routine annual mammography screening. This patient's information was entered into a reminder system with a target due date for their next mammogram.
== END 2022-11-14 14:20 | disposition home or self-care (01) ==
LOC: HO.MAMMO 14:19
PROVIDERS: PCP Family Medicine; Visit Provider Family Medicine
DX: Z12.31 Encounter for screening mammogram for malignant neoplasm of breast (principal)
CPT/HCPCS: 77063; 77067

== ENCOUNTER 2023-02-18 09:03 | Emergency (ER) | payer MEDICAID, SELFPAY ==
--- NOTE | ~2023-02-18 | CT_ITS ---
EXAMINATION: CT ABDOMEN AND PELVIS WITH CONTRAST CLINICAL INFORMATION: Left lower quadrant abdominal pain, watery diarrhea, bloody bowel movements COMPARISON: CT abdomen pelvis 05/19/2022 TECHNIQUE: Multidetector volumetric images were obtained from the superior aspect of the liver through the pubic symphysis following administration 85 mL of Omnipaque 350 intravenous contrast. Sagittal and coronal reformatted images were obtained on the technologist's workstation. Oral contrast: No This CT examination was performed using dose optimization techniques as appropriate, variously including the following: *Automated exposure control *Adjustment of mA and/or kV according to patient size (this includes techniques or standardized protocols for targeted exams where dose is matched to indication/reason for exam; i.e. extremities or head) *Use of iterative reconstruction technique DLP: 467 mGy-cm FINDINGS: LUNG BASES: The visualized lung bases are unremarkable. LIVER, GALLBLADDER, AND BILIARY TREE: The liver is normal in size, shape, and attenuation. No focal hepatic lesion or biliary ductal dilatation is present. The gallbladder is unremarkable with no evidence of radiopaque gallstones, gallbladder wall thickening, or obvious pericholecystic inflammatory changes. PANCREAS: Unremarkable. SPLEEN: Unremarkable. ADRENAL GLANDS: Unremarkable. KIDNEYS AND URETERS: The kidneys are normal in size, shape, and attenuation. No hydronephrosis, hydroureter, or calculi seen. No perinephric stranding. BLADDER: Unremarkable. GASTROINTESTINAL TRACT: A sigmoid anastomosis is present without obstruction The small and large bowel are otherwise unremarkable. No evidence of bowel obstruction. The appendix is unremarkable. ABDOMINAL WALL: No significant hernia is appreciated. Air is present in the subcutaneous tissues of the right abdomen presumably from subcutaneous injection. LYMPH NODES: Normal. VASCULAR: Unremarkable. PELVIC VISCERA: Female OSSEOUS STRUCTURES: Unremarkable. CT/CT abdomen pelvis w IV con IMPRESSION: A cause for the patient's abdominal pain and diarrhea has not been found. Fleischner guidelines were followed.
[2023-02-18 09:32] VITALS: BP 135/85; PULSE 77; RESP 18; TEMP 36.3; O2SAT 97; BMI 26.8
--- NOTE | 2023-02-18 10:14 | ED_ITS ---
HPI - Nausea/Vomiting/Diarrhea General Chief complaint: Nausea/Vomiting/Diarrhea Stated complaint: diharea, stomach ache Time Seen by Provider: 02/18/23 10:11 Source: patient, RN notes reviewed and old records reviewed Mode of arrival: ambulatory History of Present Illness HPI Narrative: 47-year-old female with a past medical history of diabetes, DVT, GERD, iron deficiency, migraines, presenting to the ED complaining of abdominal cramping, watery mucousy and bloody streak diarrhea, and nausea x4 days s/p eating street tacos. Reports emesis yesterday, & decreased p.o. intake. Denies fever, chills, dysuria/hematuria, sick contacts, taking anticoagulation. Has been taking imodium w/o relief MD elicited complaint: nausea, diarrhea and abdominal pain Related Data Home Medications Medication Instructions Recorded Confirmed cdhcoqpagn-puyhgvsofswaa-teayotis 1 - 2 tab PO Q4H PRN migraine 07/02/21 09/03/21 50 mg-325 mg-40 mg tablet dulaglutide 1.5 mg/0.5 mL 1.5 mg subcut QWEEK 07/02/21 09/03/21 subcutaneous pen injector (Trulicity) loratadine 10 mg tablet 1 tab PO DAILY 07/02/21 09/03/21 metformin 500 mg tablet 1 tab PO BID 07/02/21 09/03/21 omeprazole 20 mg capsule,delayed 1 cap PO DAILY 07/02/21 09/03/21 release tramadol 50 mg tablet 1 tab PO Q8H PRN Pain 07/02/21 09/03/21 amitriptyline 10 mg tablet 1 tab PO BEDTIME headache 03/12/22 03/12/22 Previous Rx's Medication Instructions Recorded ibuprofen 600 mg tablet 600 mg PO Q6H PRN fever or pain 11/13/21 #60 tabs fluconazole 150 mg tablet 150 mg PO Q3D 2 doses #2 tabs 05/19/22 (Diflucan) nitrofurantoin macrocrystal 100 mg 100 mg PO BID 7 days #14 caps 05/19/22 capsule Allergies Allergy/AdvReac Type Severity Reaction Status Date / Time Penicillins [PENICILLINS] Allergy Unknown RASH Verified 02/18/23 09:31 sumatriptan [SUMATRIPTAN] Allergy Unknown DIFF Verified 02/18/23 09:31 BREATHING grass pollen Allergy Difficulty Verified 02/18/23 09:31 Breathing mite-Dermatophagoides Allergy Difficulty Verified 02/18/23 09:31 farinae, stacey Breathing [dust mite - [place]] Bunnys Allergy Unknown Rash/red Uncoded 02/18/23 09:31 eyes Cats Allergy Unknown Rash/red Uncoded 02/18/23 09:31 eye Dogs Allergy Unknown Rash/red Uncoded 02/18/23 09:31 eyes Review of Systems Review of Systems: Constitutional: No Fever, No Chills, No Fatigue, No Malaise ENT/Mouth: No Hearing loss, No Ear Pain, No Nasal Congestion,No sore throat, No Rhinorrhea, No Swallowing Difficulty Eyes: No Eye Pain, No Swelling, No Redness, No Foreign Body, No Discharge, No Vision Changes Cardiovascular: No Chest Pain, No SOB, No Palpitations Respiratory: No Cough, No Sputum, No Dyspnea Gastrointestinal: + Nausea, + Vomiting, No Diarrhea, No Constipation, + Abdominal pain Genitourinary: No Dysuria, No Hematuria, No Flank Pain, No Urinary Flow Changes, No Hesitancy Musculoskeletal: No joint pain, No Myalgias, No Joint Swelling Skin: No Skin Lesions, No rash Neuro: No Weakness, No Headache Yes all other systems are reviewed and are negative Constitutional: Constitutional: Reports as per [facility] Past Medical History Attestation statement: The following information was validated with the patient. Source: old records reviewed Medical History Cyst of ovary, left Diabetes DVT (deep venous thrombosis) GERD (gastroesophageal reflux disease) Iron deficiency Migraine Surgical History H/O resection of large bowel Hx of section Hx of tubal ligation Family History Family History Paternal Grandfather Cancer Paternal Uncle Stomach cancer Father Diabetes Heart attack Mother Diabetes Heart attack Social History Social History Household Members: Children Housing: Apartment Alcohol intake: never Patient Tobacco Use Status: Former Tobacco user Quit Date: 2018 Tobacco use type: Cigarette Smoked in Last 30 Days: No Use of substances other than those prescribed or required for medical reasons: No Advance Directives: No Advance Directives Information Provided: No service: No Current occupational status: employed Physical Exam Vital Signs: Vital Signs: Last Vital Signs Temp 98.1 F 02/18/23 10:15 Pulse 65 02/18/23 15:00 Resp 17 02/18/23 15:00 BP 149/92 H 02/18/23 15:00 Pulse Ox 98 02/18/23 15:00 O2 Del Method Room Air 02/18/23 15:00 BMI result Body Mass Index 26.8 Const: General: cooperative, healthy appearing and no acute distress Orientation/consciousness: patient oriented x3 Limitations: no limitations HEENT: Head: Yes normal to inspection and Yes atraumatic Ears: hearing grossly normal bilaterally General nose exam: Normal external nose present Face and sinus: Yes normal facial exam Eyes: General: appearance normal, both eyes and all related structures EOM: EOMs intact bilaterally Neck: Neck: Yes normal visual inspection and Yes no meningeal signs Resp: Effort & Inspection: normal respiratory effort and no respiratory distress Auscultation: clear to auscultation bilaterally Cardio: Rate: regular rate Heart sounds: S1 normal heart sound present and S2 normal heart sound present GI: Inspection: Yes normal to inspection Palpation (GI): Soft to palpation, Tenderness to palpation present (GI) in the LLQ; with no rebound tenderness, no guarding and not rigid : General: Yes no CVA tenderness Back/Spine/Pelvis: Back: no CVA tenderness Skin: Rashes: no rashes Wounds: no wounds Neuro: General: patient oriented x3, tone normal and no meningeal signs Gait exam (Neuro): Normal gait present Extrem: General: Yes normal to inspection Course Course Course Narrative: -[id number]--no leukocytosis. Labs otherwise reassuring -UA negative. Occult stool negative. C diff negative CT abdomen pelvis w IV con IMPRESSION: A cause for the patient's abdominal pain and diarrhea has not been found. ? Fleischner guidelines were followed. > patient tolerating p.o. in the ED. Reports symptomatic improvement Results discussed with patient including worrisome signs and symptoms and strict return precautions, and when to return to the emergency department. They verbalized understanding and feel safe for discharge at this time. Medications Administered Discontinued Medications Generic Name Dose Route Start Last Admin Trade Name Freq PRN Reason Stop Dose Admin Sodium Chloride 1,000 mls @ 999 mls/hr 02/18/23 10:45 02/18/23 13:08 Ns IV 02/18/23 11:45 Infused .Q1H1M PHU Infusion Iohexol 85 ml 02/18/23 11:50 02/18/23 11:51 Iohexol 350 Mg/Ml 100 Ml Infus..Btl IV 02/18/23 11:51 85 ml ONCE ONE Administration Ketorolac Tromethamine 15 mg 02/18/23 10:46 02/18/23 10:58 Ketorolac Tromethamine 15 Mg/Ml Vial IVPUSH 02/18/23 10:47 15 mg ONCE ONE Administration Ondansetron HCl 4 mg 02/18/23 10:44 02/18/23 10:58 Ondansetron Hcl 4 Mg/2 Ml Vial IVPUSH 02/18/23 10:45 4 mg ONCE ONE Administration Medical Decision Making Medical Decision Making MDM Narrative: 47-year-old female with a past medical history of diabetes, DVT, GERD, iron deficiency, migraines, presenting to the ED complaining of abdominal cramping, watery mucousy and bloody streak diarrhea, and nausea x4 days s/p eating street tacos. On exam vital signs stable, NAD, nontoxic appearing, abdomen soft with left lower quadrant tenderness, no rebound or guarding, no CVAT. No stool noted in rectal vault. Concern for food poisoning vs gastroenteritis vs colitis or diverticulitis. Lower suspicion for renal stone/pyelo, UTI, appendicitis Plan: Labs, UA, occult stool, stool studies, IVF, CT AP, re-evaluate Please refer to course for remaining clinical decision making, interpretation of labs/imaging results, and discussions with consultants and/or family members. Differential Diagnosis Differential Diagnoses: The differential diagnosis associated with the presentation includes As above Admission/Observation Consideration of admission/observation: Escalation of care including adm ission/observation considered Lab Data MDM Lab Attestation statement: I reviewed the patient's lab results. 02/18/23 10:57 02/18/23 10:57 Labs: Lab Results 02/18/23 02/18/23 02/18/23 Range/Units 10:54 10:54 10:57 WBC 9.5 (4.8-10.8) X10*3/uL RBC 4.66 (4.20-5.50) X10*6/uL Hgb 12.6 (12.0-16.0) g/dl Hct 39.2 (37.0-47.0) % MCV 84.1 (80.0-98.0) fL MCH 27.0 (27.0-33.0) pg MCHC 32.1 (31.0-35.0) g/dl RDW 12.8 (11.0-16.0) % Plt Count 214 (160-400) X10*3/uL MPV 10.6 (9.4-12.3) fL Immature Gran % (Auto) 0.2 (0.0-0.4) % Neut % (Auto) 58.4 (45-73) % Lymph % (Auto) 29.5 (20-40) % [place] % (Auto) 9.1 (2-11) % Eos % (Auto) 2.2 (0-4) % Baso % (Auto) 0.6 (0-2) % Lymph # (Auto) 2.8 (1.2-4.9) X10*3/uL [place] # (Auto) 0.9 (0.1-1.2) X10*3/uL Eos # (Auto) 0.2 (0.0-0.4) X10*3/uL Baso # (Auto) 0.1 (0.0-0.2) X10*3/uL Abs Immat Gran (auto) 0.02 (0.00-0.03) X10*3/uL Absolute Neuts (auto) 5.5 (2.0-8.3) x10*3/uL Absolute Nucleated RBC 0.000 (0.0-0.012) X10*3/uL Nucleated RBC % (auto) 0.0 (0.0-0.2) /100WBC Sodium (135-145) mmol/L Potassium (3.3-5.1) mmol/L Chloride (96-108) mmol/L Carbon Dioxide (22-29) mmol/L Anion Gap (12-20) BUN (9-16) mg/dL Creatinine (0.5-1.4) mg/dL Estim Creat Clear Calc Estimated GFR Random Glucose (60-115) mg/dL Calcium (8.4-10.2) mg/dL Magnesium (1.6-2.6) mg/dL Total Bilirubin (0.0-1.0) mg/dL Direct Bilirubin (0.0-0.5) mg/dL AST (5-31) U/L ALT (0-31) U/L Alkaline Phosphatase (39-117) U/L Total Protein (6.5-8.0) g/dL Albumin (3.5-5.0) g/dL Lipase (8-78) U/L Urine Color Yellow Urine Appearance Clear Urine pH 5.5 (5.0-9.0) Ur Specific [place] 1.020 (1.005-1.025) Urine Protein Negative (Neg-Trace) mg/dL Urine Glucose (UA) Negative (Negative) mg/dL Urine Ketones Negative (Negative) mg/dL Urine Blood Negative (Negative) Urine Nitrite Negative (Negative) Ur Leukocyte Esterase Negative (Negative) Stool Occult Blood NEGATIVE (NEGATIVE) Stl C. cayetanensis PCR (Not Detect.) Stool Rotavirus A PCR (Not Detect.) Stl Adenov F 40/41 PCR (Not Detect.) Stool Astrovirus (PCR) (Not Detect.) Stool Campylobacter PCR (Not Detect.) Stool Cryptosporidium PCR (Not Detect.) Stl Sh Tox Pr E STEC PCR (Not Detect.) Stool E coli O157 PCR (Not Detect.) Stl Enterotoxigenic E PCR (Not Detect.) Stool EPEC (PCR) (Not Detect.) Stool EAEC (PCR) (Not Detect.) Stl E. histolytica PCR (Not Detect.) Stool Giardia Lamblia PCR (Not Detect.) Stl P. shigelloides PCR (Not Detect.) Stool Salmonella PCR (Not Detect.) Stool Sapovirus (PCR) (Not Detect.) Stl Shigella/EIEC PCR (Not Detect.) St Y.enterocolitica PCR (Not Detect.) Stool Vibrio (PCR) (Not Detect.) Stl Vibrio cholerae PCR (Not Detect.) Stl Norovirus GI/GII PCR (Not Detect.) C. difficile Tox B Gene (Negative) 02/18/23 02/18/23 02/18/23 Range/Units 10:57 12:54 12:54 WBC (4.8-10.8) X10*3/uL RBC (4.20-5.50) X10*6/uL Hgb (12.0-16.0) g/dl Hct (37.0-47.0) % MCV (80.0-98.0) fL MCH (27.0-33.0) pg MCHC (31.0-35.0) g/dl RDW (11.0-16.0) % Plt Count (160-400) X10*3/uL MPV (9.4-12.3) fL Immature Gran % (Auto) (0.0-0.4) % Neut % (Auto) (45-73) % Lymph % (Auto) (20-40) % [place] % (Auto) (2-11) % Eos % (Auto) (0-4) % Baso % (Auto) (0-2) % Lymph # (Auto) (1.2-4.9) X10*3/uL [place] # (Auto) (0.1-1.2) X10*3/uL Eos # (Auto) (0.0-0.4) X10*3/uL Baso # (Auto) (0.0-0.2) X10*3/uL Abs Immat Gran (auto) (0.00-0.03) X10*3/uL Absolute Neuts (auto) (2.0-8.3) x10*3/uL Absolute Nucleated RBC (0.0-0.012) X10*3/uL Nucleated RBC % (auto) (0.0-0.2) /100WBC Sodium 140 (135-145) mmol/L Potassium 3.8 (3.3-5.1) mmol/L Chloride 106 (96-108) mmol/L Carbon Dioxide 27 (22-29) mmol/L Anion Gap 11 L (12-20) BUN 15 (9-16) mg/dL Creatinine 0.77 (0.5-1.4) mg/dL Estim Creat Clear Calc 80.7 Estimated GFR > 60 Random Glucose 109 (60-115) mg/dL Calcium 9.0 (8.4-10.2) mg/dL Magnesium 2.0 (1.6-2.6) mg/dL Total Bilirubin 0.5 (0.0-1.0) mg/dL Direct Bilirubin 0.1 (0.0-0.5) mg/dL AST 21 (5-31) U/L ALT 16 (0-31) U/L Alkaline Phosphatase 74 (39-117) U/L Total Protein 7.2 (6.5-8.0) g/dL Albumin 4.1 (3.5-5.0) g/dL Lipase 15 (8-78) U/L Urine Color Urine Appearance Urine pH (5.0-9.0) Ur Specific [place] (1.005-1.025) Urine Protein (Neg-Trace) mg/dL Urine Glucose (UA) (Negative) mg/dL Urine Ketones (Negative) mg/dL Urine Blood (Negative) Urine Nitrite (Negative) Ur Leukocyte Esterase (Negative) Stool Occult Blood (NEGATIVE) Stl C. cayetanensis PCR Not Detected (Not Detect.) Stool Rotavirus A PCR Not Detected (Not Detect.) Stl Adenov F 40/41 PCR Not Detected (Not Detect.) Stool Astrovirus (PCR) Not Detected (Not Detect.) Stool Campylobacter PCR Not Detected (Not Detect.) Stool Cryptosporidium PCR Not Detected (Not Detect.) Stl Sh Tox Pr E STEC PCR Not Detected (Not Detect.) Stool E coli O157 PCR Not applicable (Not Detect.) Stl Enterotoxigenic E PCR Not Detected (Not Detect.) Stool EPEC (PCR) Not Detected (Not Detect.) Stool EAEC (PCR) Detected A (Not Detect.) Stl E. histolytica PCR Not Detected (Not Detect.) Stool Giardia Lamblia PCR Not Detected (Not Detect.) Stl P. shigelloides PCR Not Detected (Not Detect.) Stool Salmonella PCR Not Detected (Not Detect.) Stool Sapovirus (PCR) Not Detected (Not Detect.) Stl Shigella/EIEC PCR Not Detected (Not Detect.) St Y.enterocolitica PCR Not Detected (Not Detect.) Stool Vibrio (PCR) Not Detected (Not Detect.) Stl Vibrio cholerae PCR Not Detected (Not Detect.) Stl Norovirus GI/GII PCR Not Detected (Not Detect.) C. difficile Tox B Gene NEGATIVE (Negative) Radiology Impression Discussion of test interpretation with radiology: I have reviewed the radiol ogist's reading. External Record Review External record reviewed: Inpatient record, Office record, Outpatient record, Prior outpatient labs, Prior outpatient radiology, Primary care record and Outside ED record Tests considered The following testing was considered but not selected: As above Discharge Plan Discharge Clinical Impression: Food poisoning Patient Disposition: Home, Self-Care Instructions: Acute Diarrhea (ED) Additional Instructions: Your blood work and CT scan were reassuring Your stool studies are pending and should be back in 48-72 hours, we will call you with positive results only Make sure your staying hydrated compensating for your losses If symptoms persist or worsen return to the emergency department Follow-up with your doctor Prescriptions: No Action nitrofurantoin macrocrystal 100 mg capsule 100 mg PO BID 7 Days Qty: 14 0RF Rx Instructions: must administer with a meal/food fluconazole [Diflucan] 150 mg tablet 150 mg PO Q3D Qty: 2 0RF metformin 500 mg tablet 1 tab PO BID tramadol 50 mg tablet 1 tab PO Q8H PRN (Reason: Pain) whzffdrjfq-unaomubixaqxp-huiy 50-325-40 mg tablet 1 - 2 tab PO Q4H PRN (Reason: migraine) omeprazole 20 mg capsule,delayed release(DR/EC) 1 cap PO DAILY loratadine 10 mg tablet 1 tab PO DAILY Trulicity 1.5 mg/0.5 mL pen injector 1.5 mg subcut QWEEK amitriptyline 10 mg tablet 1 tab PO BEDTIME ibuprofen 600 mg tablet 600 mg PO Q6H PRN (Reason: fever or pain) Qty: 60 0RF Referrals: Randi Chávez MD [Primary Care Provider] - Interventions: ED Discharge Assessment Last Done: 02/18/23 15:01 Discharge Date/Time: 02/18/23 15:03
[2023-02-18 10:15] VITALS: BP 153/90; PULSE 66; RESP 20; TEMP 36.7; O2SAT 98
--- NOTE | 2023-02-18 10:21 | PC.NURSE ---
Patient ambulated to bathroom, given cups to give urine and stool samples.
--- OUTSIDE RECORDS SUMMARY | 2023-02-18 10:33 | XMS_ITS | Continuity of Care Document ---
Author Name Unknown Organization [email or web address] Address [address], [address] [place] [address]- Care Team Providers Care Straightedge Man Name Role Phone Kyler PERALES, Randi [id number] Date(s): 03/18/22 - 03/25/22 [facility] [address] [place], [place] [id number] Attending Physician: Whitley Silva MD Referring Physician: Randi Chávez MD Allergies, Adverse Reactions, Alerts Substance Reaction Severity Status penicillin redness Active SUMAtriptan chest tightness Active Medications acetaminophen 325 mg oral tablet 975 mg, By Mouth, Every 6 hours, # 50 tablet, Refills 0, Tot. Refills 0, Maintenance, 02/08/22 18:44:00 EDT, Route to Pharmacy Electronically, [facility]/pharmacy #[id number], Partial fill upon patient request ifthe prescription is for a schedule II opioid drug.,... Start Date: 02/08/22 Status: Ordered amitriptyline 10 mg oral tablet 10 mg, 1, tablet, By Mouth, Daily at bedtime, Refills 0, Maintenance, 02/04/22 10:19:00 EDT, Partial fill upon patient request if the prescription is for a schedule II opioid drug. Start Date: 02/04/22 Status: Ordered docusate-senna 50 mg-187 mg oral tablet 2 tablet, By Mouth, Daily, # 60 tablet, 0 Refills, Maintenance, 02/08/22 18:44:00 EDT, Tablet, [facility]/pharmacy #[id number], Partial fill upon patient request if the prescription is for a schedule II opioid drug., 2 tablet By Mouth Daily, 157.4, cm, 02/08/22 15... Start Date: 02/08/22 Status: Ordered epi pen epi pen, 0 Refills, Maintenance, 01/28/22 7:55:00 EDT Start Date: 01/28/22 Status: Ordered ibuprofen 600 mg oral tablet 600 mg, 1, tablet, By Mouth, Every 6 hours, # 50 tablet, Refills 0, Tot. Refills 0, Maintenance, 02/08/22 18:44:00 EDT, Route to Pharmacy Electronically, [facility]/pharmacy #[id number], Partial fill upon patientrequest if the prescription is for a schedule II op... Start Date: 02/08/22 Status: Ordered Loratadine 10 mg, By Mouth, Daily, Refills 0, Maintenance, 01/28/22 7:55:00 EDT, Partial fill upon patient request if the prescription is for a schedule II opioid drug. Start Date: 01/28/22 Status: Ordered Metformin = 500 mg, By Mouth, 2 times a day, 0 Refills, Maintenance, 01/28/22 7:54:00 EDT, Partial fill upon patient request if the prescription is for a schedule II opioid drug. Start Date: 01/28/22 Status: Ordered Omeprazole = 20 mg, By Mouth, Daily, 0 Refills, Maintenance, 02/04/22 10:17:00 EDT, Partial fill upon patient request if the prescription is for a schedule II opioid drug. Start Date: 02/04/22 Status: Ordered Trulicity Pen = 1.5 mg, Subcutaneous Infusion, Every 7 days, takes on Thursday, 0 Refills, Maintenance, 01/28/22 7:54:00 EDT, Partial fill upon patient request if the prescription is for a schedule II opioid drug. Start Date: 01/28/22 Status: Ordered Vitamin D3 2000 intl units oral capsule 1 capsule = 50 mcg, By Mouth, Daily, # 60 capsule, 0 Refills, Maintenance, 02/04/22 10:17:00 EDT, Capsule, Partial fill upon patient request if the prescription is for a schedule II opioid drug. Start Date: 02/04/22 Status: Ordered Problem List Condition Effective Dates Status Health Status Inform ant DVT - Deep vein thrombosis(Confirmed) 11/26/19 Active Type 2 diabetes mellitus(Confirmed) Active Vital Signs Most recent to oldest [Reference Range]: 1 Height 157.4 cm (03/18/22 1:22 PM) Weight 60.56 kg (03/18/22 1:22 PM) Body Mass Index [18.5-24.99] 24.44 (03/18/22 1:22 PM) Blood Pressure [90-138/55-84 mm Hg] 133/ 83mm Hg (03/18/22 1:22 PM) Blood pressure sites Arm, right (03/18/22 1:22 PM) Weight Obtained Via Standing scale (03/18/22 1:22 PM) Social History Social History Type Response Smoking Status Former smoker, quit more than 30 days ago entered on: 11/26/21 Sex
--- OUTSIDE RECORDS SUMMARY | 2023-02-18 10:33 | XMS_ITS | Continuity of Care Document ---
Author Name Unknown Organization [facility] ter Address [address] [place] [address]- Care Team Providers Care Strip Machine Tender Name Role Phone Randi Chávez MD Primary Care Physician Encounter [facility] Date(s): 02/05/22 - 02/08/[address] [address]- Encounter Diagnosis DVT - Deep vein thrombosis(Discharge Diagnosis) - 02/05/22 Type 2 diabetes mellitus(Discharge Diagnosis) - 02/05/22 Discharge Disposition: A-D/C Home Attending Physician: Whitley Silva MD Admitting Physician: Whitley Silva MD Referring Physician: Whitley Silva MD Allergies, Adverse Reactions, Alerts Substance Reaction Severity Status penicillin redness Active SUMAtriptan chest tightness Active Medications acetaminophen 325 mg oral tablet 975 mg, By Mouth, Every 6 hours, # 50 tablet, Refills 0, Tot. Refills 0, Maintenance, 02/08/22 18:44:00 EDT, Route to Pharmacy Electronically, [facility]/pharmacy #[id number], Partial fill upon patient request ifthe prescription is for a schedule II opioid drug.,... Start Date: 02/08/22 Status: Ordered Acetaminophen Tablet 975 mg, Tablet, By Mouth, 02/08/22 10:30:00 EDT Start Date: 02/08/22 Stop Date: 02/08/22 Status: Completed amitriptyline 10 mg oral tablet 10 mg, 1, tablet, By Mouth, Daily at bedtime, Refills 0, Maintenance, 02/04/22 10:19:00 EDT, Partial fill upon patient request if the prescription is for a schedule II opioid drug. Start Date: 02/04/22 Status: Ordered docusate-senna 50 mg-187 mg oral tablet 2 tablet, By Mouth, Daily, # 60 tablet, 0 Refills, Maintenance, 02/08/22 18:44:00 EDT, Tablet, [facility]/pharmacy #[id number], Partial fill upon patient request if [...] 02/08/22 18:44:00 EDT, Route to Pharmacy Electronically, [facility]/pharmacy #[id number], Partial fill upon patientrequest if the prescription is for a schedule II op... Start Date: 02/08/22 Status: Ordered Ibuprofen Tablet 600 mg, Tablet, By Mouth, 02/08/22 8:00:00 EDT Start Date: 02/08/22 Stop Date: 02/08/22 Status: Completed Loratadine 10 mg, By Mouth, Daily, Refills [...] opioid drug. Start Date: 01/28/22 Status: Ordered MiraLax oral powder for reconstitution = 17 Gm, By Mouth, Daily, dissolve in water before taking, # 255 Gm, 0 Refills, Maintenance, 02/08/22 18:45:00 EDT, REC Powder, [facility]/pharmacy #[id number], Partial fill upon patient request if the prescription is for a schedule II opioid drug., 17 Gm By Mouth... Start Date: 02/08/22 Status: Ordered Omeprazole = 20 mg, By Mouth, Daily, 0 Refills, Maintenance, 02/04/22 10:17:00 EDT, Partial fill upon patient request if the prescription is for a schedule II opioid drug. Start Date: 02/04/22 Status: Ordered oxyCODONE 5 mg oral tablet 5 mg, 1, tablet, By Mouth, Every 4 hours, PRN, # 5 tablet, Refills 0, Tot. Refills 0, Maintenance, Pain , Severe, 02/08/22 18:44:00 EDT, Route to Pharmacy Electronically, [facility]/pharmacy #[id number], Partial fill upon patient request if the prescription is for... Start Date: 02/08/22 Status: Ordered simethicone 80 mg oral tablet, chewable 160 mg, 2, tablet, Chew, 3 times a day, # 36 tablet, Refills 0, Tot. Refills 0, Maintenance, 02/08/22 18:44:00 EDT, Route to Pharmacy Electronically, [facility]/pharmacy #[id number], Partial fill upon patient request if the prescription is for a schedule II opioid... Start Date: 02/08/22 Status: Ordered Trulicity Pen = 1.5 mg, [...] 11/26/19 Active Type 2 diabetes mellitus(Confirmed) Active Diagnosis Diagnosis Type Effective Dates Health Status Clinical Service Informant DVT - Deep vein thrombosis Discharge Diagnosis 02/05/22 Type 2 diabetes mellitus Discharge Diagnosis 02/05/22 Vital Signs Most recent to oldest [Reference Range]: 1 2 3 Height 157.4 cm (02/08/22 3:16 PM) 157.4 cm (02/08/22 7:34 AM) 157.4 cm (02/07/22 11:10 PM) Weight 66.80 kg (02/05/22 5:13 PM) 66.80 kg (02/05/22 5:00 PM) 64.5 kg (02/05/22 6:39 AM) Oxygen Saturation [94-100 %] 98 % (02/08/22 3:16 PM) 95 % (02/08/22 7:34 AM) 95 % (02/07/22 11:10 PM) Pulse Rate [55-90 bpm] 77 bpm (02/08/22 3:16 PM) 79 bpm (02/08/22 7:34 AM) 78 bpm (02/07/22 11:10 PM) Body Mass Index [18.5-24.99] 26.96 *H* (02/05/22 5:13 PM) 26.03 *H* (02/05/22 6:39 AM) 26.03 *H* (02/04/22 10:44 AM) Blood Pressure [90-138/55-84 mm Hg] 125/85mm Hg (02/08/22 3:16 PM) 126/76mm Hg (02/08/22 7:34 AM) 130/80mm Hg (02/07/22 11:10 PM) Respiratory Rate [16-30 br/min] 18 br/min (02/08/22 3:16 PM) 18 br/min (02/08/22 9:42 AM) 18 br/min (02/08/22 9:41 AM) Temperature [96.8-100.4 DegF] 98.6 DegF (02/08/22 3:16 PM) 98.0 DegF (02/08/22 7:34 AM) 98.1 DegF (02/07/22 11:10 PM) Liters per Minute 6 L/min (02/05/22 1:45 PM) 6 L/min (02/05/22 1:30 PM) Mode of Delivery (Oxygen) Room air (02/08/22 3:16 PM) Room air (02/08/22 7:34 AM) Room air (02/07/22 11:10 PM) Blood pressure sites Arm, left (02/08/22 3:16 PM) Arm, left (02/08/22 7:34 AM) Arm, left (02/07/22 11:10 PM) Temperature Route Oral (02/08/22 3:16 PM) Oral (02/08/22 7:34 AM) Oral (02/07/22 11:10 PM) Dry Weight 66.80 kg (02/05/22 5:13 PM) 64.5 kg (02/04/22 10:44 AM) Weight Obtained Via Standing scale (02/05/22 5:00 PM) Patient/family stated (02/04/22 10:44 AM) Dry Weight Obtained Via Patient/family s tated (02/04/22 10:44 AM) Social History Social History Type Response Smoking Status Former smoker, quit more than 30 days ago entered on: 11/26/21 Sex
--- OUTSIDE RECORDS SUMMARY | 2023-02-18 10:33 | XMS_ITS | Continuity of Care Document ---
Author Name Unknown Organization [facility] Isabelle ashfordREPUBLIC RESOURCES [facility] Address [address], [address]t [place] [address]- Care Team Providers Care Executive Producer Name Role Phone Kyler PERAELS, Randi [id number] Date[facility] 12/[facility] - 03/20/[facility] [place] [employer] [facility] [address], [address] [place], [place] [address] Attending Physician: Whitley Silva MD Referring Physician: Randi Chávez MD Allergies, Adverse Reactions, Alerts Substance Reaction Severity Status penicillin redness Active SUMAtriptan chest tightness Active Medications acetaminophen 325 mg oral tablet 975 mg, By Mouth, Every 6 hours, # 50 tablet, Refills 0, Tot. Refills 0, Maintenance, 02/08/22 18:44:00 EDT, Route to Pharmacy Electronically, [facility]/pharmacy #[id number], Partial fill upon patient request ifthe [...] Refills, Maintenance, 02/08/22 18:44:00 EDT, Tablet, [facility]/pharmacy #[id number], Partial fill upon patient request if [...] 18:44:00 EDT, Route to Pharmacy Electronically, [facility]/pharmacy #[id number], Partial fill upon patientrequest if the prescription [...] 11/26/19 Active Type 2 diabetes mellitus(Confirmed) Active Social History Social History Type Response Smoking Status Former smoker, quit more than 30 days ago entered on: 11/26/21 Sex
--- OUTSIDE RECORDS SUMMARY | 2023-02-18 10:33 | XMS_ITS | Continuity of Care Document ---
Author Name Unknown Organization [facility] Isabelle ashfordOutsparkkyrie [facility] Address [address], [address]t [place] [address]- Care Team Providers Care Sales Branch Manager Name Role Phone Randi Chávez MD Primary Care Physician [id number] Date(s): 02/11/22 - 03/13/22 [facility] [place] Alex[place] [facility] [address], [address]th [place] [address]- Allergies, Adverse Reactions, Alerts Substance Reaction Severity Status penicillin redness Active SUMAtriptan chest tightness Active Medications acetaminophen 325 mg oral tablet 975 mg, By Mouth, Every 6 hours, # 50 tablet, Refills 0, Tot. Refills 0, Maintenance, 02/08/22 18:44:00 EDT, Route to Pharmacy Electronically, [facility]/pharmacy #[id number], Partial fill upon patient request ifthe [...] Refills, Maintenance, 02/08/22 18:44:00 EDT, Tablet, [facility]/pharmacy #[id number], Partial fill upon patient request if [...] 18:44:00 EDT, Route to Pharmacy Electronically, [facility]/pharmacy #[id number], Partial fill upon patientrequest if the prescription [...]
--- OUTSIDE RECORDS SUMMARY | 2023-02-18 10:33 | XMS_ITS | Continuity of Care Document ---
Author Name Unknown Organization [facility] Isabelle ashfordAdvanced Plasma Therap[employer] [facility] Address [address], [address] [place] [address]- Care Team Providers Care Air Traffic Instructor Name Role Phone Randi Chávez MD Primary Care Physician [id number] Date(s): 01/28/22 - 02/04/22 [facility] [place] [employer] [facility] [address], [address] [place], [place] [address] Attending Physician: Whitley Silva MD Referring Physician: Randi Chávez MD Allergies, Adverse Reactions, Alerts Substance Reaction Severity Status penicillin redness Active SUMAtriptan chest tightness Active Medications amitriptyline 10 mg oral tablet 10 mg, 1, tablet, By Mouth, Daily at bedtime, Refills 0, Maintenance, 02/04/22 10:19:00 EDT, Partial fill upon patient request if the prescription is for a schedule II opioid drug. Start Date: 02/04/22 Status: Ordered epi pen epi pen, 0 Refills, Maintenance, 01/28/22 7:55:00 EDT Start Date: 01/28/22 Status: Ordered Loratadine 10 mg, By Mouth, [...] Effective Dates Status Health Status Inform ant Left ovarian cyst(Confirmed) Active DVT - Deep vein thrombosis(Confirmed) 11/26/19 Active Type 2 diabetes mellitus(Confirmed) Active Vital Signs Most recent to oldest [Reference Range]: 1 Weight 64.81 kg (01/28/22 7:56 AM) Pulse Rate [55-90 bpm] 71 bpm (01/28/22 7:56 AM) Blood Pressure [90-138/55-84 mm Hg] 113/ 83mm Hg (01/28/22 7:56 AM) Respiratory Rate [16-30 br/min] 18 br/mi n (01/28/22 7:56 AM) Blood pressure sites Arm, left (01/28/22 7:56 AM) Weight Obtained Via Standing scale (01/28/22 7:56 AM) Social History Social History Type Response Smoking Status Former smoker, quit more than 30 days ago entered on: 11/26/21 Sex
--- OUTSIDE RECORDS SUMMARY | 2023-02-18 10:33 | XMS_ITS | Continuity of Care Document ---
Author Name Unknown Organization [facility] Isabelle ashfordDocbookMDkyrie [facility] Address [address], [address]t [place] [address]- Care Team Providers Care Training Officer Name Role Phone Randi Chávez MD [id number] Date(s[facility] 03/14/22 - 04/13/22 [facility] [place] AlexDocbookMD[employer] [facility] [address], [address]th [place] [address]- Allergies, Adverse Reactions, Alerts Substance Reaction Severity Status penicillin redness Active SUMAtriptan chest tightness Active Medications acetaminophen 325 mg oral tablet 975 mg, By Mouth, Every 6 hours, # 50 tablet, Refills 0, Tot. Refills 0, Maintenance, 02/08/22 18:44:00 EDT, Route to Pharmacy Electronically, [facility]/pharmacy #[id number], Partial fill upon patient request ifthe [...] 0 Refills, Maintenance, 02/08/22 18:44:00 EDT, Tablet, [facility]/pharmacy #[id number], Partial fill upon patient request [...] 02/08/22 18:44:00 EDT, Route to Pharmacy Electronically, [facility]/pharmacy #[id number], Partial fill upon patientrequest if the prescription [...]
--- OUTSIDE RECORDS SUMMARY | 2023-02-18 10:33 | XMS_ITS | Continuity of Care Document ---
Author Name Unknown Organization [facility] Address [address] [place] [address]- Care Team Providers Care Outpatient Therapist Name Role Phone Kyler PERALES, Randi Primary Care Physician Encounter [facility] Date(s): 11/18/21 - 12/18/21 [facility] [address] [place] [id number] Allergies, Adverse Reactions, Alerts Substance Reaction Severity Status penicillin Active SUMAtriptan Active Problem List Condition Effective Dates Status Health Status Inform ant Left ovarian cyst(Confirmed) Active DVT - Deep vein thrombosis(Confirmed) 11/26/19 Active Type 2 diabetes mellitus(Confirmed) Active Social History Social History Type Response Smoking Status Former smoker, quit more than 30 days ago entered on: 11/26/21 Sex
--- OUTSIDE RECORDS SUMMARY | 2023-02-18 10:33 | XMS_ITS | Continuity of Care Document ---
Author Name Unknown Organization [facility] Isabelle ashford[employer] [facility] Address [address], [address] [place] [address]- Care Team Providers Care Account Executive Agribusiness Name Role Phone Randi Chávez MD Primary Care Physician [id number] Date(s): 03/04/22 - 03/11/22 [facility] [place] [employer]iPeeride[employer] [facility] [address], [address] [place], [place] [address] Attending Physician: Whitley Silva MD Allergies, Adverse Reactions, Alerts Substance Reaction Severity Status penicillin redness Active SUMAtriptan chest tightness Active Medications acetaminophen 325 mg oral tablet 975 mg, By Mouth, Every 6 hours, # 50 tablet, Refills 0, Tot. Refills 0, Maintenance, 02/08/22 18:44:00 EDT, Route to Pharmacy Electronically, [facility]/pharmacy #[id number], Partial fill upon patient request [...] Maintenance, 02/08/22 18:44:00 EDT, Tablet, [facility]/pharmacy #[id number], Partial fill upon patient request [...] EDT, Route to Pharmacy Electronically, [facility]/pharmacy #[id number], Partial fill upon patientrequest if the prescription [...] 11/26/19 Active Type 2 diabetes mellitus(Confirmed) Active Procedures Procedure Date Related Diagnosis Body Site Status Colon operation 02/05/22 Completed Salpingectomy 1 02/05/22 Completed 1c/b sigmoid colon Vital Signs Most recent to oldest [Reference Range]: 1 Height 157.4 cm (03/04/22 8:07 AM) Social History Social History Type Response Smoking Status Former smoker, quit more than 30 days ago entered on: 11/26/21 Sex
--- OUTSIDE RECORDS SUMMARY | 2023-02-18 10:33 | XMS_ITS | Continuity of Care Document ---
Author Name Unknown Organization [facility] Isabelle [facility] Address [address], [address] [place] [address]- Care Team Providers Care Training And Development Officer Name Role Phone Randi Chávez MD Primary Care Physician Encounter [facility] Date(s): 11/19/21 - 12/19/21 [facility] [address] [place], [place] [address] Allergies, Adverse Reactions, Alerts Substance Reaction Severity Status penicillin Active SUMAtriptan Active Problem List Condition Effective Dates Status Health Status Inform ant Left ovarian cyst(Confirmed) Active DVT - Deep vein thrombosis(Confirmed) 11/26/19 Active Type 2 diabetes mellitus(Confirmed) Active Procedures Procedure Date Related Diagnosis Body Site Status Tubal ligation 2007 Completed Ovarian cystectomy 2002 [facility] [place] [address] [facility] [address], 1999 and 2006 Social History Social History Type Response Smoking Status Former smoker, quit more than 30 days ago entered on: 11/26/21 Sex
--- OUTSIDE RECORDS SUMMARY | 2023-02-18 10:33 | XMS_ITS | Continuity of Care Document ---
Author Name Unknown Organization [facility] Isabelle [facility] [facility] [facility] Address [address], [address] [place] [address]- Care Team Providers Care Marker Assembler Name Role Phone Kyler PERALES, Randi Primary Care Physician Encounter [facility] Date(s): 11/26/21 - 12/03/21 [facility] Isabel[facility] [address], [address]th [place] [address]- Attending Physician: Whitley Silva MD Referring Physician: Randi Chávez MD Allergies, Adverse Reactions, Alerts Substance Reaction Severity Status penicillin Active SUMAtriptan Active Problem List Condition Effective Dates Status Health Status Inform ant Left ovarian cyst(Confirmed) Active DVT - Deep vein thrombosis(Confirmed) 11/26/19 Active Type 2 diabetes mellitus(Confirmed) Active Vital Signs Most recent to oldest [Reference Range]: 1 Weight 65.90 kg (11/26/21 1:05 PM) Pulse Rate [55-90 bpm] 91 bpm *H* (11/26/21 1:05 PM) Blood Pressure [90-138/55-84 mm Hg] 111/ 89mm Hg (11/26/21 1:05 PM) Respiratory Rate [16-30 br/min] 23 br/mi n (11/26/21 1:05 PM) Blood pressure sites Arm, left (11/26/21 1:05 PM) Weight Obtained Via Standing scale (11/26/21 1:05 PM) Social History Social History Type Response Smoking Status Former smoker, quit more than 30 days ago entered on: 11/26/21 Sex
[2023-02-18] MEDS: Ketorolac Tromethamine 15 MG/ML VIAL IVPUSH (10:58)
[2023-02-18] MEDS: 0.9 % Sodium Chloride 1,000 ML 999 ML IV (10:58)
[2023-02-18] MEDS: ondansetron HCL 4 MG/2 ML VIAL IVPUSH (10:58)
[2023-02-18 11:04] LABS: MANUAL DIFF FLAG NO
[2023-02-18 11:05] LABS: Basophils Absolute Auto 0.1 X10*3/uL (0.0-0.2); Basophils Percent Auto 0.6 % (0-2); Eosinophils Absolute Auto 0.2 X10*3/uL (0.0-0.4); Eosinophils Percent Auto 2.2 % (0-4); Hematocrit 39.2 % (37.0-47.0); Hemoglobin 12.6 g/dl (12.0-16.0); Imm Gran Abs Auto 0.02 X10*3/uL (0.00-0.03); Imm Gran Pct Auto 0.2 % (0.0-0.4); Lymphocytes Absolute Auto 2.8 X10*3/uL (1.2-4.9); Lymphocytes Percent Auto 29.5 % (20-40); Mean Corpuscular HGB Conc 32.1 g/dl (31.0-35.0); Mean Corpuscular Volume 84.1 fL (80.0-98.0); Mean Platelet Volume 10.6 fL (9.4-12.3); Monocytes Absolute Auto 0.9 X10*3/uL (0.1-1.2); Monocytes Percent Auto 9.1 % (2-11); Neutrophils Absolute Auto 5.5 x10*3/uL (2.0-8.3); Neutrophils Percent Auto 58.4 % (45-73); Platelet Count 214 X10*3/uL (160-400); Red Blood Count 4.66 X10*6/uL (4.20-5.50); Red Cell Distribution Width 12.8 % (11.0-16.0); White Blood Count 9.5 X10*3/uL (4.8-10.8)
[2023-02-18 11:07] LABS: Appearance Urine Clear; Color Urine Yellow; Glucose Urine UA Negative (Negative); Leukocyte Esterase Urine Negative (Negative); Nitrite Urine Negative (Negative); PH 5.5 (5.0-9.0); Urine Blood Negative (Negative); Urine Ketones Negative (Negative); Urine Protein Negative (Neg-Trace)
[2023-02-18 11:08] LABS: OBS Int Ctl Valid YES; OBS1 NEGATIVE (NEGATIVE)
[2023-02-18 11:20] LABS: Alanine Aminotransferase 16 U/L (0-31); Albumin Level 4.1 g/dL (3.5-5.0); Alkaline Phosphatase 74 U/L (39-117); Anion Gap 11 (12-20); Aspartate Amino Transferase 21 U/L (5-31); Bilirubin Direct 0.1 mg/dL (0.0-0.5); Bilirubin Total 0.5 mg/dL (0.0-1.0); Blood Urea Nitrogen 15 mg/dL (9-16); Carbon Dioxide 27 mmol/L (22-29); Chloride 106 mmol/L (96-108); Creatinine Clr Calc Pharmacy 80.7; Estimated Glomerular Filt Rate > 60; Glucose Random 109 mg/dL (60-115); Lipase 15 U/L (8-78); Potassium 3.8 mmol/L (3.3-5.1); Sodium 140 mmol/L (135-145); Total Protein 7.2 g/dL (6.5-8.0)
[2023-02-18] MEDS: iohexoL 350 MG/ML 100 ML INFUS..BTL 85 ML IV (11:51)
[2023-02-18 14:23] LABS: CDiff Gene PCR NEGATIVE (Negative)
[2023-02-18 15:00] VITALS: BP 149/92; PULSE 65; RESP 17; O2SAT 98
[2023-02-18 15:23] LABS: Campylobacter Not Detected (Not Detect.); Cryptosporidium Not Detected (Not Detect.); Cyclospora cayetanensis Not Detected (Not Detect.); E. coli EAEC Detected (Not Detect.); E. coli EPEC Not Detected (Not Detect.); E. coli ETEC Not Detected (Not Detect.); E. coli STEC Not Detected (Not Detect.); Entamoeba histolytica Not Detected (Not Detect.); Plesiomonas shigelloides Not Detected (Not Detect.); Salmonella Not Detected (Not Detect.); Shigella sp./EIEC Not Detected (Not Detect.); Vibrio Not Detected (Not Detect.); Vibrio Cholerae Not Detected (Not Detect.); Yersinia enterocolitica Not Detected (Not Detect.)
[2023-02-18 15:24] LABS: Adenovirus F 40/41 Not Detected (Not Detect.); Astrovirus Not Detected (Not Detect.); Giardia lamblia Not Detected (Not Detect.); Norovirus GI/GII Not Detected (Not Detect.); Rotavirus A Not Detected (Not Detect.); Sapovirus Not Detected (Not Detect.)
== END 2023-02-18 15:03 | disposition home or self-care (01) ==
PROVIDERS: Physician Assistant; Emergency Provider Emergency Medicine; PCP Family Medicine
DX: A05.9 Bacterial foodborne intoxication, unspecified (principal); R19.7 Diarrhea, unspecified; R11.0 Nausea; R10.9 Unspecified abdominal pain; Z79.899 Other long term (current) drug therapy; E11.9 Type 2 diabetes mellitus without complications; K21.9 Gastro-esophageal reflux disease without esophagitis
CPT/HCPCS: 36415; 74177; 80048; 80076; 81003; 82272; 83690; 83735; 85025; 87493; 87507; 96361; 96374; 96375; 99284; J1885; J2405; Q9967

== ENCOUNTER 2023-04-30 14:16 | Outpatient (REF) | payer MEDICAID, SELFPAY | END 2023-04-30 14:17 | disposition home or self-care (01) | LOC: HO.HHCL 14:16 | PROVIDERS: Visit Provider Registered Nurse | DX: R30.0 Dysuria (principal) | CPT/HCPCS: 87086; 87088; 87186 ==

== ENCOUNTER 2023-05-19 09:45 | Outpatient (REF) | payer MEDICAID, SELFPAY ==
[2023-05-21 14:43] LABS: TS Negative Control Passed; TS Panel A 0; TS Panel B 0; TS Positive Control Passed; TSpotTB Negative (Negative)
== END 2023-05-19 09:46 | disposition home or self-care (01) ==
LOC: HO.HHCL 09:45
PROVIDERS: Visit Provider Internal Medicine
DX: Z11.1 Encounter for screening for respiratory tuberculosis (principal)
CPT/HCPCS: 36415; 86481

== ENCOUNTER 2023-05-29 18:25 | Outpatient (REF) | payer MEDICAID, SELFPAY ==
[2023-05-31 11:20] LABS: BV Int Neg Control Negative (Negative); BV Int Pos Control Positive (Positive)
== END 2023-05-29 18:26 | disposition home or self-care (01) ==
LOC: HO.LNP 18:25
PROVIDERS: Visit Provider Emergency Medicine
DX: B37.9 Candidiasis, unspecified (principal)
CPT/HCPCS: 87480; 87510; 87660

== ENCOUNTER 2023-06-22 16:19 | Outpatient (REF) | payer MEDICAID, SELFPAY ==
[2023-06-22 17:28] LABS: MANUAL DIFF FLAG NO
[2023-06-22 17:32] LABS: Basophils Absolute Auto 0.1 X10*3/uL (0.0-0.2); Basophils Percent Auto 0.9 % (0-2); Eosinophils Absolute Auto 0.1 X10*3/uL (0.0-0.4); Eosinophils Percent Auto 1.3 % (0-4); Hematocrit 35.4 % (37.0-47.0); Hemoglobin 11.3 g/dl (12.0-16.0); Imm Gran Abs Auto 0.02 X10*3/uL (0.00-0.03); Imm Gran Pct Auto 0.3 % (0.0-0.4); Lymphocytes Absolute Auto 2.5 X10*3/uL (1.2-4.9); Lymphocytes Percent Auto 31.9 % (20-40); Mean Corpuscular HGB Conc 31.9 g/dl (31.0-35.0); Mean Corpuscular Hemoglobin 26.2 pg (27.0-33.0); Mean Corpuscular Volume 81.9 fL (80.0-98.0); Mean Platelet Volume 11.5 fL (9.4-12.3); Monocytes Absolute Auto 0.6 X10*3/uL (0.1-1.2); Monocytes Percent Auto 7.3 % (2-11); Neutrophils Absolute Auto 4.5 x10*3/uL (2.0-8.3); Neutrophils Percent Auto 58.3 % (45-73); Platelet Count 249 X10*3/uL (160-400); Red Blood Count 4.32 X10*6/uL (4.20-5.50); Red Cell Distribution Width 13.8 % (11.0-16.0); White Blood Count 7.7 X10*3/uL (4.8-10.8)
[2023-06-22 18:15] LABS: Microalbum/Creatinine Ratio Ur 3.6 ug/mg cr (<30)
[2023-06-22 18:20] LABS: Iron 71 mcg/dL (30-160); Percent Iron Saturation 21 % (15-50); Total Iron Binding Capacity 341 mcg/dL (228-428); Unsaturated Iron Binding 270 ug/dL
[2023-06-22 18:34] LABS: Ferritin 13 ng/mL (10-250)
== END 2023-06-22 16:20 | disposition home or self-care (01) ==
LOC: HO.CHCLDS 16:19
PROVIDERS: Visit Provider Family Medicine
DX: D50.9 Iron deficiency anemia, unspecified (principal); E11.9 Type 2 diabetes mellitus without complications
CPT/HCPCS: 36415; 82043; 82570; 82728; 83540; 85025

== ENCOUNTER 2023-06-30 15:12 | Outpatient (AMB) | payer MEDICAID, SELFPAY ==
--- NOTE | 2023-06-30 15:18 | A.OFFVIS_ITS ---
Intake Vital Signs 06/30/23 15:19 Height 5 ft 2 in Weight 152 lb BMI 27.8 BP 114/69 Blood Pressure Location Rt brachial Position Sitting Pulse 82 Intake Visit Reasons: Rt neck mass Intake Note: Patient referred for growth on rt post neck. Has been present for 2 yrs. C/o pain. Denies oozing, bleeding, itch. Has u/s scheduled on 07-09-23. Therapeutic Radiologist Required: No Accompanied by: Daughter Allergies Penicillins [PENICILLINS] Allergy (Unknown, Verified 06/30/23 15:21) RASH sumatriptan [SUMATRIPTAN] Allergy (Unknown, Verified 06/30/23 15:21) DIFF BREATHING grass pollen Allergy (Verified 06/30/23 15:21) Difficulty Breathing mite-Dermatophagoides farinae, stacey [dust mite - [place]] Allergy (Verified 06/30/23 15:21) Difficulty Breathing Bunnys Allergy (Unknown, Uncoded 06/30/23 15:21) Rash/red eyes Cats Allergy (Unknown, Uncoded 06/30/23 15:21) Rash/red eye Dogs Allergy (Unknown, Uncoded 06/30/23 15:21) Rash/red eyes Medication List - Last Reconciled 06/30/23 by Lul Mendoza MD amitriptyline 1 tab PO BEDTIME hruqsoowct-jekcavoveolgl-rnjr 50-325-40 mg 1 - 2 tabs PO Q4H PRN dulaglutide (Trulicity) 1.5 mg subcut QWEEK fluconazole (Diflucan) 150 mg PO Q3D 2 doses ibuprofen 600 mg PO Q6H PRN loratadine 1 tab PO DAILY metformin 1 tab PO BID nitrofurantoin macrocrystal 100 mg PO BID 7 days omeprazole 1 cap PO DAILY HPI HPI Comments History of Present Illness Details Patient presents with daughter for evaluation of 2 posterior neck processes. Patient has a soft tissue mass of the posterior neck which he has had indeterminate time. She thinks it is increasing in size, becoming more symptomatic. She also has a superficial skin lesion just below/inferior to the lipoma of the posterior neck which she also would like removed. Chart was reviewed patient evaluated [facility] Medical History Cyst of ovary, left Migraine Iron deficiency GERD (gastroesophageal reflux disease) DVT (deep venous thrombosis) Diabetes Surgical History H/O resection of large bowel Hx of tubal ligation Hx of section Family History Paternal Grandfather Cancer Paternal Uncle Stomach cancer Father Diabetes Heart attack Mother Diabetes Heart attack Social History Household Members: Children Housing: Apartment Alcohol intake: never Patient Tobacco Use Status: Former Tobacco user Quit Date: 2018 Tobacco use type: Cigarette service: No Current occupational status: employed Physical Exam Vital Signs: Last Vital Signs Pulse 82 06/30/23 15:19 BP 114/69 06/30/23 15:19 BMI result Body Mass Index 27.8 Neck Other: Posterior neck demonstrates a approximately 3 x 2 cm lipoma. This approximately 1 x 1 cm superficial skin lesion. Office Procedures Excision Details: Risks, benefits, alternatives of excision of lipoma and of skin lesion reviewed the patient and included but not limited to bleeding, infection, recurrence, numbness, pain, scarring the patient was to proceed. All questions were answered. Consent was signed. After appropriate positioning, patient underwent 1% lidocaine and Betadine prep to the posterior neck lipoma and skin lesion. The lipoma was commenced 1st with a transverse incision was made and carried down through skin, subcutaneous tissue, were enucleation of approximately 3 x 2 cm lipoma was uneventfully performed. Specimen sent to pathology. Wound was irrigated, secured hemostasis, and closed using running subcuticular 3-0 Vicryl suture followed by Steri-Strips. Next the skin lesion measured approximately 1 x 1 cm underwent a tangential excision. Specimen sent to pathology. Wound base was cauterized with silver nitrate followed by bacitracin and sterile dressing. Patient tolerated procedure well. 29575-kwmaw/arms/legs 0.6-1cm 57602-onihs/arms/legs 2.1-3cm Procedure code (CPT) selection complete Office Meds lidocaine 1 %-epinephrine 1:100,000 injection solution Performing Provider: Lul Mendoza MD Performing Location: [facility] [place] [facility] Administered by: Lul Mendoza MD on 06/30/23 15:51 Dose Route Admin Location Dispensed Lot Number Expiration Date [facility] Combat Rifle Crewmember 10 mL Infiltration 10 mL Assessment & Plan Assessment & Plan (1) Skin lesion of back: Code(s): L98.9 - Disorder of the skin and subcutaneous tissue, unspecified Plan: Patient has been given local instructions, including ice periodically today and tomorrow, may shower in 2 days, remove outside dressing only 2 days regarding lipoma, leaving Steri-Strips intact. Bacitracin to skin lesion site q.day, no strenuous activities, patient will see me as directed or p.r.n.. (2) Lipoma: Code(s): D17.9 - Benign lipomatous neoplasm, unspecified Orders: Orders AMB Excision Today D17.9 - Benign lipomatous neoplasm, unspecified, L98.9 - Disorder of the skin and subcutaneous tissue, unspecified Coding Level of Care Code New Pt Level 5 (72666) Diagnoses Skin lesion of back L98.9 Lipoma D17.9 CPT Codes Trunk/Arms/Legs - CPT: 74662-pycho/arms/legs 0.6-1cm ([id number]) Trunk/Arms/Legs - CPT: 86406-wyluw/arms/legs 2.1-3cm ([id number])
[2023-06-30 15:19] VITALS: BP 114/69; PULSE 82; BMI 27.8
== END 2023-06-30 16:11 | disposition home or self-care (01) ==
PROVIDERS: PCP Family Medicine; Visit Provider Surgery
DX: L98.9 Disorder of the skin and subcutaneous tissue, unspecified (principal); D17.0 Benign lipomatous neoplasm of skin and subcutaneous tissue of head, face and neck; L72.0 Epidermal cyst
CPT/HCPCS: 11102; 11403; 99204

== ENCOUNTER 2023-06-30 15:12 | Outpatient (REF) | payer MEDICAID, SELFPAY | END 2023-06-30 15:13 | disposition home or self-care (01) | LOC: HO.LNP 15:12 | PROVIDERS: PCP Family Medicine; Visit Provider Surgery | DX: D17.0 Benign lipomatous neoplasm of skin and subcutaneous tissue of head, face and neck (principal); L98.9 Disorder of the skin and subcutaneous tissue, unspecified; Z79.899 Other long term (current) drug therapy | CPT/HCPCS: 11102; 11403; 88304; 88305; 88312; 99202 ==

== ENCOUNTER 2023-07-07 15:19 | Outpatient (AMB) | payer MEDICAID, SELFPAY ==
--- NOTE | 2023-07-07 15:21 | A.OFFVIS_ITS ---
Intake Vital Signs 07/07/23 15:26 Height 5 ft 2 in Weight 151 lb 15.998 oz BMI 27.8 BP 107/68 Blood Pressure Location Rt brachial Position Sitting Pulse 82 Intake Visit Reasons: S/P Exc Rt neck mass Intake Note: This patient presents for a post-op assessment status post excision right neck mass. Patient c/o; reports no changes or complaints at this time. City Letter Carrier Required: No Accompanied by: Other Relationship Allergies Penicillins [PENICILLINS] Allergy (Unknown, Verified 07/07/23 15:27) RASH sumatriptan [SUMATRIPTAN] Allergy (Unknown, Verified 07/07/23 15:27) DIFF BREATHING grass pollen Allergy (Verified 07/07/23 15:27) Difficulty Breathing mite-Dermatophagoides farinae, stacey [dust mite - [place]] Allergy (Verified 07/07/23 15:27) Difficulty Breathing Bunnys Allergy (Unknown, Uncoded 07/07/23 15:27) Rash/red eyes Cats Allergy (Unknown, Uncoded 07/07/23 15:27) Rash/red eye Dogs Allergy (Unknown, Uncoded 07/07/23 15:27) Rash/red eyes HPI HPI Comments History of Present Illness Details Patient presents for follow-up. She has no wound issues or complaints. Pathology is benign for the 2 lesions. [facility] Medical History Cyst of ovary, left Migraine Iron deficiency GERD (gastroesophageal reflux disease) DVT (deep venous thrombosis) Diabetes Surgical History H/O resection of large bowel Hx of tubal ligation Hx of section Family History Paternal Grandfather Cancer Paternal Uncle Stomach cancer Father Diabetes Heart attack Mother Diabetes Heart attack Social History Household Members: Children Housing: Apartment Alcohol intake: never Patient Tobacco Use Status: Former Tobacco user Quit Date: 2018 Tobacco use type: Cigarette service: No Current occupational status: employed Physical Exam Vital Signs: Last Vital Signs Pulse 82 07/07/23 15:26 BP 107/68 10/31/23 15:26 BMI result Body Mass Index 27.8 Neck Other: Both posterior neck wounds are healing uneventfully. Assessment & Plan Assessment & Plan (1) Skin lesion of back: Code(s): L98.9 - Disorder of the skin and subcutaneous tissue, unspecified (2) Lipoma: Code(s): D17.9 - Benign lipomatous neoplasm, unspecified Qualifiers: Lipoma location: neck Qualified Code(s): D17.0 - Benign lipomatous neoplasm of skin and subcutaneous tissue of head, face and neck Plan Patient has been given local wound instructions, and will follow-up p.r.n.. Coding Level of Care Code Global (04815) Diagnoses Skin lesion of back L98.9 Lipoma of neck D17.0 Lipoma location: neck
[2023-07-07 15:26] VITALS: BP 107/68; PULSE 82; BMI 27.8
== END 2023-07-07 15:29 | disposition home or self-care (01) ==
PROVIDERS: PCP Family Medicine; Visit Provider Surgery
DX: L98.9 Disorder of the skin and subcutaneous tissue, unspecified (principal); D17.0 Benign lipomatous neoplasm of skin and subcutaneous tissue of head, face and neck
CPT/HCPCS: 99024

== ENCOUNTER → 2023-07-07 15:19 | Outpatient (BNVA) | payer MEDICAID, SELFPAY | PROVIDERS: PCP Family Medicine; Visit Provider Surgery | DX: D17.9 Benign lipomatous neoplasm, unspecified (principal); L98.9 Disorder of the skin and subcutaneous tissue, unspecified ==

== ENCOUNTER 2023-08-10 07:31 | Emergency (ER) | payer MEDICAID, SELFPAY ==
[2023-08-10 07:41] VITALS: BP 116/72; PULSE 70; RESP 16; TEMP 36.3; O2SAT 99; BMI 28.0
[2023-08-10 07:59] LABS: MANUAL DIFF FLAG NO
[2023-08-10 08:04] LABS: Basophils Percent Auto 0.5 % (0-2); Eosinophils Absolute Auto 0.1 X10*3/uL (0.0-0.4); Eosinophils Percent Auto 0.9 % (0-4); Hematocrit 36.9 % (37.0-47.0); Hemoglobin 11.8 g/dl (12.0-16.0); Imm Gran Abs Auto 0.02 X10*3/uL (0.00-0.03); Imm Gran Pct Auto 0.3 % (0.0-0.4); Lymphocytes Absolute Auto 1.7 X10*3/uL (1.2-4.9); Lymphocytes Percent Auto 21.4 % (20-40); Mean Corpuscular Hemoglobin 25.9 pg (27.0-33.0); Mean Corpuscular Volume 80.9 fL (80.0-98.0); Mean Platelet Volume 10.3 fL (9.4-12.3); Monocytes Absolute Auto 0.4 X10*3/uL (0.1-1.2); Monocytes Percent Auto 5.7 % (2-11); Neutrophils Absolute Auto 5.5 x10*3/uL (2.0-8.3); Neutrophils Percent Auto 71.2 % (45-73); Platelet Count 214 X10*3/uL (160-400); Red Blood Count 4.56 X10*6/uL (4.20-5.50); Red Cell Distribution Width 14.1 % (11.0-16.0); White Blood Count 7.8 X10*3/uL (4.8-10.8)
[2023-08-10 08:15] LABS: Alanine Aminotransferase 18 U/L (0-31); Albumin Level 3.7 g/dL (3.5-5.0); Alkaline Phosphatase 68 U/L (39-117); Anion Gap 12 (12-20); Aspartate Amino Transferase 19 U/L (5-31); Bilirubin Total 0.3 mg/dL (0.0-1.0); Blood Urea Nitrogen 18 mg/dL (9-16); Calcium 8.5 mg/dL (8.4-10.2); Carbon Dioxide 20 mmol/L (22-29); Chloride 110 mmol/L (96-108); Creatinine Clr Calc Pharmacy 79.3; Estimated Glomerular Filt Rate > 60; Glucose Random 180 mg/dL (60-115); Potassium 3.6 mmol/L (3.3-5.1); Sodium 138 mmol/L (135-145); Total Protein 6.6 g/dL (6.5-8.0)
--- NOTE | 2023-08-10 10:53 | PC.NURSE ---
labs obtained/sent to lab.
[2023-08-10 11:14] LABS: IDNOW Serial# 58CA691E; Influenza A Negative (Negative); Influenza B2 Negative (Negative)
[2023-08-10 11:15] LABS: COVID-19 Test Negative (Negative); IDNOW Serial# BCCEAD1C
--- NOTE | 2023-08-10 12:32 | ED.NAVMDI ---
HPI - Nausea/Vomiting/Diarrhea General Chief complaint: Nausea/Vomiting/Diarrhea Stated complaint: diarrhea Time Seen by Provider: 08/10/23 10:18 Source: patient Mode of arrival: ambulatory Limitations: no limitations History of Present Illness HPI Narrative: This is a 47-year-old female history of obesity, anemia presenting to the emergency department with diarrhea and intermittent stomach pains/ cramping throughout, she reports this is all worse after eating, she is also having increased associated gas X5 days. Reports she thinks this started after she ate which a resort Taco from a food cart on Thursday, 6 days ago. Daughter at home with similar sx . Nausea, vomiting, abdominal pain headache, vision changes, chest pain, shortness of breath, fevers and chills. Related Data Home Medications Medication Instructions Recorded Confirmed abtqlqdjbk-vhbgreskbotln-gwulgtbo 1 - 2 tab PO Q4H PRN migraine 07/02/21 09/03/21 50 mg-325 mg-40 mg tablet dulaglutide 1.5 mg/0.5 mL 1.5 mg subcut QWEEK 07/02/21 09/03/21 subcutaneous pen injector (Trulicity) loratadine 10 mg tablet 1 tab PO DAILY 07/02/21 09/03/21 metformin 500 mg tablet 1 tab PO BID 07/02/21 09/03/21 omeprazole 20 mg capsule,delayed 1 cap PO DAILY 07/02/21 09/03/21 release amitriptyline 10 mg tablet 1 tab PO BEDTIME headache 03/12/22 03/12/22 Previous Rx's Medication Instructions Recorded ibuprofen 600 mg tablet 600 mg PO Q6H PRN fever or pain 11/13/21 #60 tabs fluconazole 150 mg tablet 150 mg PO Q3D 2 doses #2 tabs 05/19/22 (Diflucan) nitrofurantoin macrocrystal 100 mg 100 mg PO BID 7 days #14 caps 05/19/22 capsule fluconazole 150 mg tablet 150 mg PO Q3D 2 doses #2 tabs 08/10/23 loperamide 2 mg tablet 2 mg PO Q6H PRN loose stool #14 08/10/23 tabs Allergies Allergy/AdvReac Type Severity Reaction Status Date / Time Penicillins [PENICILLINS] Allergy Unknown RASH Verified 08/10/23 07:40 sumatriptan [SUMATRIPTAN] Allergy Unknown DIFF Verified 08/10/23 07:40 BREATHING grass pollen Allergy Difficulty Verified 08/10/23 07:40 Breathing mite-Dermatophagoides Allergy Difficulty Verified 08/10/23 07:40 farinae, stacey Breathing [dust mite - [place]] Bunnys Allergy Unknown Rash/red Uncoded 08/10/23 07:40 eyes Cats Allergy Unknown Rash/red Uncoded 08/10/23 07:40 eye Dogs Allergy Unknown Rash/red Uncoded 08/10/23 07:40 eyes Review of Systems Review of Systems: Constitutional : No Weight loss, No Fever, No Chills, No Fatigue, No Malaise ENT/Mouth : No sore throat, No Rhinorrhea Eyes: No Eye Pain, No Swelling, No Redness Cardiovascular : No Chest Pain, No SOB, No Dyspnea on Exertion, No Orthopnea, No Edema, No Palpitations Respiratory : No Cough, No Sputum, No Wheezing Gastrointestinal : No Nausea, No Vomiting, + Diarrhea, No Constipation, + abdominal Pain, No Hematochezia, No Melena Genitourinary : No Dysuria, No Urinary Frequency, No Hematuria, Musculoskeletal : No joint pain, No Myalgias, No Joint Swelling Skin : No Skin Lesions, No rash Neuro : No Weakness, No Numbness, No Dizziness, No Headache Psych : No Anxiety/Panic, No Depression All other systems reviewed and are negative Yes all other systems are reviewed and are negative [facility] Past Medical History Attestation statement: The following information was validated with the patient. Source: old records reviewed and nursing notes reviewed Medical History Cyst of ovary, left Migraine Iron deficiency GERD (gastroesophageal reflux disease) DVT (deep venous thrombosis) Diabetes Surgical History H/O resection of large bowel Hx of tubal ligation Hx of section Family History Family History Paternal Grandfather Cancer Paternal Uncle Stomach cancer Father Diabetes Heart attack Mother Diabetes Heart attack Social History Social History Household Members: Children Housing: Apartment Alcohol intake: never Patient Tobacco Use Status: Former Tobacco user Quit Date: 2018 Tobacco use type: Cigarette Smoked in Last 30 Days: No Use of substances other than those prescribed or required for medical reasons: No Advance Directives: No Advance Directives Information Provided: No Patient : No service: No Current occupational status: employed Physical Exam Vital Signs: Vital Signs: Last Vital Signs Temp 97.3 F 08/10/23 07:41 Pulse 70 08/10/23 07:41 Resp 16 08/10/23 07:41 BP 116/72 08/10/23 07:41 Pulse Ox 99 08/10/23 07:41 O2 Del Method Room Air 08/10/23 07:41 BMI result Body Mass Index 28.0 vss Appearance: Alert.? Oriented X3.? No acute distress.? Head: Normocephalic, atraumatic, no step-offs or deformities Eyes: Pupils equal, round and reactive to light.? ENT: Pharynx normal.? Neck: Normal inspection.? Neck supple.? CVS: Normal heart rate and rhythm.? Pulses normal.? Respiratory: No respiratory distress.? Breath sounds normal.? Abdomen: Soft and very mild discomfort with palpation of abdomen throughout. Normoactive bowel sounds. No rebound tenderness negative Rovsing, Rodriguez's, obturator and psoas..? Skin: Skin warm and dry.? Normal skin color.? Normal skin turgor.? Extremities: No lower extremity edema.? No calf ttp. 5/5 strength to bilateral upper and lower extremities Back: No midline tenderness, no C-spine tenderness, full range of motion, no CVA tenderness bilaterally Neuro: Oriented X 3.? No motor deficit.? No sensory deficit. CN 2-12 intact Course Reevaluation(s) Reevaluation #1: CBC appears to be around patient's baseline with a normocytic anemia. Chemistry with no acute findings requiring acute intervention, BUN slightly elevated likely secondary to poor p.o. intake/dehydration. Normal transaminases. Flu/COVID negative. UA and urine preg pending Time: 12:52 Reevaluation #2: Patient's UA without infection. Urine negative. At this time I suspect viral illness. Educated patient on diagnosis and treatment plan, answered all question, patient verbalizes understanding. At this time patient will be discharged home, advised to return with new or worsening symptoms. Educated on worrisome signs and symptoms and when to return. At this time I feel comfortable discharge home. Time: 13:49 Reevaluation #3: Prior to leaving patient informed me that she typically gets yeast infections from using the clean-catch wipes and requested medication for home with needed. Will send fluconazole. Normal hepatic function Medical Decision Making Medical Decision Making [facility] Narrative: 47-year-old female presents with diarrhea since Thursday thinks it started after eating a chorizo Taco from a food cart. Daughter at home sick with similar symptoms Physical examination with Soft and very mild discomfort with palpation of abdomen throughout. Normoactive bowel sounds. No rebound tenderness negative Rovsing, Rodriguez's, obturator and psoas..? History and physical exam concerning for possible food poisoning versus gastroenteritis versus viral illness. Unlikely obstruction, acute abdomen, diverticulitis, appendicitis, pancreatitis, cholecystitis, choledocholithiasis, cholangitis. Other differentials include IBS an IBD. Plan at this time labs, viral test Differential Diagnosis Differential Diagnoses: The differential diagnosis associated with the presentation includes History and physical exam concerning for possible food poisoning versus gastroenteritis versus viral illness. Unlikely obstruction, acute abdomen, diverticulitis, appendicitis, pancreatitis, cholecystitis, choledocholithiasis, cholangitis. Other differentials include IBS an IBD. Admission/Observation Consideration of admission/observation: Escalation of care including admission/observation considered Unlikely Lab Data [facility] Lab Attestation statement: I reviewed the patient's lab results. 08/10/23 07:55 08/10/23 07:55 Labs: Lab Results 08/10/23 08/10/23 08/10/23 Range/Units 07:55 10:49 13:30 WBC 7.8 (4.8-10.8) X10*3/uL RBC 4.56 (4.20-5.50) X10*6/uL Hgb 11.8 L (12.0-16.0) g/dl Hct 36.9 L (37.0-47.0) % MCV 80.9 (80.0-98.0) fL MCH 25.9 L (27.0-33.0) pg MCHC 32.0 (31.0-35.0) g/dl RDW 14.1 (11.0-16.0) % Plt Count 214 (160-400) X10*3/uL MPV 10.3 (9.4-12.3) fL Immature Gran % (Auto) 0.3 (0.0-0.4) % Neut % (Auto) 71.2 (45-73) % Lymph % (Auto) 21.4 (20-40) % [place] % (Auto) 5.7 (2-11) % Eos % (Auto) 0.9 (0-4) % Baso % (Auto) 0.5 (0-2) % Lymph # (Auto) 1.7 (1.2-4.9) X10*3/uL [place] # (Auto) 0.4 (0.1-1.2) X10*3/uL Eos # (Auto) 0.1 (0.0-0.4) X10*3/uL Baso # (Auto) 0.0 (0.0-0.2) X10*3/uL Abs Immat Gran (auto) 0.02 (0.00-0.03) X10*3/uL Absolute Neuts (auto) 5.5 (2.0-8.3) x10*3/uL Absolute Nucleated RBC 0.000 (0.0-0.012) X10*3/uL Nucleated RBC % (auto) 0.0 (0.0-0.2) /100WBC Sodium 138 (135-145) mmol/L Potassium 3.6 (3.3-5.1) mmol/L Chloride 110 H (96-108) mmol/L Carbon Dioxide 20 L (22-29) mmol/L Anion Gap 12 (12-20) BUN 18 H (9-16) mg/dL Creatinine 0.80 (0.5-1.4) mg/dL Estim Creat Clear Calc 79.3 Estimated GFR > 60 Random Glucose 180 H (60-115) mg/dL Calcium 8.5 (8.4-10.2) mg/dL Total Bilirubin 0.3 (0.0-1.0) mg/dL AST 19 (5-31) U/L ALT 18 (0-31) U/L Alkaline Phosphatase 68 (39-117) U/L Total Protein 6.6 (6.5-8.0) g/dL Albumin 3.7 (3.5-5.0) g/dL Urine Color Yellow Urine Appearance Clear Urine pH 5.5 (5.0-9.0) Ur Specific [place] >= 1.030 H (1.005-1.025) Urine Protein Negative (Neg-Trace) mg/dL Urine Glucose (UA) Negative (Negative) mg/dL Urine Ketones Negative (Negative) mg/dL Urine Blood Trace (Negative) Urine Nitrite Negative (Negative) Ur Leukocyte Esterase Negative (Negative) Urine RBC 0-2 (0-2) /HPF Urine WBC 0-5 (0-5) /HPF Ur Squamous Epith Cells 0-2 (0-2) /HPF Urine Bacteria None Seen (None Seen) Hyaline Casts 0-2 (0-2) /LPF Urine Test NEGATIVE (NEGATIVE) COVID-19 (RICKY) Negative (Negative) COVID-19 Clin Com See Note Influenza Type A (CHUYITA) Negative (Negative) Influenza Type B ([place]) Negative (Negative) Influenza A & B Note See Note Tests considered The following testing was considered but not selected: Specialty test negative, labs without leukocytosis, on exam initially had very mild tenderness re-evaluation no tenderness to palpation no indication for imaging at this time. I do not suspect a surgical abdomen. No signs of appendicitis, diverticulitis, pancreatitis, cholecystitis or obstruction at this time. Likely viral Prescription Management I considered prescription management with: Other (loperamide ) Chronic Conditions Patient?s care impacted by: Other (obesity ) Discharge Plan Discharge Clinical Impression: Gastroenteritis Patient Disposition: Home, Self-Care Instructions: Gastroenteritis (ED), Acute Diarrhea (ED), Nutrition Tips for Relief of Diarrhea (ED) Additional Instructions: Take your medications as prescribed. If you were prescribed antibiotics today, it is important that you take your medication to their entirety, do not skip any doses, do not finish them early. Follow-up with your primary care provider this week. Return to the emergency department with new or worsening symptoms. Such as fevers, chills, chest pain, shortness of breath, nausea, vomiting, dizziness, headache, vision changes, lethargy In case of emergency call 911 Prescriptions: New loperamide 2 mg tablet 2 mg PO Q6H PRN (Reason: loose stool) Qty: 14 0RF fluconazole 150 mg tablet 150 mg PO Q3D Qty: 2 0RF No Action nitrofurantoin macrocrystal 100 mg capsule 100 mg PO BID 7 Days Qty: 14 0RF Rx Instructions: must administer with a meal/food fluconazole [Diflucan] 150 mg tablet 150 mg PO Q3D Qty: 2 0RF metformin 500 mg tablet 1 tab PO BID bhnutneayp-eejirwlmdttvl-sfxt 50-325-40 mg tablet 1 - 2 tab PO Q4H PRN (Reason: migraine) omeprazole 20 mg capsule,delayed release(DR/EC) 1 cap PO DAILY loratadine 10 mg tablet 1 tab PO DAILY Trulicity 1.5 mg/0.5 mL pen injector 1.5 mg subcut QWEEK amitriptyline 10 mg tablet 1 tab PO BEDTIME ibuprofen 600 mg tablet 600 mg PO Q6H PRN (Reason: fever or pain) Qty: 60 0RF Referrals: Randi Chávez MD [Primary Care Provider] - 2 days Stand Alone Forms: Work/School Release
[2023-08-10 13:40] LABS: Appearance Urine Clear; Color Urine Yellow; Glucose Urine UA Negative (Negative); Leukocyte Esterase Urine Negative (Negative); Nitrite Urine Negative (Negative); PH 5.5 (5.0-9.0); Specific Gravity - Urine >= 1.030 (1.005-1.025); UMIC TRIGGER UACC YES; Urine Blood Trace (Negative); Urine Ketones Negative (Negative); Urine Protein Negative (Neg-Trace)
[2023-08-10 13:46] LABS: UPreg QC Valid YES; Urine Pregnancy NEGATIVE (NEGATIVE)
[2023-08-10 13:47] LABS: Bacteria Urine None Seen (None Seen); Hyaline Casts Urine 0-2 /LPF (0-2); RBC Urine 0-2 /HPF (0-2); Squamous Epithelial Cell Urine 0-2 /HPF (0-2); WBC Urine 0-5 /HPF (0-5)
== END 2023-08-10 15:38 | disposition home or self-care (01) ==
PROVIDERS: Physician Assistant; Emergency Provider Emergency Medicine; PCP Family Medicine
DX: K52.9 Noninfective gastroenteritis and colitis, unspecified (principal); R11.2 Nausea with vomiting, unspecified; R25.2 Cramp and spasm; Z11.52 Encounter for screening for COVID-19; Z20.822 Contact with and (suspected) exposure to COVID-19; Z79.899 Other long term (current) drug therapy
CPT/HCPCS: 36415; 80053; 81001; 81025; 85025; 87502; 87635; 99283; 99284

== ENCOUNTER 2023-10-12 19:01 | Outpatient (REF) | payer MEDICAID, SELFPAY | END 2023-10-12 19:02 | disposition home or self-care (01) | LOC: HO.HHCLNP 19:01 | PROVIDERS: Visit Provider Emergency Medicine | DX: R30.0 Dysuria (principal) | CPT/HCPCS: 87086 ==

== ENCOUNTER 2023-11-28 09:36 | Outpatient (REF) | payer MEDICAID, SELFPAY | END 2023-11-28 09:37 | disposition home or self-care (01) | LOC: HO.MAMMO 09:36 | PROVIDERS: PCP Family Medicine; Visit Provider Family Medicine | DX: Z12.31 Encounter for screening mammogram for malignant neoplasm of breast (principal) | CPT/HCPCS: 77063; 77067 ==

== ENCOUNTER → 2023-11-28 09:45 | Outpatient (BNV) | payer MEDICAID, SELFPAY | PROVIDERS: PCP Family Medicine; Visit Provider Radiology Diagnostic Radiology | DX: Z12.31 Encounter for screening mammogram for malignant neoplasm of breast (principal) | CPT/HCPCS: 77063; 77067 ==

== ENCOUNTER 2023-12-30 08:25 | Outpatient (REF) | payer MEDICAID, SELFPAY ==
[2023-12-30 14:53] LABS: MANUAL DIFF FLAG NO
[2023-12-30 14:55] LABS: Basophils Absolute Auto 0.1 X10*3/uL (0.0-0.2); Basophils Percent Auto 0.7 % (0-2); Eosinophils Absolute Auto 0.2 X10*3/uL (0.0-0.4); Eosinophils Percent Auto 2.5 % (0-4); Hematocrit 36.6 % (37.0-47.0); Hemoglobin 11.5 g/dl (12.0-16.0); Imm Gran Abs Auto 0.02 X10*3/uL (0.00-0.03); Imm Gran Pct Auto 0.3 % (0.0-0.4); Lymphocytes Absolute Auto 1.5 X10*3/uL (1.2-4.9); Mean Corpuscular HGB Conc 31.4 g/dl (31.0-35.0); Mean Corpuscular Hemoglobin 24.9 pg (27.0-33.0); Mean Corpuscular Volume 79.4 fL (80.0-98.0); Mean Platelet Volume 11.7 fL (9.4-12.3); Monocytes Absolute Auto 0.5 X10*3/uL (0.1-1.2); Monocytes Percent Auto 6.9 % (2-11); Neutrophils Absolute Auto 4.9 x10*3/uL (2.0-8.3); Neutrophils Percent Auto 68.6 % (45-73); Platelet Count 249 X10*3/uL (160-400); Red Blood Count 4.61 X10*6/uL (4.20-5.50); Red Cell Distribution Width 14.6 % (11.0-16.0); White Blood Count 7.1 X10*3/uL (4.8-10.8)
[2023-12-30 17:06] LABS: Alanine Aminotransferase 24 U/L (0-31); Albumin Level 4.1 g/dL (3.5-5.0); Alkaline Phosphatase 77 U/L (39-117); Anion Gap 12 (12-20); Aspartate Amino Transferase 23 U/L (5-31); Bilirubin Total 0.3 mg/dL (0.0-1.0); Blood Urea Nitrogen 21 mg/dL (9-16); Calcium 9.1 mg/dL (8.4-10.2); Carbon Dioxide 26 mmol/L (22-29); Chloride 105 mmol/L (96-108); Cholesterol 199 mg/dL (<200); Estimated Glomerular Filt Rate > 60; Glucose Random 111 mg/dL (60-115); HDL Cholesterol 57 mg/dL (>40); LDL Cholesterol Calculated 128 mg/dL (<100); Sodium 139 mmol/L (135-145); Total Protein 7.2 g/dL (6.5-8.0); Triglycerides 73 mg/dL (<150)
[2023-12-30 17:24] LABS: TSH reflex Free T4 1.16 uIU/mL (0.32-4.0)
[2023-12-30 17:29] LABS: Folate 4.8 ng/mL (> or = 4.0); Vitamin B12 455 pg/mL (200-900)
== END 2023-12-30 08:26 | disposition home or self-care (01) ==
LOC: HO.CHCLDS 08:25
PROVIDERS: Visit Provider Family Medicine
DX: E11.9 Type 2 diabetes mellitus without complications (principal)
CPT/HCPCS: 36415; 80053; 80061; 82607; 82746; 84443; 85025

== ENCOUNTER 2024-01-19 13:45 | Outpatient (AMB) | payer MEDICAID, SELFPAY ==
--- NOTE | 2024-01-19 14:14 | MHC.OFFVIS ---
Intake Visit Reasons: Lipoma~ Abdomen Intake Note: Patient here for lipoma on Abd. Patient c/o: enlarging, tender. Marble Installer Required: No Accompanied by: Friend Allergies Penicillins [PENICILLINS] Allergy (Unknown, Verified 01/19/24 14:17) RASH sumatriptan [SUMATRIPTAN] Allergy (Unknown, Verified 01/19/24 14:17) DIFF BREATHING grass pollen Allergy (Verified 01/19/24 14:17) Difficulty Breathing mite-Dermatophagoides farinae, stacey [dust mite - [place]] Allergy (Verified 01/19/24 14:17) Difficulty Breathing Bunnys Allergy (Unknown, Uncoded 01/19/24 14:17) Rash/red eyes Cats Allergy (Unknown, Uncoded 01/19/24 14:17) Rash/red eye Dogs Allergy (Unknown, Uncoded 01/19/24 14:17) Rash/red eyes Medication List - Last Reconciled 01/19/24 by Lul Mendoza MD amitriptyline 1 tab PO BEDTIME mmbpbdqwsl-dubtkvwxlkeql-wddh 50-325-40 mg 1 - 2 tabs PO Q4H PRN dulaglutide (Trulicity) 1.5 mg subcut QWEEK fluconazole (Diflucan) 150 mg PO Q3D 2 doses fluconazole 150 mg PO Q3D 2 doses ibuprofen 600 mg PO Q6H PRN loperamide 2 mg PO Q6H PRN loratadine 1 tab PO DAILY metformin 1 tab PO BID nitrofurantoin macrocrystal 100 mg PO BID 7 days omeprazole 1 cap PO DAILY HPI Comments Details: Patient whom I know from the recent past, who presents with her daughter, who is here for evaluation excision of a symptomatic left flank lipoma. She has had this many years time. It is increasing in size, become more symptomatic. She would like to have it removed. Chart was reviewed patient evaluated. [facility] Medical History Cyst of ovary, left Migraine Iron deficiency GERD (gastroesophageal reflux disease) DVT (deep venous thrombosis) Diabetes Surgical History H/O resection of large bowel Hx of tubal ligation Hx of section Family History Paternal Grandfather Cancer Paternal Uncle Stomach cancer Father Diabetes Heart attack Mother Diabetes Heart attack Social History Household Members: Children Housing: Apartment Alcohol intake: never Patient Tobacco Use Status: Former Tobacco user Quit Date: 2018 Tobacco use type: Cigarette service: No Current occupational status: employed Physical Exam Skin Other: Patient has approximately 6 x 4 cm deep left lateral/flank lipoma. Risks, benefits, alternatives of excision of this process were reviewed with the patient and included but not limited to bleeding, infection, recurrence, numbness, pain, scarring the patient wished to proceed. All questions answered. Consent signed. Office Procedures Excision Details: After appropriate positioning, patient underwent 1% lidocaine and Betadine prep and a transverse incision was made of the left lower flank over the lipoma in question carried down through skin, subcutaneous tissue, were approximately 6 x 4 cm lipoma was uneventfully enucleated. Specimen sent to pathology. Wounds irrigated, secured hemostasis, and closed using running subcuticular 4-0 Vicryl suture followed by Steri-Strips and sterile dressings. Patient tolerated procedure well. 33996-jixcp/arms/legs >4cm Procedure code (CPT) selection complete Office Meds lidocaine 1 %-epinephrine 1:100,000 injection solution Performing Provider: Lul Mendoza MD Performing Location: [facility] [place] [facility] Administered by: Lul Mendoza MD on 01/19/24 14:46 Dose Route Admin Location Dispensed Lot Number Expiration Date [facility] Nuclear Medicine Chief Technologist 20 mL Infiltration 20 mL Assessment & Plan Assessment & Plan (1) Lipoma: Code(s): D17.9 - Benign lipomatous neoplasm, unspecified Category: Surgical Qualifiers: Lipoma location: neck Qualified Code(s): D17.0 - Benign lipomatous neoplasm of skin and subcutaneous tissue of head, face and neck Plan Patient has been given local instructions including see me in 1 week's time, no strenuous activities, may shower in 2 days, ice to the wound periodically, and Tylenol or Motrin p.r.n. pain. All questions answered. Orders: Orders AMB Excision Today D17.0 - Benign lipomatous neoplasm of skin and subcutaneous tissue of head, face and neck Medications: New lidocaine-epinephrine 1 %-1:100,000 20 mL Infiltration ONCE 30 mL 0RF D17.0 - Benign lipomatous neoplasm of skin and subcutaneous tissue of head, face and neck Coding Level of Care Code Est Pt Level 5 (63115) Diagnoses Lipoma of neck D17.0 Lipoma location: neck CPT Codes Trunk/Arms/Legs - CPT: 50823-sjxvm/arms/legs >4cm ([id number])
== END 2024-01-19 14:47 | disposition home or self-care (01) ==
PROVIDERS: PCP Family Medicine; Visit Provider Surgery
DX: D17.0 Benign lipomatous neoplasm of skin and subcutaneous tissue of head, face and neck (principal)
CPT/HCPCS: 11406; 99214

== ENCOUNTER 2024-01-19 13:45 | Outpatient (REF) | payer MEDICAID, SELFPAY | END 2024-01-19 13:46 | disposition home or self-care (01) | LOC: HO.LNP 13:45 | PROVIDERS: PCP Family Medicine; Visit Provider Surgery | DX: D17.9 Benign lipomatous neoplasm, unspecified (principal) | CPT/HCPCS: 11406; 88304; 99212 ==

== ENCOUNTER 2024-01-24 10:36 | Observation (INO) | payer MEDICAID, SELFPAY ==
--- NOTE | ~2024-01-24 | CT_ITS ---
EXAMINATION: CT ABDOMEN AND PELVIS WITH CONTRAST CLINICAL INFORMATION: Left flank ecchymosis status post surgery 5 days ago COMPARISON: None available. TECHNIQUE: Multidetector volumetric images were obtained from the superior aspect of the liver through the pubic symphysis following administration 85 mL of Omnipaque 350 intravenous contrast. Sagittal and coronal reformatted images were obtained on the technologist's workstation. Oral contrast: No This CT examination was performed using dose optimization techniques as appropriate, variously including the following: *Automated exposure control *Adjustment of mA and/or kV according to patient size (this includes techniques or standardized protocols for targeted exams where dose is matched to indication/reason for exam; i.e. extremities or head) *Use of iterative reconstruction technique DLP: 508 9 mGy-cm FINDINGS: LUNG BASES: Unremarkable. ABDOMINAL AND PELVIC WALL: In the right lower quadrant in the region of the previously seen soft tissue lipoma and a 6 cm intrinsically dense fluid collection consistent with hematoma with surrounding subcutaneous fat stranding. LIVER AND BILIARY TREE: Hypoattenuating hepatic parenchyma suggesting hepatic steatosis. GALLBLADDER: Unremarkable. PANCREAS: Unremarkable. SPLEEN: Unremarkable. ADRENAL GLANDS: Unremarkable. KIDNEYS AND URETERS: Unremarkable. GASTROINTESTINAL TRACT: Rectosigmoid surgical anastomosis. Colonic diverticulosis without evidence of diverticulitis. Normal appendix. VASCULAR: Unremarkable. LYMPH NODES/PERITONEUM: No lymphadenopathy. FREE FLUID: None. BLADDER: Unremarkable. PELVIC VISCERA: Unremarkable. OSSEOUS STRUCTURES: Unremarkable. CT/CT abdomen pelvis w IV con IMPRESSION: In the right lower quadrant in the region of the previously seen soft tissue lipoma and a 6 cm intrinsically dense fluid collection consistent with hematoma with surrounding subcutaneous fat stranding. Hepatic steatosis.
--- NOTE | 2024-01-24 10:46 | ECG_ITS ---
Test Reason : SOB Blood Pressure : / mmHG Vent. Rate : 079 BPM Atrial Rate : 079 BPM P-R Int : 116 ms QRS Dur : 090 ms QT Int : 364 ms P-R-T Axes : 052 011 041 degrees QTc Int : 417 ms Normal sinus rhythm Normal ECG When compared with ECG of 28-JUN-2020 08:54, No significant change was found Referred By: Erum Aranda Electronically Signed By:Antony Vides
[2024-01-24 11:00] VITALS: BP 132/89; PULSE 95; RESP 18; TEMP 36.5; O2SAT 98; BMI 27.8
--- NOTE | 2024-01-24 11:01 | ED_ITS ---
HPI - General Adult General Chief complaint: General Medical Stated complaint: ? blood clot, procedure done last thursday Time Seen by Provider: 01/24/24 11:14 Source: patient Mode of arrival: ambulatory Limitations: no limitations History of Present Illness ED Provider: Jossue ALLEN HPI narrative: This is a 48-year-old female history of obesity, anemia, migrane, DVT ( not on thinners), DM presenting to the emergency department status post lipoma removal to left flank on 01/19/2024 done here at [facility] by Dr. Mendoza, patient reporting she is having significant left flank bruising, pain and induration, all of which started immediately after surgery but has been progressively worsening. Patient reports significant pain 06/16. Patient not on blood thinners. Denies trauma to the area. Denies fevers, chills, chest pain, shortness of breath, nausea, vomiting, dizziness, weakness, headache, vision changes. Related Data Home Medications ?Medication ?Instructions ?Recorded ?Confirmed ecwwqgieiu-vfqcstzrbkvvo-lmuycexr 1 - 2 tab PO Q4H PRN migraine 07/02/21 01/19/24 50 mg-325 mg-40 mg tablet dulaglutide 1.5 mg/0.5 mL 1.5 mg subcut QWEEK 07/02/21 01/19/24 subcutaneous pen injector (Trulicity) loratadine 10 mg tablet 1 tab PO DAILY 07/02/21 01/19/24 metformin 500 mg tablet 1 tab PO BID 07/02/21 01/19/24 omeprazole 20 mg capsule,delayed 1 cap PO DAILY 07/02/21 01/19/24 release amitriptyline 10 mg tablet 1 tab PO BEDTIME headache 03/12/22 01/19/24 Previous Rx's ?Medication ?Instructions ?Recorded ibuprofen 600 mg tablet 600 mg PO Q6H PRN fever or pain 11/13/21 #60 tabs fluconazole 150 mg tablet 150 mg PO Q3D 2 doses #2 tabs 05/19/22 (Diflucan) nitrofurantoin macrocrystal 100 mg 100 mg PO BID 7 days #14 caps 05/19/22 capsule fluconazole 150 mg tablet 150 mg PO Q3D 2 doses #2 tabs 08/10/23 loperamide 2 mg tablet 2 mg PO Q6H PRN loose stool #14 08/10/23 tabs Allergies Allergy/AdvReac Type Severity Reaction Status Date / Time Penicillins [PENICILLINS] Allergy Unknown RASH Verified 01/24/24 11:02 sumatriptan [SUMATRIPTAN] Allergy Unknown DIFF Verified 01/24/24 11:02 BREATHING grass pollen Allergy Difficulty Verified 01/24/24 11:02 Breathing mite-Dermatophagoides Allergy Difficulty Verified 01/24/24 11:02 farinae, stacey Breathing [dust mite - [place]] Bunnys Allergy Unknown Rash/red Uncoded 01/24/24 11:02 eyes Cats Allergy Unknown Rash/red Uncoded 01/24/24 11:02 eye Dogs Allergy Unknown Rash/red Uncoded 01/24/24 11:02 eyes Review of Systems 2 Review of Systems: Yes all other systems are reviewed and are negative [facility] Past Medical History Attestation statement: The following information was validated with the patient. Source: old records reviewed and nursing notes reviewed Medical History Cyst of ovary, left Migraine Iron deficiency GERD (gastroesophageal reflux disease) DVT (deep venous thrombosis) Diabetes Surgical History H/O resection of large bowel Hx of tubal ligation Hx of section Family History Family History Paternal Grandfather Cancer Paternal Uncle Stomach cancer Father Diabetes Heart attack Mother Diabetes Heart attack Social History Social History Household Members: Children Housing: Apartment Alcohol intake: never Patient Tobacco Use Status: Former Tobacco user Quit Date: 2018 Tobacco use type: Cigarette Smoked in Last 30 Days: No Use of substances other than those prescribed or required for medical reasons: No Advance Directives: No Advance Directives Information Provided: Yes service: No Current occupational status: employed Physical Exam ED Vital Signs: Vital Signs - 24 hr 01/24/24 11:00 01/24/24 11:29 01/24/24 14:14 Temperature 97.7 F 97.6 F Pulse Rate 95 63 Respiratory Rate 18 18 18 Blood Pressure 132/89 149/91 H 134/78 Pulse Oximetry 98 97 99 Oxygen Delivery Method Room Air Room Air Room Air BMI result Body Mass Index 27.8 vss Appearance: Alert.? Oriented X3.? No acute distress.? Head: Normocephalic, atraumatic, no step-offs or deformities Eyes: Pupils equal, round and reactive to light.? CVS: Normal heart rate and rhythm.? Pulses normal.? Respiratory: No respiratory distress.? Breath sounds normal.? Abdomen: Soft and nontender.?+ left flank ttp w/ ecchymosis + nolan turners sign vs post op hematoma Skin: Skin warm and dry.? Normal skin color.? Normal skin turgor.? Extremities: No lower extremity edema.? No calf ttp. 5/5 strength to bilateral upper and lower extremities Back: No midline tenderness, no C-spine tenderness, full range of motion, no CVA tenderness bilaterally Neuro: Oriented X 3.? No motor deficit.? No sensory deficit. CN 2-12 intact Course Course Course Narrative: This is an RME performed by Chanelle Sommers, [employer]: Additional HPI, ROS, PE not included below will be deferred to primary provider. Patient is a 48-year-old female who presents to emergency department reporting having had a lipoma removed from the left lower quadrant of her abdomen on 01/19/[address] Mendoza. Endorses 7/10 incisional pain, Reports swelling and pain to ?the veins? in the bilateral groin noticed this morning. PE: L nolan carrington sign, TTP Plan: Serum labs including type and screen, CT of the abdomen and pelvis Reevaluation(s) Reevaluation #1: UA unremarkable. CBC with a microcytic anemia appears to be around patient's baseline. Chemistry no acute findings requiring intervention. Normal lipase. CT abdomen pelvis with right lower quadrant region previously seen soft tissue lipoma in 6 cm intrinsically dense fluid collection consistent with hematoma and surrounding subcutaneous fat stranding, I do not agree with this reading, I called [facility] and spoke to Dr. Selby who will change it, findings are in the left lower quadrant region. She agrees with this. She will add an addendum to the chart. Will reach out to surgery patient has significant tenderness and bruising. Plan is for her hospital admission Time: 15:10 Reevaluation #2: Patient will be admitted to the surgical team due to large postoperative hematoma with significant associated pain. Spoke to Dr. Dr. Reji Bey will see patient in AM Time: 15:14 Medications Administered Discontinued Medications Generic Name Dose Route Start Last Admin Trade Name Soha PRN Reason Stop Dose Admin Sodium Chloride 1,000 mls @ 999 mls/hr 01/24/24 11:15 01/24/24 15:09 Ns IV 01/24/24 12:15 Infused .Q1H1M PHU Infusion Iohexol 100 ml 01/24/24 13:02 01/24/24 13:02 Iohexol 350 Mg/Ml 100 Ml Infus..Btl IV 01/24/24 13:03 85 ml ONCE ONE Administration Morphine Sulfate 4 mg 01/24/24 11:17 01/24/24 11:28 Morphine Sulfate 4 Mg/Ml Cartridge IVPUSH 01/24/24 11:18 4 mg ONCE ONE Administration Protocol Medical Decision Making Medical Decision Making [facility] Narrative: 1118 48-year-old female presents with left flank pain and swelling status post surgery 5 days ago. Physical exam left flank ttp w/ ecchymosis + nolan turners sign vs post op hematoma ( image in chart w/ patient consent ) History and physical exam concerning for acute hematoma with possible extravasation plus or minus acute blood loss anemia or post op hematoma. Will rule out metabolic derangements. Will rule out other intra-abdominal etiologies. Plan labs, imaging, type and screen. Differential Diagnosis Differential Diagnoses: The differential diagnosis associated with the presentation includes History and physical exam concerning for acute hematoma with possible extravasation plus or minus acute blood loss anemia. Will rule out metabolic derangements. Will rule out other intra-abdominal etiologies. Admission/Observation Consideration of admission/observation: Escalation of care including admission/observation considered possible Lab Data [facility] Lab Attestation statement: I reviewed the patient's lab results. 01/24/24 11:16 01/24/24 11:16 Labs: Lab Results 01/24/24 01/24/24 01/24/24 Range/Units 11:16 11:24 14:16 WBC 5.9 (4.8-10.8) X10*3/uL RBC 4.24 (4.20-5.50) X10*6/uL Hgb 10.6 L (12.0-16.0) g/dl Hct 33.3 L (37.0-47.0) % MCV 78.5 L (80.0-98.0) fL MCH 25.0 L (27.0-33.0) pg MCHC 31.8 (31.0-35.0) g/dl RDW 14.6 (11.0-16.0) % Plt Count 215 (160-400) X10*3/uL MPV 10.8 (9.4-12.3) fL Immature Gran % (Auto) 0.3 (0.0-0.4) % Neut % (Auto) 60.9 (45-73) % Lymph % (Auto) 28.9 (20-40) % [place] % (Auto) 7.8 (2-11) % Eos % (Auto) 1.4 (0-4) % Baso % (Auto) 0.7 (0-2) % Lymph # (Auto) 1.7 (1.2-4.9) X10*3/uL [place] # (Auto) 0.5 (0.1-1.2) X10*3/uL Eos # (Auto) 0.1 (0.0-0.4) X10*3/uL Baso # (Auto) 0.0 (0.0-0.2) X10*3/uL Abs Immat Gran (auto) 0.02 (0.00-0.03) X10*3/uL Absolute Neuts (auto) 3.6 (2.0-8.3) x10*3/uL Absolute Nucleated RBC 0.000 (0.0-0.012) X10*3/uL Nucleated RBC % (auto) 0.0 (0.0-0.2) /100WBC PT 10.9 L (11.1-13.3) SEC INR 0.9 (0.9-1.1) Sodium 139 (135-145) mmol/L Potassium 3.9 (3.3-5.1) mmol/L Chloride 107 (96-108) mmol/L Carbon Dioxide 23 (22-29) mmol/L Anion Gap 13 (12-20) BUN 19 H (9-16) mg/dL Creatinine 0.71 (0.5-1.4) mg/dL Estim Creat Clear Calc 88.1 Estimated GFR > 60 Random Glucose 157 H (60-115) mg/dL Calcium 8.9 (8.4-10.2) mg/dL Total Bilirubin 0.3 (0.0-1.0) mg/dL AST 27 (5-31) U/L ALT 31 (0-31) U/L Alkaline Phosphatase 79 (39-117) U/L Troponin I High Sens < 2.7 (<3.5-17.0) ng/L B-Natriuretic Peptide 32 (<100) pg/mL Total Protein 7.1 (6.5-8.0) g/dL Albumin 4.1 (3.5-5.0) g/dL Lipase 31 (8-78) U/L Urine Color Yellow Urine Appearance Clear Urine pH 7.5 (5.0-9.0) Ur Specific [place] 1.020 (1.005-1.025) Urine Protein Negative (Neg-Trace) mg/dL Urine Glucose (UA) Negative (Negative) mg/dL Urine Ketones Negative (Negative) mg/dL Urine Blood Negative (Negative) Urine Nitrite Negative (Negative) Ur Leukocyte Esterase Negative (Negative) Blood Type A Positive Antibody Screen NEGATIVE Independent Interpretation I performed an independent interpretation of an: CT Scan (CT/CT abdomen pelvis w IV con IMPRESSION: In the right lower quadrant in the region of the previously seen soft tissue lipoma and a 6 cm intrinsically dense fluid collection consistent with hematoma with surrounding subcutaneous fat stranding. Hepatic steatosis. ) Radiology Impression Discussion of test interpretation with radiology: I discussed test interpretation with the radiologist (will add addendum, isuspect findings on LLQ/ left side not rlq) External Record Review External record reviewed: Inpatient record, Office record, Outpatient record, Prior outpatient labs, Prior outpatient radiology, Primary care record and Outside ED record Chronic Conditions Patient?s care impacted by: Other (obesity, anemia, migrane, DVT ( not on thinners), DM ) Critical Care Time Critical Care Time Critical Care Time: Yes Total Critical Care Time: 45 Attestation: I attest to this time spent taking care of the patient, obtaining history, physical, reviewing labs, imaging, speaking to my attending, specialist or hospitalist. Discharge Plan Discharge Clinical Impression: Abdominal wall hematoma, Post-op pain Patient Disposition: Admitted As Inpatient Prescriptions: No Action nitrofurantoin macrocrystal 100 mg capsule 100 mg PO BID 7 Days Qty: 14 0RF Rx Instructions: must administer with a meal/food fluconazole [Diflucan] 150 mg tablet 150 mg PO Q3D Qty: 2 0RF metformin 500 mg tablet 1 tab PO BID uswvcdpczv-hfudyorrpupjj-ewlb 50-325-40 mg tablet 1 - 2 tab PO Q4H PRN (Reason: migraine) omeprazole 20 mg capsule,delayed release(DR/EC) 1 cap PO DAILY loratadine 10 mg tablet 1 tab PO DAILY Trulicity 1.5 mg/0.5 mL pen injector 1.5 mg subcut QWEEK amitriptyline 10 mg tablet 1 tab PO BEDTIME ibuprofen 600 mg tablet 600 mg PO Q6H PRN (Reason: fever or pain) Qty: 60 0RF loperamide 2 mg tablet 2 mg PO Q6H PRN (Reason: loose stool) Qty: 14 0RF fluconazole 150 mg tablet 150 mg PO Q3D Qty: 2 0RF Print Language: Frisian
[2024-01-24 11:21] LABS: MANUAL DIFF FLAG NO
[2024-01-24 11:22] LABS: Basophils Percent Auto 0.7 % (0-2); Eosinophils Absolute Auto 0.1 X10*3/uL (0.0-0.4); Eosinophils Percent Auto 1.4 % (0-4); Hematocrit 33.3 % (37.0-47.0); Hemoglobin 10.6 g/dl (12.0-16.0); Imm Gran Abs Auto 0.02 X10*3/uL (0.00-0.03); Imm Gran Pct Auto 0.3 % (0.0-0.4); Lymphocytes Absolute Auto 1.7 X10*3/uL (1.2-4.9); Lymphocytes Percent Auto 28.9 % (20-40); Mean Corpuscular HGB Conc 31.8 g/dl (31.0-35.0); Mean Corpuscular Volume 78.5 fL (80.0-98.0); Mean Platelet Volume 10.8 fL (9.4-12.3); Monocytes Absolute Auto 0.5 X10*3/uL (0.1-1.2); Monocytes Percent Auto 7.8 % (2-11); Neutrophils Absolute Auto 3.6 x10*3/uL (2.0-8.3); Neutrophils Percent Auto 60.9 % (45-73); Platelet Count 215 X10*3/uL (160-400); Red Blood Count 4.24 X10*6/uL (4.20-5.50); Red Cell Distribution Width 14.6 % (11.0-16.0); White Blood Count 5.9 X10*3/uL (4.8-10.8)
[2024-01-24] MEDS: 0.9 % Sodium Chloride 1,000 ML 999 ML IV (11:28)
[2024-01-24] MEDS: Morphine Sulfate 4 MG/ML CARTRIDGE IVPUSH ×2 (11:28→15:22)
[2024-01-24 11:29] VITALS: BP 149/91; RESP 18; O2SAT 97
[2024-01-24 11:30] LABS: INTERNATIONAL NORM RATIO 0.9 (0.9-1.1); Prothrombin Time 10.9 SEC (11.1-13.3)
[2024-01-24 11:41] LABS: Alanine Aminotransferase 31 U/L (0-31); Albumin Level 4.1 g/dL (3.5-5.0); Alkaline Phosphatase 79 U/L (39-117); Anion Gap 13 (12-20); Aspartate Amino Transferase 27 U/L (5-31); Bilirubin Total 0.3 mg/dL (0.0-1.0); Blood Urea Nitrogen 19 mg/dL (9-16); Calcium 8.9 mg/dL (8.4-10.2); Carbon Dioxide 23 mmol/L (22-29); Chloride 107 mmol/L (96-108); Creatinine Clr Calc Pharmacy 88.1; Estimated Glomerular Filt Rate > 60; Glucose Random 157 mg/dL (60-115); Potassium 3.9 mmol/L (3.3-5.1); Sodium 139 mmol/L (135-145); Total Protein 7.1 g/dL (6.5-8.0)
[2024-01-24 11:44] LABS: B Type Natriuretic Peptide 32 pg/mL (<100)
[2024-01-24 12:03] LABS: Troponin-I High Sensitivity < 2.7 ng/L (<3.5-17.0)
[2024-01-24] MEDS: iohexoL 350 MG/ML 100 ML INFUS..BTL IV (13:02)
[2024-01-24 13:11] LABS: Lipase 31 U/L (8-78)
[2024-01-24 14:14] VITALS: BP 134/78; PULSE 63; RESP 18; TEMP 36.4; O2SAT 99
[2024-01-24 14:28] LABS: Appearance Urine Clear; Color Urine Yellow; Glucose Urine UA Negative (Negative); Leukocyte Esterase Urine Negative (Negative); Nitrite Urine Negative (Negative); PH 7.5 (5.0-9.0); Urine Blood Negative (Negative); Urine Ketones Negative (Negative); Urine Protein Negative (Neg-Trace)
[2024-01-24] MEDS: Acetaminophen 1,000 MG/100 ML PIGGYBACK 400 MG IV ×2 (15:57→22:51)
[2024-01-24] MEDS: Lactated Ringers 1,000 ML 100 ML IVCONT (15:58)
[2024-01-24 17:06] LABS: Glucose, Whole Blood 134 mg/dL (60-115)
[2024-01-24 17:13] LABS: HCG Quantitative 3 mIU/mL
--- NOTE | 2024-01-24 17:16 | PHA.MEDREC ---
Pharmacy Consult ? Medication Reconciliation Pharmacy has completed the medication reconciliation.
[2024-01-24] MEDS: 0.9 % Sodium Chloride Flush 3 ML SYRINGE IVFLUSH ×2 (17:34→23:19)
[2024-01-24 18:47] VITALS: BP 122/80; PULSE 73; RESP 18; TEMP 36.9; O2SAT 96
[2024-01-24 20:32] LABS: Glucose, Whole Blood 263 mg/dL (60-115)
--- NOTE | 2024-01-24 23:00 | PC.NURSE ---
This real estate underwriter assumed care of this Pt at 1900. Pt A&Ox3, reports 6/10 pain to LLQ. Purple Bruising noted from LLQ and wraps around to flank area. IV fluids running per NOV. Pt ambulates to BR with steady gait. Pt aware of NPO after midnight.
[2024-01-25 01:09] LABS: Glucose, Whole Blood 238 mg/dL (60-115)
[2024-01-25] MEDS: Insulin Lispro 100 UNIT/ML 3 ML VIAL SUBCUT ×2 (01:14→06:02)
[2024-01-25] MEDS: Lactated Ringers 1,000 ML 100 ML IVCONT (01:15)
[2024-01-25] MEDS: Acetaminophen 1,000 MG/100 ML PIGGYBACK 400 MG IV ×2 (03:22→09:04)
--- NOTE | 2024-01-25 04:42 | PC.NURSE ---
Pt awake reports having episodes of hot flashes, states I think I am going through menopause, I get these at night and not able to sleep , given ice pack per request. Pt ambulated independently to BR.
[2024-01-25 05:46] LABS: Glucose, Whole Blood 157 mg/dL (60-115)
[2024-01-25 06:27] VITALS: BP 139/80; PULSE 55; RESP 16; TEMP 36.9; O2SAT 99
[2024-01-25 07:40] LABS: Glucose, Whole Blood 126 mg/dL (60-115)
--- NOTE | 2024-01-25 10:57 | PC.NURSE ---
per Dr. Mendoza, pt no longer needs to be NPO.
--- NOTE | 2024-01-25 11:06 | PM.PNGS ---
Subjective Subjective Date of Service: 01/25/24 Interval history: Patient was a proximally 1 week status post excision of large deep left flank abdominal wall lipoma. Presents with ecchymosis and small wound hematoma as well. At present, patient is stable. Symptoms are tolerable. H&H within normal limits. Physical Exam Vital Signs: Vital Signs: Last Vital Signs Temp 98.4 F 01/25/24 06:27 Pulse 55 01/25/24 06:27 Resp 16 01/25/24 06:27 BP 139/80 01/25/24 06:27 Pulse Ox 99 01/25/24 06:27 O2 Del Method Room Air 01/25/24 06:27 BMI result Body Mass Index 27.8 Skin: Other: Left flank hematoma and ecchymosis. No evidence of any incisional infection or abscess Objective Data Active Medications Glucose (Glucose Gel 15 Gm Gel..Gram.) 15 gm PO Q15M PRN; Protocol PRN Reason: per Hypoglycemia Standing Ord. Hydromorphone HCl (Hydromorphone Hcl 0.5 Mg/0.5 Ml Syringe) 0.5 mg IVPUSH Q3H PRN; Protocol PRN Reason: Pain, Severe (Pain Scale 7-10) Lactated Ringer's (Lr) 1,000 mls @ 100 mls/hr IVCONT .Q10H [facility] Last Admin: 01/25/24 01:15 Dose: 100 mls/hr Documented By: SUJIT Dextrose (D10) 250 mls @ 750 mls/hr IV Q15M PRN; Protocol PRN Reason: per Hypoglycemia Standing Ord. Insulin Human Lispro (Insulin Lispro 100 Unit/Ml 3 Ml Vial) 0 unit SUBCUT Q6H [facility]; Protocol Last Admin: 01/25/24 06:02 Dose: 2 unit Documented By: SUJIT Ondansetron HCl (Ondansetron Hcl 4 Mg/2 Ml Vial) 4 mg IVPUSH QID PRN PRN Reason: Nausea Oxycodone HCl (Oxycodone Hcl Immed Release 5 Mg Tablet) 5 mg PO Q6H PRN PRN Reason: Pain, Moderate(Pain Scale 4-6) Sodium Chloride (0.9 % Sodium Chloride Flush 3 Ml Syringe) 3 ml IVFLUSH QSHIFT [facility] Last Admin: 01/25/24 07:44 Dose: Not Given Documented By: [facility] Non-Admin Reason: IV Running Labs 01/24/24 11:16 01/24/24 11:16 Labs: Laboratory Results - last 24 hr 01/24/24 01/24/24 01/24/24 11:16 11:24 14:16 MCV 78.5 L MCH 25.0 L MCHC 31.8 RDW 14.6 Plt Count 215 MPV 10.8 Immature Gran % (Auto) 0.3 Neut % (Auto) 60.9 Lymph % (Auto) 28.9 [place] % (Auto) 7.8 Eos % (Auto) 1.4 Baso % (Auto) 0.7 Lymph # (Auto) 1.7 [place] # (Auto) 0.5 Eos # (Auto) 0.1 Baso # (Auto) 0.0 Abs Immat Gran (auto) 0.02 Absolute Neuts (auto) 3.6 Absolute Nucleated RBC 0.000 Nucleated RBC % (auto) 0.0 PT 10.9 L INR 0.9 Anion Gap 13 Estim Creat Clear Calc 88.1 Estimated GFR > 60 POC Glucose Random Glucose 157 H Calcium 8.9 Total Bilirubin 0.3 AST 27 ALT 31 Alkaline Phosphatase 79 Troponin I High Sens < 2.7 B-Natriuretic Peptide 32 Total Protein 7.1 Albumin 4.1 Lipase 31 Beta HCG, Quant 3 Urine Color Yellow Urine Appearance Clear Urine pH 7.5 Ur Specific [place] 1.020 Urine Protein Negative Urine Glucose (UA) Negative Urine Ketones Negative Urine Blood Negative Urine Nitrite Negative Ur Leukocyte Esterase Negative Blood Type A Positive Antibody Screen NEGATIVE 01/24/24 01/24/24 01/25/24 17:03 20:28 00:25 MCV MCH MCHC RDW Plt Count MPV Immature Gran % (Auto) Neut % (Auto) Lymph % (Auto) [place] % (Auto) Eos % (Auto) Baso % (Auto) Lymph # (Auto) [place] # (Auto) Eos # (Auto) Baso # (Auto) Abs Immat Gran (auto) Absolute Neuts (auto) Absolute Nucleated RBC Nucleated RBC % (auto) PT INR Anion Gap Estim Creat Clear Calc Estimated GFR POC Glucose 134 H 263 H 238 H Random Glucose Calcium Total Bilirubin AST ALT Alkaline Phosphatase Troponin I High Sens B-Natriuretic Peptide Total Protein Albumin Lipase Beta HCG, Quant Urine Color Urine Appearance Urine pH Ur Specific [place] Urine Protein Urine Glucose (UA) Urine Ketones Urine Blood Urine Nitrite Ur Leukocyte Esterase Blood Type Antibody Screen 01/25/24 01/25/24 05:41 07:37 MCV MCH MCHC RDW Plt Count MPV Immature Gran % (Auto) Neut % (Auto) Lymph % (Auto) [place] % (Auto) Eos % (Auto) Baso % (Auto) Lymph # (Auto) [place] # (Auto) Eos # (Auto) Baso # (Auto) Abs Immat Gran (auto) Absolute Neuts (auto) Absolute Nucleated RBC Nucleated RBC % (auto) PT INR Anion Gap Estim Creat Clear Calc Estimated GFR POC Glucose 157 H 126 H Random Glucose Calcium Total Bilirubin AST ALT Alkaline Phosphatase Troponin I High Sens B-Natriuretic Peptide Total Protein Albumin Lipase Beta HCG, Quant Urine Color Urine Appearance Urine pH Ur Specific [place] Urine Protein Urine Glucose (UA) Urine Ketones Urine Blood Urine Nitrite Ur Leukocyte Esterase Blood Type Antibody Screen Procedures Date of Service Date of Service: 01/25/24 Progress Note: A&P Assessment and plan (1) Abdominal wall hematoma: Status: Acute Plan Patient was reassured at this process has self contained (tamponaded). With conservative therapy this will resolve in 4-6 weeks. Patient was scheduled to see me this Thursday for follow-up and she is to keep that appointment. She should avoid strenuous activities and apply either ice or heat whichever lessens her symptoms as well as for her prescribed analgesics. Patient will see me as directed or p.r.n.. All questions answered. Time Spent With Patient Time: Total time managing care of this patient today ____ minutes. Quality Stroke Does the patient have a stroke diagnosis?: No VTE Prior VTE?: No VTE Risk Level:: Surgical - low VTE Device Contraindication: N/A - Device Ordered VTE Drug Contraindication: Treatment Not Indicated
--- NOTE | 2024-01-25 11:16 | PM.HPGS ---
History of Present Illness History of Present Illness Date of Service: 01/25/24 Chief complaint: Hematoma left flank Narrative: Izabella Amador is a 48 year old female Please see general surgery progress note. H and P dictation was put under progress note PMFSH Past Medical History Medical History Cyst of ovary, left Migraine Iron deficiency GERD (gastroesophageal reflux disease) DVT (deep venous thrombosis) Diabetes Family History Family History Paternal Grandfather Cancer Paternal Uncle Stomach cancer Father Diabetes Heart attack Mother Diabetes Heart attack Surgical History Surgical History H/O resection of large bowel Hx of tubal ligation Hx of section Social History Social History Household Members: Children Housing: Apartment Alcohol intake: never Patient Tobacco Use Status: Former Tobacco user Quit Date: 2018 Tobacco use type: Cigarette Smoked in Last 30 Days: No Use of substances other than those prescribed or required for medical reasons: No Advance Directives: No Advance Directives Information Provided: Yes Nutrition Risks: No Nutritional Risk service: No Current occupational status: employed Meds Allergies Allergy/AdvReac Type Severity Reaction Status Date / Time Penicillins [PENICILLINS] Allergy Unknown RASH Verified 01/24/24 11:02 sumatriptan [SUMATRIPTAN] Allergy Unknown DIFF Verified 01/24/24 11:02 BREATHING grass pollen Allergy Difficulty Verified 01/24/24 11:02 Breathing mite-Dermatophagoides Allergy Difficulty Verified 01/24/24 11:02 farinae, stacey Breathing [dust mite - [place]] Bunnys Allergy Unknown Rash/red Uncoded 01/24/24 11:02 eyes Cats Allergy Unknown Rash/red Uncoded 01/24/24 11:02 eye Dogs Allergy Unknown Rash/red Uncoded 01/24/24 11:02 eyes Active Medications: Current Medications Glucose (Glucose Gel 15 Gm Gel..Gram.) 15 gm PO Q15M PRN; Protocol PRN Reason: per Hypoglycemia Standing Ord. Hydromorphone HCl (Hydromorphone Hcl 0.5 Mg/0.5 Ml Syringe) 0.5 mg IVPUSH Q3H PRN; Protocol PRN Reason: Pain, Severe (Pain Scale 7-10) Lactated Ringer's (Lr) 1,000 mls @ 100 mls/hr IVCONT .Q10H [facility] Last Admin: 01/25/24 01:15 Dose: 100 mls/hr Dextrose (D10) 250 mls @ 750 mls/hr IV Q15M PRN; Protocol PRN Reason: per Hypoglycemia Standing Ord. Insulin Human Lispro (Insulin Lispro 100 Unit/Ml 3 Ml Vial) 0 unit SUBCUT Q6H [facility]; Protocol Last Admin: 01/25/24 06:02 Dose: 2 unit Ondansetron HCl (Ondansetron Hcl 4 Mg/2 Ml Vial) 4 mg IVPUSH QID PRN PRN Reason: Nausea Oxycodone HCl (Oxycodone Hcl Immed Release 5 Mg Tablet) 5 mg PO Q6H PRN PRN Reason: Pain, Moderate(Pain Scale 4-6) Sodium Chloride (0.9 % Sodium Chloride Flush 3 Ml Syringe) 3 ml IVFLUSH QSHIFT [facility] Last Admin: 01/25/24 07:44 Dose: Not Given Home Medications ?Medication ?Instructions ?Recorded ?Confirmed ?Last Taken ?Type loratadine 10 mg tablet 1 tab PO DAILY 07/02/21 01/24/24 01/23/24 History omeprazole 20 mg capsule,delayed 1 cap PO DAILY@0630 PRN Acid Reflux 07/02/21 01/24/24 Unknown History release cholecalciferol (vitamin D3) 50 50 mcg PO DAILY 01/24/24 01/24/24 01/23/24 History mcg (2,000 unit) tablet ferrous gluconate 324 mg (38 mg 324 mg PO Q OTHER DAY 01/24/24 01/24/24 Unknown History iron) tablet ibuprofen 200 mg tablet 400 mg PO Q8H PRN Pain 01/24/24 01/24/24 Unknown History rosuvastatin 40 mg tablet 40 mg PO DAILY 01/24/24 01/24/24 01/23/24 History semaglutide 0.25 mg or 0.5 mg (2 0.25 mg subcut MO@0900 01/24/24 01/24/24 01/18/24 History mg/3 mL) subcutaneous pen injector (Ozempic) Physical Exam Vital Signs: Vital Signs: Last Vital Signs Temp 98.4 F 01/25/24 06:27 Pulse 55 01/25/24 06:27 Resp 16 01/25/24 06:27 BP 139/80 01/25/24 06:27 Pulse Ox 99 01/25/24 06:27 O2 Del Method Room Air 01/25/24 06:27 BMI result Body Mass Index 27.8 Results Results Labs: Short CBC 01/24/24 Range/Units 11:16 WBC 5.9 (4.8-10.8) X10*3/uL Hgb 10.6 L (12.0-16.0) g/dl Hct 33.3 L (37.0-47.0) % Plt Count 215 (160-400) X10*3/uL BMP 01/24/24 11:16 Sodium 139 Potassium 3.9 Chloride 107 Carbon Dioxide 23 BUN 19 H Creatinine 0.71 Calcium 8.9 Liver Function 01/24/24 Range/Units 11:16 Total Bilirubin 0.3 (0.0-1.0) mg/dL AST 27 (5-31) U/L ALT 31 (0-31) U/L Alkaline Phosphatase 79 (39-117) U/L Albumin 4.1 (3.5-5.0) g/dL Urine 01/24/24 Range/Units 14:16 Urine Color Yellow Urine Appearance Clear Urine pH 7.5 (5.0-9.0) Ur Specific [place] 1.020 (1.005-1.025) Urine Protein Negative (Neg-Trace) mg/dL Urine Glucose (UA) Negative (Negative) mg/dL Quality Stroke Does the patient have a stroke diagnosis?: No VTE Prior VTE?: No VTE Risk Level:: Surgical - low VTE Device Contraindication: N/A - Device Ordered VTE Drug Contraindication: Treatment Not Indicated Procedures Date of Service Date of Service: 01/25/24
[2024-01-25 11:34] VITALS: BP 139/80; PULSE 55; RESP 16; TEMP 36.9; O2SAT 99
--- NOTE | 2024-01-25 12:22 | PM.DS ---
DS: Providers Provider Date of Service: 01/25/24 Date of admission: 01/24/24 15:16 Date of discharge: 01/25/24 Primary care physician: Randi Chávez MD Attending physician on admission: Vega Bey Attending physician on discharge: Lul Mendoza DS: Diagnosis Discharge Diagnosis (1) Abdominal wall hematoma: Status: Acute DS: Summary Hospital Course Hospital Course: HPI AT ADMISSION: Patient was a proximally 1 week status post excision of large deep left flank abdominal wall lipoma. Presents with ecchymosis and small wound hematoma as well. At present, patient is stable. Symptoms are tolerable. H&H slightly drifted from baseline. She had no dizziness, chest pain, SOB. HOSPITAL COURSE: She was admitted to the surgical service for observation. Her symptoms were well controlled and she was hemodynamically stable. Patient was reassured at this process has self contained (tamponaded) and conservative therapy and observation will resolve in 4-6 weeks. Patient is it follow up in the office later this week for further wound check. She was educated to avoid strenuous activities and apply either ice or heat whichever lessens her symptoms as well as for her prescribed analgesics. She was discharged to home on 01/25/24 in stable condition. Status at Discharge Functional status at discharge: independent ambulation Overall status at discharge: patient is progressing back to baseline Time Attestation Discharge Coordination Time (in mins): 25 Quality: Safe Use of Opioids Does Pt have an Active Cancer Diagnosis on the Problem List?: No Quality: Stroke Does the patient have a stroke diagnosis?: No Physical Exam Vital Signs: Vital Signs: Last Vital Signs Temp 98.4 F 01/25/24 11:34 Pulse 55 01/25/24 11:34 Resp 16 01/25/24 11:34 BP 139/80 01/25/24 11:34 Pulse Ox 99 01/25/24 11:34 O2 Del Method Room Air 01/25/24 11:34 BMI result Body Mass Index 27.8 Const: General: comfortable, no acute distress and alert Orientation/consciousness: patient oriented x3 Resp: Effort & Inspection: normal respiratory effort GI: Other: left lateral flank excision site clean appearing, well approximated, small hematoma underneath with significant old ecchymosis extending anteriorly into abdomen and posteriorly into back Skin: Other: normal color except as noted above Neuro: General: patient oriented x3 and moves all extremities Discharge Plan Discharge Patient Disposition: Home, Self-Care Discharge Diagnosis: Abdominal wall hematoma Referrals: Lul Mendoza MD [Physician] - 1 Week Randi Chávez MD [Primary Care Provider] - 1 Week Discharge Medications: New oxycodone 5 mg tablet 5 mg PO Q4H PRN (Reason: pain (scale score 7-10)) Qty: 14 0RF Rx Instructions: Partial Fill upon patient request. Continued omeprazole 20 mg capsule,delayed release(DR/EC) 1 cap PO DAILY@0630 PRN (Reason: Acid Reflux) loratadine 10 mg tablet 1 tab PO DAILY rosuvastatin 40 mg tablet 40 mg PO DAILY ferrous gluconate 324 mg (38 mg iron) tablet 324 mg PO Q OTHER DAY cholecalciferol (vitamin D3) 50 mcg (2,000 unit) tablet 50 mcg PO DAILY Ozempic 0.25 mg or 0.5 mg (2 mg/3 mL) pen injector 0.25 mg subcut MO@0900 Held ibuprofen 200 mg Tablet 400 mg PO Q8H PRN (Reason: Pain) Hold Instructions: Resume on 02/08/24. Discharge Orders: Discharge Order (Routine); Ordered 01/25/24 Ordered By: Roberta Terry Diet: Diabetic diet Activity on Discharge: No heavy lifting Stand Alone Forms: Patient Portal Discharge page Print Language: Maltese Activity Restrictions/Additional Instructions: Apply an ice pack or heat for short intervals (20 minutes on, followed by at least 20 minutes off) for the first 2 days. Do not use creams, lotions, or topical antibiotics. Ok to shower. Follow up in office with Dr. Mendoza in 1 week. ([phone]) No heavy lifting (>10lbs) or strenuous activity! Call Your Doctor If: -Your temperature exceeds 101.5? F -You experience excessive pain or swelling -You experience continued vomiting/nausea -Your incision begins to separate -Your incision shows signs of infection such as increased redness, swelling, excessive pain, drainage (light blood or clear fluid is normal) or heat Care Plan Goals: Return to baseline health and resume normal activities following recovery period. Health Concerns: s/p excision of lipoma left flank hematoma left flank Plan of Treatment: observation Assessment: Stable Discharge Date/Time: 01/25/24 11:29
== END 2024-01-25 11:29 | disposition home or self-care (01) ==
LOC: HO.ED 15:16 → HO.EDOVER 15:47
PROVIDERS: Nurse Practitioner Family; Physician Assistant; Admitting Provider Surgery; Emergency Provider Emergency Medicine; PCP Family Medicine; Visit Provider Surgery
DX: L76.32 Postprocedural hematoma of skin and subcutaneous tissue following other procedure (principal); Y83.8 Other surgical procedures as the cause of abnormal reaction of the patient, or of later complication, without mention of misadventure at the time of the procedure; Y92.9 Unspecified place or not applicable; G89.18 Other acute postprocedural pain; R06.02 Shortness of breath; D64.9 Anemia, unspecified; I82.409 Acute embolism and thrombosis of unspecified deep veins of unspecified lower extremity; Z79.899 Other long term (current) drug therapy; E11.9 Type 2 diabetes mellitus without complications
CPT/HCPCS: 36415; 74177; 80053; 81003; 82947; 83690; 83880; 84484; 84702; 85025; 85610; 86850; 86900; 86901; 93005; 96361; 96365; 96366; 96375; 96376; 99221; 99285; J0131; J2270; J7120; Q9967

== ENCOUNTER → 2024-01-24 10:46 | Outpatient (BNV) | payer MEDICAID, SELFPAY | PROVIDERS: Admitting Provider Surgery; Emergency Provider Emergency Medicine; PCP Family Medicine; Visit Provider Internal Medicine Cardiovascular Disease | DX: R06.02 Shortness of breath (principal) | CPT/HCPCS: 93010 ==

== ENCOUNTER → 2024-01-24 15:16 | Outpatient (BNV) | payer MEDICAID, SELFPAY | PROVIDERS: Admitting Provider Surgery; Emergency Provider Emergency Medicine; PCP Family Medicine; Visit Provider Surgery | DX: S30.1XXA Contusion of abdominal wall, initial encounter (principal) | CPT/HCPCS: 99024 ==

== ENCOUNTER 2024-01-27 14:11 | Outpatient (AMB) | payer MEDICAID, SELFPAY ==
--- NOTE | 2024-01-27 14:13 | A.OFFVIS_ITS ---
Intake Visit Reasons: follow up visit Lipoma~ Abdomen Intake Note: Patient is seen in office for follow up visit, following lipoma of the abdomen. 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 Accompanied by: Self / Same As Patient Allergies Penicillins [PENICILLINS] Allergy (Unknown, Verified 01/27/24 14:18) RASH sumatriptan [SUMATRIPTAN] Allergy (Unknown, Verified 01/27/24 14:18) DIFF BREATHING grass pollen Allergy (Verified 01/27/24 14:18) Difficulty Breathing mite-Dermatophagoides farinae, stacey [dust mite - [place]] Allergy (Veri fied 01/27/24 14:18) Difficulty Breathing Bunnys Allergy (Unknown, Uncoded 01/27/24 14:18) Rash/red eyes Cats Allergy (Unknown, Uncoded 01/27/24 14:18) Rash/red eye Dogs Allergy (Unknown, Uncoded 01/27/24 14:18) Rash/red eyes HPI Comments Details: Patient presents for follow-up. She was seen earlier in the week was of a left flank hematoma and abdominal wall/flank ecchymosis. They are all improving. [facility] Medical History Cyst of ovary, left Migraine Iron deficiency GERD (gastroesophageal reflux disease) DVT (deep venous thrombosis) Diabetes Surgical History H/O resection of large bowel Hx of tubal ligation Hx of section Family History Paternal Grandfather Cancer Paternal Uncle Stomach cancer Father Diabetes Heart attack Mother Diabetes Heart attack Social History Household Members: Children Housing: Apartment Alcohol intake: never Patient Tobacco Use Status: Former Tobacco user Quit Date: 2018 Tobacco use type: Cigarette service: No Current occupational status: employed Physical Exam GI Other: Incision is clean dry and intact. Contained either seroma or hematoma. Patient has resolving ecchymosis of the left flank area. Assessment & Plan Assessment & Plan (1) Postop check: Code(s): Z09 - Encounter for follow-up examination after completed treatment for conditions other than malignant neoplasm Category: Surgical Plan Patient wishes to commenced work. We will allow her to do so with 2 weeks light duty. She will see me in a proximally 2 weeks' time for follow-up and we will further direct her were load on that evaluation. All questions answered. Patient will see me as noted above or p.r.n.. All questions answered. Coding Level of Care Code Global (51985) Diagnoses Postop check Z09
== END 2024-01-27 14:30 | disposition home or self-care (01) ==
LOC: HO.HGS 14:11
PROVIDERS: PCP Family Medicine; Visit Provider Surgery
DX: Z09 Encounter for follow-up examination after completed treatment for conditions other than malignant neoplasm (principal)
CPT/HCPCS: 99024

== ENCOUNTER → 2024-01-27 14:11 | Outpatient (BNVA) | payer MEDICAID, SELFPAY | PROVIDERS: PCP Family Medicine; Visit Provider Surgery | DX: Z09 Encounter for follow-up examination after completed treatment for conditions other than malignant neoplasm (principal); D17.1 Benign lipomatous neoplasm of skin and subcutaneous tissue of trunk | CPT/HCPCS: 99212 ==

== ENCOUNTER 2024-02-02 12:47 | Outpatient (AMB) | payer MEDICAID, SELFPAY ==
--- NOTE | 2024-02-02 12:50 | A.OFFVIS_ITS ---
Intake Visit Reasons: wound check, lipoma abdomen, Hard lump,red Intake Note: This patient presents for a wound check, lipoma of abdomen, hard lump and redness. Patient c/o; reports bulge, reports hard lump, reports no discharge or drainage, reports bruising, reports burning sensation. 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 Accompanied by: Self / Same As Patient Allergies Penicillins [PENICILLINS] Allergy (Unknown, Verified 02/02/24 12:55) RASH sumatriptan [SUMATRIPTAN] Allergy (Unknown, Verified 02/02/24 12:55) DIFF BREATHING grass pollen Allergy (Verified 02/02/24 12:55) Difficulty Breathing mite-Dermatophagoides farinae, stacey [dust mite - [place]] Allergy (Verified 02/02/24 12:55) Difficulty Breathing Bunnys Allergy (Unknown, Uncoded 02/02/24 12:55) Rash/red eyes Cats Allergy (Unknown, Uncoded 02/02/24 12:55) Rash/red eye Dogs Allergy (Unknown, Uncoded 02/02/24 12:55) Rash/red eyes HPI Comments Details: Patient presents for follow-up. She has complete resolution of her ecchymosis. She still has some fullness at the incision site. [facility] Medical History Cyst of ovary, left Migraine Iron deficiency GERD (gastroesophageal reflux disease) DVT (deep venous thrombosis) Diabetes Surgical History H/O resection of large bowel Hx of tubal ligation Hx of section Family History Paternal Grandfather Cancer Paternal Uncle Stomach cancer Father Diabetes Heart attack Mother Diabetes Heart attack Social History Household Members: Children Housing: Apartment Alcohol intake: never Patient Tobacco Use Status: Former Tobacco user Quit Date: 2018 Tobacco use type: Cigarette service: No Current occupational status: employed Physical Exam Back/Spine/Pelvis Other: We will incision is clean dry and intact. Patient has residual hematoma/seroma. Discussed with the patient and the body was in the resolved this we can attempt to aspirate this if the hematoma is liquified. She has opted for the latter. Using 1% lidocaine and Betadine prep this was attempted and only some clot was retrieved. Dressing was applied. Well tolerated. Assessment & Plan Assessment & Plan (1) Postop check: Code(s): Z09 - Encounter for follow-up examination after completed treatment for conditions other than malignant neoplasm Category: Surgical Plan At present, hematoma persists and is not liquified enough to aspirate. Patient has been given local instructions, and will see me in the few weeks time or p.r.n.. All questions answered. Avoid strenuous activities and warm compresses p.r.n.. All questions answered Coding Level of Care Code Global (10179) Diagnoses Postop check Z09
== END 2024-02-02 13:29 | disposition home or self-care (01) ==
PROVIDERS: PCP Family Medicine; Visit Provider Surgery
DX: Z09 Encounter for follow-up examination after completed treatment for conditions other than malignant neoplasm (principal)
CPT/HCPCS: 99024

== ENCOUNTER → 2024-02-02 12:47 | Outpatient (BNVA) | payer MEDICAID, SELFPAY | PROVIDERS: PCP Family Medicine; Visit Provider Surgery | DX: Z09 Encounter for follow-up examination after completed treatment for conditions other than malignant neoplasm (principal) | CPT/HCPCS: 99212 ==

== ENCOUNTER 2024-02-15 13:43 | Outpatient (AMB) | payer MEDICAID, SELFPAY ==
[2024-02-15 13:47] VITALS: BP 149/97; PULSE 78
--- NOTE | 2024-02-15 13:47 | A.OFFVIS_ITS ---
Vital Signs 02/15/24 13:47 Weight 159 lb BP 149/97 H Blood Pressure Location Rt brachial Position Sitting Pulse 78 Intake Visit Reasons: 2 week follow up lipoma removal Intake Note: Patient here to f/u excision site on Lt lower flank. Reports improvement. Patient c/o: lump feels hard with constant moving, up and down stairs. At times it feels softer. Overall healing. 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 Accompanied by: Self / Same As Patient Allergies Penicillins [PENICILLINS] Allergy (Unknown, Verified 02/15/24 13:49) RASH sumatriptan [SUMATRIPTAN] Allergy (Unknown, Verified 02/15/24 13:49) DIFF BREATHING grass pollen Allergy (Verified 02/15/24 13:49) Difficulty Breathing mite-Dermatophagoides farinae, stacey [dust mite - [place]] Allergy (Verified 02/15/24 13:49) Difficulty Breathing Bunnys Allergy (Unknown, Uncoded 02/15/24 13:49) Rash/red eyes Cats Allergy (Unknown, Uncoded 02/15/24 13:49) Rash/red eye Dogs Allergy (Unknown, Uncoded 02/15/24 13:49) Rash/red eyes HPI Comments Details: Patient presents for follow-up. No new wound issues or complaints. [facility] Medical History Cyst of ovary, left Migraine Iron deficiency GERD (gastroesophageal reflux disease) DVT (deep venous thrombosis) Diabetes Surgical History H/O resection of large bowel Hx of tubal ligation Hx of section Family History Paternal Grandfather Cancer Paternal Uncle Stomach cancer Father Diabetes Heart attack Mother Diabetes Heart attack Social History Household Members: Children Housing: Apartment Alcohol intake: never Patient Tobacco Use Status: Former Tobacco user Tobacco use type: Cigarette service: No Current occupational status: employed Physical Exam Vital Signs: Last Vital Signs Pulse 78 02/15/24 13:47 BP 149/97 H 02/15/24 13:47 GI Other: Left flank incision clean dry and intact, healing very well. Extruding suture from the posterior aspect was uneventfully removed. Patient has a resolving small hematoma. Assessment & Plan Assessment & Plan (1) Postop check: Code(s): Z09 - Encounter for follow-up examination after completed treatment for conditions other than malignant neoplasm Category: Surgical Plan [place] is [place] of [place] in next week and a half. Should she develop any wound issues or complaints during his symptom, she has been instructed to call the office will otherwise follow-up p.r.n.. All questions answered. Coding Level of Care Code Global (53150) Diagnoses Postop check Z09
== END 2024-02-15 13:55 | disposition home or self-care (01) ==
PROVIDERS: PCP Family Medicine; Visit Provider Surgery
DX: Z09 Encounter for follow-up examination after completed treatment for conditions other than malignant neoplasm (principal)
CPT/HCPCS: 99024

== ENCOUNTER → 2024-02-15 13:43 | Outpatient (BNVA) | payer MEDICAID, SELFPAY | PROVIDERS: PCP Family Medicine; Visit Provider Surgery | DX: Z09 Encounter for follow-up examination after completed treatment for conditions other than malignant neoplasm (principal); D17.1 Benign lipomatous neoplasm of skin and subcutaneous tissue of trunk | CPT/HCPCS: 99212 ==

== ENCOUNTER 2024-02-26 09:33 | Outpatient (REF) | payer MEDICAID, SELFPAY ==
[2024-02-26 14:18] LABS: MANUAL DIFF FLAG NO
[2024-02-26 14:47] LABS: Basophils Absolute Auto 0.1 X10*3/uL (0.0-0.2); Basophils Percent Auto 0.7 % (0-2); Eosinophils Absolute Auto 0.1 X10*3/uL (0.0-0.4); Hematocrit 38.1 % (37.0-47.0); Hemoglobin 11.8 g/dl (12.0-16.0); Imm Gran Abs Auto 0.02 X10*3/uL (0.00-0.03); Imm Gran Pct Auto 0.3 % (0.0-0.4); Lymphocytes Absolute Auto 1.8 X10*3/uL (1.2-4.9); Lymphocytes Percent Auto 25.8 % (20-40); Mean Corpuscular Hemoglobin 24.9 pg (27.0-33.0); Mean Corpuscular Volume 80.4 fL (80.0-98.0); Mean Platelet Volume 11.2 fL (9.4-12.3); Monocytes Absolute Auto 0.5 X10*3/uL (0.1-1.2); Monocytes Percent Auto 6.6 % (2-11); Neutrophils Absolute Auto 4.5 x10*3/uL (2.0-8.3); Neutrophils Percent Auto 65.6 % (45-73); Platelet Count 247 X10*3/uL (160-400); Red Blood Count 4.74 X10*6/uL (4.20-5.50); Red Cell Distribution Width 14.8 % (11.0-16.0); White Blood Count 6.9 X10*3/uL (4.8-10.8)
[2024-02-26 14:52] LABS: Microalbum/Creatinine Ratio Ur 5.5 ug/mg cr (<30)
[2024-02-26 14:55] LABS: Alanine Aminotransferase 27 U/L (0-31); Albumin Level 4.1 g/dL (3.5-5.0); Alkaline Phosphatase 89 U/L (39-117); Anion Gap 11 (12-20); Aspartate Amino Transferase 30 U/L (5-31); Bilirubin Total 0.4 mg/dL (0.0-1.0); Blood Urea Nitrogen 22 mg/dL (9-16); Calcium 9.1 mg/dL (8.4-10.2); Carbon Dioxide 25 mmol/L (22-29); Chloride 108 mmol/L (96-108); Cholesterol 191 mg/dL (<200); Estimated Glomerular Filt Rate > 60; Glucose Random 94 mg/dL (60-115); HDL Cholesterol 50 mg/dL (>40); LDL Cholesterol Calculated 128 mg/dL (<100); Potassium 4.4 mmol/L (3.3-5.1); Sodium 140 mmol/L (135-145); Total Protein 7.3 g/dL (6.5-8.0); Triglycerides 66 mg/dL (<150)
[2024-02-26 14:59] LABS: TSH reflex Free T4 1.07 uIU/mL (0.32-4.0)
[2024-02-26 15:04] LABS: Vitamin B12 484 pg/mL (200-900)
[2024-02-27 08:08] LABS: Follicle Stimulating Hormone 37.7 mIU/mL; Lutenizing Hormone 24.2 mIU/mL
[2024-03-05 22:28] LABS: Estradiol Ultra Sensitive 11 pg/mL
== END 2024-02-26 09:34 | disposition home or self-care (01) ==
LOC: CF 09:33
PROVIDERS: Visit Provider Family Medicine
DX: E11.9 Type 2 diabetes mellitus without complications (principal); N91.2 Amenorrhea, unspecified
CPT/HCPCS: 36415; 80053; 80061; 82043; 82570; 82607; 82670; 83001; 83002; 84443; 85025